=== PATIENT | male | born 1960 | race Caucasian/White ===

== ENCOUNTER 2018-06-17 18:47 | Emergency (ER) | payer OTHER | END 2018-06-17 20:55 | disposition home or self-care (01) | LOC: M ED 18:47 | DX: S82.032A Displaced transverse fracture of left patella, initial encounter for closed fracture (principal); W22.8XXA Striking against or struck by other objects, initial encounter; Y92.410 Unspecified street and highway as the place of occurrence of the external cause | CPT/HCPCS: 73564 ==

== ENCOUNTER → 2018-07-11 | Outpatient (CLI) | payer OTHER ==
[2018-07-11 14:06] LABS: FREE T3 2.6 PG/ML (2.2-4.0)
== END ==
LOC: M WUC 10:00
DX: Z13.29 Encounter for screening for other suspected endocrine disorder (principal)
CPT/HCPCS: 84443

== ENCOUNTER 2018-08-18 13:56 | Emergency (ER) | payer OTHER | END 2018-08-18 15:29 | disposition home or self-care (01) | LOC: M ED 13:56 | DX: M79.652 Pain in left thigh (principal); I10 Essential (primary) hypertension; N40.0 Benign prostatic hyperplasia without lower urinary tract symptoms; Z79.899 Other long term (current) drug therapy; Z79.82 Long term (current) use of aspirin; Z88.0 Allergy status to penicillin | CPT/HCPCS: 93971 ==

== ENCOUNTER 2018-09-06 08:18 | Day surgery (SDC) | payer OTHER ==
[2018-09-06] MEDS: NS 1,000 ML IV (09:37)
[2018-09-06] MEDS ORDERED: PROPOFOL 200 MG/20 ML VIAL As Ordered ×2 (10:42→10:43)
[2018-09-06] MEDS ORDERED: LIDOCAINE 2% INJ 100 MG/5 ML SDV (FOR ANES.) As Ordered (10:43)
== END 2018-09-06 11:48 | disposition home or self-care (01) ==
LOC: M OPP 11:48
DX: Z12.11 Encounter for screening for malignant neoplasm of colon (principal); K57.30 Diverticulosis of large intestine without perforation or abscess without bleeding; K64.8 Other hemorrhoids
CPT/HCPCS: 45378

== ENCOUNTER 2018-09-16 11:42 | Emergency (ER) | payer OTHER ==
[2018-09-16] MEDS: ACETAMINOPHEN 325 MG TAB PO (12:00)
[2018-09-16 12:42] LABS: INFLUENZA A AMPLIFICATION NEGATIVE (NEGATIVE); INFLUENZA B AMPLIFICATION NEGATIVE (NEGATIVE)
== END 2018-09-16 14:07 | disposition home or self-care (01) ==
LOC: M ED 11:42
DX: B34.9 Viral infection, unspecified (principal); M79.10 Myalgia, unspecified site; Z88.0 Allergy status to penicillin; Z79.899 Other long term (current) drug therapy; Z79.82 Long term (current) use of aspirin
CPT/HCPCS: 87502

== ENCOUNTER 2018-09-18 16:32 | Emergency (ER) | payer OTHER ==
[2018-09-18] MEDS: ACETAMINOPHEN 325 MG TAB PO (16:45)
[2018-09-18] MEDS ORDERED: ACETAMINOPHEN 325 MG TAB As Ordered (16:46)
[2018-09-18 19:58] LABS: KETONE, URINE AUTO RFX NEGATIVE (NEGATIVE); LEUKOCYTE ESTERASE UR AUTO RFX 3+ (NEGATIVE); MUCUS, URINE RFX SMALL (NEGATIVE); NITRITE, URINE AUTO RFX POSITIVE (NEGATIVE); RBC, URINE AUTO RFX 7 /HPF (0-3); SPECIFIC GRAVITY UR AUTO RFX 1.012 (1.002-1.035); SQUAM EPITHELIAL CELL UR AURFX 0 /HPF (0-6); WBC, URINE AUTO RFX TNTC /HPF (0-3)
[2018-09-18] MEDS: CIPROFLOXACIN 500 MG TAB PO (20:15)
== END 2018-09-18 20:27 | disposition home or self-care (01) ==
LOC: M ED 16:32
DX: N39.0 Urinary tract infection, site not specified (principal); R50.9 Fever, unspecified
CPT/HCPCS: 81001

== ENCOUNTER 2018-12-04 12:04 | Emergency (ER) | payer OTHER ==
[~2018-12-04] VITALS: Ht 188 cm; Wt 115.0 kg
[~2018-12-04 12:04] MED LIST: ACET-683 PO; AMLO5TAB6 PO; ASPI81TA85 PO; ATOR1TAB19 PO; CIPR-249 PO; DITR1TAB PO; FLOM0.4C39 PO; NAPR-885 PO; SENN1TAB2 PO
[2018-12-04] MEDS ORDERED: DOCU100C16 (12:13)
[2018-12-04 14:20] LABS: BLOOD UREA NITROGEN 12 MG/DL (7-18); CALCIUM LEVEL 8.5 MG/DL (8.8-10.2); CARBON DIOXIDE LEVEL 31 MEQ/L (21-32); CHLORIDE LEVEL 105 MEQ/L (98-107); CREATININE FOR GFR 0.86 MG/DL (0.70-1.30); GLOMERULAR FILTRATION RATE > 60.0 (>49); GLUCOSE, FASTING 84 MG/DL (70-100); POTASSIUM SERUM 4.2 MEQ/L (3.5-5.1); SODIUM LEVEL 139 MEQ/L (136-145)
[2018-12-04 15:02] VITALS: BP 121/78
== END 2018-12-04 15:03 | disposition home or self-care (01) ==
LOC: M ED 12:04
DX: R35.0 Frequency of micturition (principal); R60.0 Localized edema; I10 Essential (primary) hypertension; N40.0 Benign prostatic hyperplasia without lower urinary tract symptoms; Z98.890 Other specified postprocedural states; Z88.0 Allergy status to penicillin; Z79.899 Other long term (current) drug therapy

== ENCOUNTER 2019-11-15 11:03 | Day surgery (SDC) | payer OTHER ==
[~2019-11-15] VITALS: Ht 188 cm; Wt 114.7 kg
[~2019-11-15 11:03] MED LIST changes: +CLINDAMYCIN 600 MG in IV 1 EA IV ONE; +DOCU100C16; +IBUP-1022 PO; +LIDOCAINE 1% MDV 20ML VIAL SQ PRN; +LR 1,000 ML IV ONE; +MIDAZOLAM INJ 2 MG/2 ML VIAL (J2250) As Ordered ONE; +ONDANSETRON 4MG/2ML VIAL (J2405) As Ordered ONE; +SENN-53 PO; -SENN1TAB2 PO; +dexameTHASONE 4 MG/ML 1ML VIAL (J1100) As Ordered ONE; +fentaNYL 100 MCG/2 ML INJECTION (J3010) As Ordered ONE; +propofoL 500 MG/50 ML VIAL As Ordered ONE
[2019-11-15] MEDS ORDERED: CIDA500T2 PO (11:46)
[2019-11-15] MEDS ORDERED: VITA100T59 PO (11:46)
[2019-11-15] MEDS ORDERED: BUPIVACAINE HCL 0.5% 10 ML VIAL As Ordered ONE (12:10)
[2019-11-15] MEDS: dexameTHASONE 4 MG/ML 1ML VIAL (J1100) As Ordered ONE ×2 (12:10→12:56)
[2019-11-15] MEDS ORDERED: LIDOCAINE 1% MDV 20ML VIAL As Ordered ONE (12:10)
[2019-11-15 14:05] VITALS: BP 135/78
--- NOTE | 2019-11-15 19:42 | RO ---
DATE OF PROCEDURE: 11/15/2019 PREOPERATIVE DIAGNOSIS: Right second hammertoe. POSTOPERATIVE DIAGNOSIS: Right second hammertoe. PROCEDURE: Right second hammertoe correction. SURGEON: Dr. Woodrow Eller CONCILIATION COURT JUDGE: None. ANESTHESIA: Monitored anesthesia care and preoperative injection of 7 mL of 1 to 1 mixture of 1% Lidocaine plain and 1/2% Marcaine plain. ESTIMATED BLOOD LOSS: Minimal. MATERIALS: 4-0 Nylon and 3-0 Vicryl. COMPLICATIONS: None. CONDITION: Stable. Victorino Cohen is a 58-year-old man who presents to [facility] with painful right second hammertoe who presents today for surgical correction. Patient, site, and side were identified and marked in the preoperative holding area. Consent was reviewed and risks, complications and alternative to the procedure explained to the patient in detail and all questions were answered. PROCEDURE: The patient was brought to the operating room and placed on the operating room table in the supine position. Monitored anesthesia care was done by the anesthesia team. A preoperative injection of 7 mL of 1 to 1 mixture of 1% Lidocaine and 1/2% Marcaine plain were injected into the right foot. The right foot was prepped and draped in the usual sterile fashion. Tourniquet was applied to the right ankle and inflated at 250 mmHg. Dorsal incision drawn over the right second toe and carried through with a 15 blade. Extensor tendon was identified and resected at the proximal interphalangeal joint level. The collateral ligaments were released exposing the proximal phalanx and this was resected with a sagittal saw. Following this the extensor tendon was repaired with 3-0 Vicryl. There was still collection at the distal aspect of the toe and a percutaneous flexor tenotomy was performed at the distal interphalangeal joint level using #15 blade. The skin was repaired with 4-0 Nylon. The callus of the distal toes was removed using a #10 blade. The patient was brought to postanesthesia care unit with vital signs stable and neurovascular status intact. He we will weightbearing as tolerated in a postoperative shoe and followup in the office in 2 days.
== END 2019-11-15 14:16 | disposition home or self-care (01) ==
LOC: M SDC 11:03
PROVIDERS: ATTEND Podiatrist Foot & Ankle Surgery
DX: M20.41 Other hammer toe(s) (acquired), right foot (principal); I10 Essential (primary) hypertension; E78.5 Hyperlipidemia, unspecified; Z79.82 Long term (current) use of aspirin; Z79.899 Other long term (current) drug therapy; Z88.0 Allergy status to penicillin
CPT/HCPCS: 28285; 88300; J1100; J2250; J2405; J3010

== ENCOUNTER → 2020-03-06 | Outpatient (CLI) | payer OTHER ==
[~2020-03-06] MED LIST changes: +CIDA500T2 PO; -CLINDAMYCIN 600 MG in IV 1 EA IV ONE; -LIDOCAINE 1% MDV 20ML VIAL SQ PRN; -LR 1,000 ML IV ONE; -MIDAZOLAM INJ 2 MG/2 ML VIAL (J2250) As Ordered ONE; -ONDANSETRON 4MG/2ML VIAL (J2405) As Ordered ONE; +VITA100T59 PO; -dexameTHASONE 4 MG/ML 1ML VIAL (J1100) As Ordered ONE; -fentaNYL 100 MCG/2 ML INJECTION (J3010) As Ordered ONE; -propofoL 500 MG/50 ML VIAL As Ordered ONE
== END ==
LOC: M LAB 13:33
PROVIDERS: ATTEND Specialist
DX: N35.912 Unspecified bulbous urethral stricture, male (principal)

== ENCOUNTER → 2020-03-06 | Outpatient (CLI) | payer OTHER | LOC: M LABSMTC 12:55 | PROVIDERS: ATTEND Family Medicine | DX: Z20.828 Contact with and (suspected) exposure to other viral communicable diseases (principal) | CPT/HCPCS: C8903; U0003 ==

== ENCOUNTER 2020-07-28 17:59 | Emergency (ER) | payer OTHER ==
[~2020-07-28] VITALS: Ht 188 cm; Wt 120.5 kg
[~2020-07-28 17:59] MED LIST changes: +AMLO1TAB24 PO; -AMLO5TAB6 PO; -ASPI81TA85 PO; +ASPI81TA86 PO
[2020-07-28] MEDS ORDERED: GABAPENTIN 300 MG CAP PO ONE (20:45)
[2020-07-28 20:49] LABS: BASO % 0.5 % (0.0-1.0); EOS # 0.1 10^3/uL (0.0-0.5); EOS % 1.5 % (0.0-3.0); HEMATOCRIT 37.8 % (42.0-52.0); HEMOGLOBIN 12.1 g/dl (13.5-17.5); LYMPH # 2.1 10^3/uL (1.5-5.0); LYMPH % 25.3 % (24.0-44.0); MEAN CORPUSCULAR HEMOGLOBIN 28.2 pg (27.0-33.0); MEAN CORPUSCULAR VOLUME 88.1 fl (80.0-96.0); MONO # 0.7 10^3/uL (0.0-0.8); MONO % 7.9 % (0.0-5.0); NEUTROPHILS # 5.3 10^3/uL (1.5-8.5); NEUTROPHILS % 64.4 % (36.0-66.0); PLATELET COUNT, AUTOMATED 219 10^3/uL (150-450); RED BLOOD COUNT 4.29 10^6/uL (4.30-6.10); WHITE BLOOD COUNT 8.2 10^3/uL (4.0-10.0)
[2020-07-28 21:07] LABS: HEMOGLOBIN A1c 5.3 %
[2020-07-28 21:13] LABS: BLOOD UREA NITROGEN 14 MG/DL (7-18); CALCIUM LEVEL 8.4 MG/DL (8.8-10.2); CARBON DIOXIDE LEVEL 27 MEQ/L (21-32); CHLORIDE LEVEL 110 MEQ/L (98-107); CREATININE FOR GFR 0.88 MG/DL (0.70-1.30); GLOMERULAR FILTRATION RATE > 60.0 (>49); GLUCOSE, FASTING 84 MG/DL (70-100); IRON (FE) 51 UG/DL (65-175); PERCENT SATURATION 22.7 % (19.7-50.0); POTASSIUM SERUM 4.2 MEQ/L (3.5-5.1); SODIUM LEVEL 142 MEQ/L (136-145); TOTAL IRON BINDING CAPACITY 225 UG/DL (250-450)
[2020-07-28 22:31] VITALS: BP 152/87
[2020-07-28] MEDS ORDERED: NEUR300C PO (23:23)
== END 2020-07-29 00:09 | disposition home or self-care (01) ==
LOC: M ED 17:59
DX: E11.40 Type 2 diabetes mellitus with diabetic neuropathy, unspecified (principal); I10 Essential (primary) hypertension; E78.5 Hyperlipidemia, unspecified; N40.2 Nodular prostate without lower urinary tract symptoms; Z88.0 Allergy status to penicillin; Z79.899 Other long term (current) drug therapy

== ENCOUNTER → 2020-10-31 | Outpatient (CLI) | payer OTHER ==
[~2020-10-31] MED LIST changes: +NEUR300C PO
== END ==
LOC: M LAB 10:48
PROVIDERS: ATTEND Physician Assistant
DX: N40.1 Benign prostatic hyperplasia with lower urinary tract symptoms (principal)

== ENCOUNTER 2020-12-11 16:00 | Inpatient (IN) | payer OTHER ==
[~2020-12-11] VITALS: Ht 188 cm; Wt 116.1 kg
[~2020-12-11 16:00] MED LIST changes: -ASPI81TA26 PO; -CEPH500T PO; -IBUP80TA PO; -OXYB15TA14 PO
--- OUTSIDE RECORDS SUMMARY | 2020-12-11 16:07 | CCD | Continuity of Care Document ---
Author Author Victorino JOHNSON PA-C Organization Unknown Address [address] [place] [address] Phone [phone] Care Team Providers Care Waist Pleater Name Role Phone Valerie Pierson A[place]UST[place] AUTM [phone] Problems Description No Information Available Social History Type Date Description Comments Sex Unknown ETOH Use Occasionally consumes alcohol Tobacco Use Start: Unknown Denies Smoking Allergies, Adverse Reactions, Alerts Active Allergies Reaction Severity Comments Date Penicillin 06/21/2018 Medications Active Medications SIG Qnty Indications Ordering Provide r Date Ibuprofen 800mg Tablets Take 1 Tablet By Mouth Three Times A Day as Needed 90tabs R20.0 Bib Mcgarry MD 03/07/2019 Zanaflex 4mg Capsules 1 by mouth at bedtime 60caps M51.36 Matty Woods MD 08/03/2018 Oxybutynin Chloride ER 10mg Tablets ER 24HR 1 by mouth every day Unknown 00//0 000 Atorvastatin Calcium 10mg Tablets 1 by mouth every day Unknown Docqlace 100mg Capsules 3 caps by mouth every other day Unknown Amlodipine Besylate 5mg Tablets 1 by mouth every day Unknown Tamsulosin HCL 0.4mg Capsules 1 daily 1/2 hour after same meal Unknown Aspirin 81mg Tablets DR 1 by mouth every day Unknown Senna 8.6mg Tablets 1-2 by mouth every night at bedtime as needed Unknown Tylenol Extra Strength 500mg Table ts 1-2 pills 2-3x/d as needed Unknown 0 Immunizations Description No Information Available Vital Signs Date Vital Result Comment 03/07/2019 1:32pm BP Systolic 140 mmHg BP Diastolic 90 mmHg 06/21/2018 9:07am Body Temperature 98.4 F Height 71 inches 5'11" Weight 226.00 lb BMI (Body Mass Index) 31.5 kg/m2 Results Description No Information Available Procedures Date Code Description Status 11/25/2020 38411 X-Ray Shoulder Complete Complete d Medical Devices Description No Information Available Encounters Description No Information Available Assessments Date Code Description Provider 11/25/2020 M17.0 Bilateral primary osteoarthritis of knee Aston Johnson PA-C Plan of Treatment No Information Available Functional Status Description No Information Available Mental Status Description No Information Available Referrals Description No Information Available
--- OUTSIDE RECORDS SUMMARY | 2020-12-11 16:07 | CCD | Continuity of Care Document ---
Author Author Victorino LEGGETT DPM Organization Unknown Address [address] [place] [address], [address] [place] [address] Phone [phone] Care Team Providers Care Developing Machine Operator Name Role Phone Servage Valerie JACKMAN AUTM [phone] Canelo Duncan M.D AUTM [phone] Problems Active Problems Provider Date Hammer toe Woodrow Leggett DPM Onset: 08/29/2019 Corns and callosities Woodrow Leggett DPM Onset: 03/19/2020 Onychomycosis Woodrow Leggett DPM Onset: 03/19/2020 Social History Type Date Description Comments Sex Unknown ETOH Use Occasionally consumes beer Tobacco Use Start: Unknown Patient has never smoked Allergies, Adverse Reactions, Alerts Active Allergies Reaction Severity Comments Date Penicillin Hives 06/28/2018 Medications Active Medications SIG Qnty Indications Ordering Provide r Date Ammonium Lactate 12% Cream Apply To Feet Daily 140units Woodrow Leggett DPM 05/28/2020 Ondansetron HCL 4mg Tablets 1 tablet every 6 hours as needed for nausea 24tabs ALEXANDR Rivera 11/17/2019 Oxycodone-Acetaminophen 5-325mg Ta blets 1tablets every 6 hours as needed for pain 20tabs Woodrow Leggett DPM 11/17/2019 Hydrocodone-Acetaminophen 5-325mg Tablets 1-2 tablets by mouth every 6 hours as needed pain 20tabs Woodrow Leggett DPM 11/14/2019 Ciclopirox 8% Solution apply to affected nail(s) as directed 6.6units Woodrow Leggett DPM 11/07/2 018 Oxybutynin Chloride 5mg Tablets Unknown Polyethylene Glycol 3350 3350NF Packet Unknown Flucelvax Quadrivalent 2635-5719 0.5ml Jeannette Unknown Oxybutynin Chloride ER 5mg Tablets ER 24HR Unknown Hydrocortisone 2.5% Cream Unknown Hydrocortisone-Aloe 1% Cream Unknown Levofloxacin 500mg Tablets Unknown Ciprofloxacin HCL 500mg Tablets Unknown Mapap 500mg Tablets Unknown Tamsulosin HCL 0.4mg Capsules Unknown Docusate Sodium 100mg Capsules Unknown Aspir-Low 81mg Tablets DR Take One Tablet By Mouth Every Day Unknown Senna 8.6mg Tablets Servage ANPValerie L. Oxybutynin Chloride ER 10mg Tablets ER 24HR Servage ANP,Valerie L. Mapap 500mg Capsules Servage ANPDonaldValerie L. Atorvastatin Calcium 10mg Tablets Servage ANP,Valerie L. Amlodipine Besylate 5mg Tablets Servage ANP,Valerie L. Immunizations Description No Information Available Vital Signs Date Vital Result Comment 05/28/2020 10:45am BP Systolic 126 mmHg BP Diastolic 78 mmHg 10/09/2019 1:19pm Height 74 inches 6'2" Weight 256.00 lb BP Systolic 132 mmHg BP Diastolic 70 mmHg Heart Rate 75 /min BMI (Body Mass Index) 32.9 kg/m2 Results Description No Information Available Procedures Description No Information Available Medical Devices Description No Information Available Encounters Type Date Location Provider Dx Diagnosis Office Visit 09/30/2020 2:45p [place] [facility] Woodrow Leggett DPM M20.40 Other hammer toe(s) (acquired), unspecified foot L84 Corns and callosities Office Visit 07/29/2020 2:45p [place] [facility] Woodrow Leggett DPM M20.40 Other hammer toe(s) (acquired), unspecified foot L84 Corns and callosities B35.1 Tinea unguium Assessments Date Code Description Provider 09/30/2020 M20.40 Other hammer toe(s) (acquired), unspecified foot Woodrow Leggett DPM 09/30/2020 L84 Corns and callosities Woodrow Leggett DPM 07/29/2020 M20.40 Other hammer toe(s) (acquired), unspecified foot Woodrow Leggett DPM 07/29/2020 L84 Corns and callosities Woodrow Leggett DPM 07/29/2020 B35.1 Tinea unguium Woodrow Leggett DPM Plan of Treatment Future Appointment(s):* 02/17/2021 2:30 pm - Woodrow Leggett DPM at [facility] Functional Status Description No Information Available Mental Status Description No Information Available Referrals Refer to Reason for Referral Status Appt Date Woodrow Leggett DPM Created [address] [address] [phone]
--- OUTSIDE RECORDS SUMMARY | 2020-12-11 16:07 | CCD ---
Author Author [facility] ems Organization [facility] Address Unknown Phone Unavailable Care Team Providers Care Asset Protection Lead Name Role Phone Valerie Pierson Unavailable PROBLEMS Type Condition ICD9-CM Code EAW24-DI Code Onset Dates Condition S tatus SNOMED Code Notes Problem Arthritis M19.90 Active 5312348 Problem Essential hypertension I10 Active 89817120 He has a history of hypertension, but his blood pressure is quite well controlled on amlodipine 5 mg daily. Problem Benign prostatic hyperplasia , unspecified whether lower urinary tract symptoms present N40.0 Active 111465390 Problem Diverticulosis of large intestine without hemorrhage K57.30 Active 259240786 Problem BMI 30.0-30.9,adult Z68.30 Active 255772028 Problem Iron deficiency anemia, unspecified iron deficiency an emia type D50.9 Active 60146322 Problem Constipation, unspecified constipation type K59.00 Active 96504484 Problem Pure hypercholesterolemia E78.00 Active 846214 004 He is on atorvastatin therapy with optimal lipid control as of 09/26/2019. 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 He had a cystoscopy in April 2018 which showed a bulbous urethral stricture which was treated with laser urethrotomy and urethral dilation. Problem Injury of left knee, subsequent encounter S89.92XD Active 549119232 Problem Other intervertebral disc degeneration, lumbar region M51.36 Active 07265761 ALLERGIES Allergen (clinical drug ingredient) Drug/Non Drug Allergy do cumented on EMR Reaction Allergy Type Onset Date Status Penicillin (For Allergies Use Only) Hives Drug Allerg y Active ENCOUNTERS from 1960 to 2020-11-05 Encounter Location Date Provider Diagnosis [facility] [place] [address] Oct, Valerie Pierson Annual physical exam Z00.00 ; Essential hypertension I10 ; Pure hypercholesterolemia E78.00 ; Arthritis M19.90 ; Constipation, unspecified constipation type K59.00 ; Injury of left knee, subsequent encounter S89.92XD ; Urethral stricture due to infective diseases classified elsewhere N37 ; Benign prostatic hyperplasia, unspecified whether lower urinary tract symptoms present N40.0 ; Other intervertebral disc degeneration, lumbar region M51.36 ; Immunization refused Z28.21 and Iron deficiency anemia, unspecified iron deficiency anemia type D50.9 IMMUNIZATIONS Vaccine Route Administration Date Status Influenza (18 yrs & older) Flublok IM Intramuscular Aug 22, 2018 Administered SOCIAL HISTORY Tobacco Use: Social History Observation Description Date Details (start date - stop date) Never Smoker Sex Assigned At : Social History Observation Description Sex Assigned At Unknown Education: Question Answer Notes Level of Education: Not finished High School 10 grade Audit Question Answer Notes Total Score: 1 Interpretation: Alcohol Education Language: Question Answer Notes Languages spoken: Vietnamese Moravian: Question Answer Notes Moravian 21 Protestant Domestic Violence: Question Answer Notes Status: Sexual Hx: Question Answer Notes Had sex in the last 12 months (vaginal, oral, or anal)? Yes Have you ever had an STD? No with Women only Use protection? No Drug and Alcohol Question Answer Notes Total Score: 0 Interpretation: No problems reported Alcohol Screening: Question Answer Notes Did you have a drink containing alcohol in the past year? Ye s Points 1 Interpretation Negative How often did you have six or more drinks on one occas ion in the past year? Never (0 points) How many drinks did you have on a typica l day when you were drinking in the past year? 1 or 2 (0 points) How often did you have a drink containing alcohol in t he past year? Monthly or less (1 point) Tobacco Use: Question Answer Notes Are you a: never smoker never smoker REASON FOR REFERRAL No Information VITAL SIGNS Weight 262 lbs Oct, Height 74 in Oct, BMI 33.64 kg/m2 Oct, Heart Rate 79 /min Oct, Respiratory Rate 18 /min Oct, Temperature 98.8 degrees Fahrenheit Oct, Oximetry 95% Oct, Blood pressure systolic 100 mm Hg Oct, Blood pressure diastolic 70 mm Hg Oct, MEDICATIONS Medication SIG (Take, Route, Frequency, Duration) Notes Start Da te End Date Status Tamsulosin HCl 0.4 MG 1 capsule 30 minutes after t he same meal each day Orally Once a day for 30 Active Senna 8.6 MG TAKE 1 TO 2 TABLETS BY MOUTH BEFORE BEDTIME NEEDED fo r 30 Active Atorvastatin Calcium 10 MG 1 tablet Orally Once a day Active Aspirin Adult Low Dose 81 MG 1 tablet Orally Once a day for 30 Active Docusate Sodium 100 MG 2 tab Orally bid for 30 Active Tamsulosin HCl 0.4 MG 1 capsule 30 minutes after t he same meal each day Orally Once a day Active Lac-Hydrin 12 % 1 application to affected area Externally Twice a day Active Oxybutynin Chloride ER 10 MG 1 tablet Orally Once a day Active Docusate Sodium 100 MG 2 tab Orally bid for 30 day(s) Active Loratadine 10 MG 1 tablet Orally Once a day for 30 Active Aspirin Adult Low Dose 81 MG 1 tablet Orally Once a day Active PROCEDURES No Information RESULTS No Results REASON FOR VISIT Annual Exam 06 months follow up MEDICAL (GENERAL) HISTORY Type Description Date Medical History Essential hypertension Medical History Benign prostatic hyperplasia , unspecified whether lower urinary tract symptoms present Medical History Pure hypercholesterolemia Medical History Arthritis Medical History Constipation, unspecified constipation t ype Medical History BMI 30.0-30.9,adult Medical History 07/14/2018, 24-hour Holter m onitor, sinus rhythm, multiple PVCs, rare PACs Medical History 07/15/2018 PSA 2.81 Surgical History inguinal hernia left unknown Surgical History tonsils unknown Surgical History Cystoscopy: bulbous urethral stricture which was treated with laser urethrotomy and urethral dilation 05/09/2018 Surgical History colonoscopy -mild to moderate diverticul osis 10 year follow up 09/06/18 Surgical History Right 2nd hammertoe correction-Dr. Eller 11/15/2019 Goals Section No Information Health Concerns No Information MEDICAL EQUIPMENT No Information MENTAL STATUS No Information FUNCTIONAL STATUS No Information ASSESSMENTS Encounter Date Diagnosis Assessment Notes Treatment Notes Treatm ent Clinical Notes Oct, Annual physical exam (ICD-10 - Z00.00) age appropriate anticipatory guidance given, per USPSTF recommendations; immunizations up to date. discussed plans for implementing improvement in identified areas Oct, Essential hypertension (ICD-10 - I10) Per JNC 8 guidelines, goal BP < 140/90 <60,on norvasc.. Advised heart-healthy diet, sodium restriction continues to follow with Dr. Duncan Oct, Pure hypercholesterolemia (ICD-10 - E78.00) tolerating lipitor, had cardiology appt scheduled with Dr. Flowers states he had a holter monitor which was negative. found in the old notes. found lipid from june Lipids cholesterol 142, triglyceride 72, HDL 54, LDL 75, risk factor 2.6 Lastest lipids 09/26/19 chol 140, tri 73, hdl 68, ldl75, risk fator 2.1 10/[address] Duncan, signed release to obtain Oct, Arthritis (ICD-10 - M19.90) states he has arthritis in his back went to ortho Oct, Constipation, unspecified constipation type (ICD -10 - K59.00) takes stool softners with effect, states he wants to increase his softners discussed with pt oxybutynin is contributing to his issues Oct, Injury of left knee, subsequent encounter (ICD-1 0 - S89.92XD) pt states this is resolved. Oct, Urethral stricture due to in fective diseases classified elsewhere (ICD-10 - N37) Treated by urology in Dr. Catalino Maria, Oct, Benign prostatic hyperplasia , unspecified whether lower urinary tract symptoms present (ICD-10 - N40.0) Currently on tamazolin, and oxybutynin. Discussed with patient that oxybutynin will cause dry mucous membranes of the eyes, mouth, urinary and intestinal system PSA 03/31/18=2.54 thru urology2 no recent numbers Oct, Other intervertebral disc de generation, lumbar region (ICD-10 - M51.36) Oct, Immunization refused (ICD-10 - Z28.21) flu vaccine last fall at [facility] Oct, Iron deficiency anemia, unsp ecified iron deficiency anemia type (ICD-10 - D50.9) told by Dr. Duncan that he is iron deficient, taking a iron tab per day, states Dr. Duncan is sending him to GI Oct, Other signed release to get records from Dr. Philip, 6 month follow up PLAN OF TREATMENT Medication Medication Name Sig Start Date Stop Date Oxybutynin Chloride ER 10 MG 1 tablet Orally Once a day Docusate Sodium 100 MG 2 tab Orally bid for 30 day(s) Aspirin Adult Low Dose 81 MG 1 tablet Orally Once a day Tamsulosin HCl 0.4 MG 1 capsule 30 minutes after t he same meal each day Orally Once a day Atorvastatin Calcium 10 MG 1 tablet Orally Once a day Treatment Notes Assessment Notes Clinical Notes Annual physical exam age appropriate ant icipatory guidance given, per USPSTF recommendations; immunizations up to date. discussed plans for implementing improvement in identified areas Essential hypertension Per JNC 8 guideli justin, goal BP < 140/90 <60,on norvasc.. Advised heart-healthy diet, sodium restriction continues to follow with Dr. Duncan Pure hypercholesterolemia tolerating lip itor, had cardiology appt scheduled with Dr. Flowers states he had a holter monitor which was negative. found in the old notes. found lipid from june acceptableLipids cholesterol 142, triglyceride 72, HDL 54, LDL 75, risk factor 2.6Lastest lipids 09/26/19 chol 140, tri 73, hdl 68, ldl75, risk fator 2.08/[address] Duncan, signed release to obtain Arthritis states he has arthri tis in his back went to ortho Constipation, unspecified constipation type takes stool softners with effect, states he wants to increase his softners discussed with pt oxybutynin is contributing to his issues Injury of left knee, subsequent encounter pt states this is resolved. Urethral stricture due to infective diseases classified else where Treated by urology in Dr. Catalino Maria, Benign prostatic hyperplasia, unspecifie d whether lower urinary tract symptoms present Currently on tamazolin, and oxybutynin. Discussed with patient that oxybutynin will cause dry mucous membranes of the eyes, mouth, urinary and intestinal systemPSA 03/31/18=2.54 thru [id number] recent numbers Immunization refused flu vaccine last fa ll at [facility] Iron deficiency anemia, unspecified iron deficiency anemia t ype told by Dr. Duncan that he is iron deficient, taking a iron tab per day, states Dr. Duncan is sending him to GI Next Appt Details Valerie 6 months Reason: Provider Name:Valerie Pierson, 10:30:00 AM, [address] [place], [address], Insurance Providers Payer Name Payer Address Payer Phone Insured Name Patient Relati onship to Insured Coverage Start Date Coverage End Date [facility] [employer] CLAIM[employer] DEPT [address] [facility] [phone] EVGENY MENDEZ
--- OUTSIDE RECORDS SUMMARY | 2020-12-11 16:07 | CCD | Continuity of Care Document ---
Author Author Victorino LEGGETT DPM Organization Unknown Address [address] [place] [address], [facility] [address] [place] [address] Phone [phone] Care Team Providers Care Plumber Pipe Fitting Name Role Phone Servage Valerie JACKMAN AUTM [phone] Canelo Duncan M.D AUTM [phone] Problems Active Problems Provider Date Hammer toe [...] Glycol 3350 3350NF Packet Unknown Flucelvax Quadrivalent 5446-1534 0.5ml Jeannette Unknown Oxybutynin Chloride ER 5mg Tablets ER 24HR Unknown Hydrocortisone 2.5% Cream Unknown Hydrocortisone-Aloe 1% Cream Unknown Levofloxacin 500mg Tablets Unknown Ciprofloxacin HCL 500mg Tablets Unknown Mapap 500mg Tablets Unknown Tamsulosin HCL 0.4mg Capsules Unknown Docusate Sodium 100mg Capsules Unknown Aspir-Low 81mg Tablets DR Take One Tablet By Mouth Every Day Unknown Senna 8.6mg Tablets Servage ANPMonicae L. Oxybutynin Chloride ER 10mg Tablets ER 24HR Servage ANPMonicae L. Mapap 500mg Capsules Servage ANPValerie L. Atorvastatin Calcium 10mg Tablets Servage ANP,Valerie [...] Date Location Provider Dx Diagnosis Office Visit 12/09/2020 2:30p [place] [facility] Woodrow Leggett DPM M20.40 Other hammer toe(s) (acquired), unspecified foot L60.0 Ingrowing nail L84 Corns and callosities Office Visit 09/30/2020 2:45p [place] [facility] Woodrow Leggett DPM M20.40 Other hammer toe(s) (acquired), unspecified foot L84 Corns and callosities Office Visit 07/29/2020 2:45p [facility] Woodrow Leggett, SHANNON M20.40 Other hammer toe(s) (acquired), unspecified foot L84 Corns and callosities B35.1 Tinea unguium Assessments Date Code Description Provider 12/09/2020 M20.40 Other hammer toe(s) (acquired), unspecified foot Woodrow Leggett, DPM 12/09/2020 L60.0 Ingrowing nail Woodrow Leggett, DPM 12/09/2020 L84 Corns and callosities Woodrow Leggett, DPM 09/30/2020 M20.40 Other hammer toe(s) (acquired), unspecified foot Woodrow Leggett, ALEXANDRM 09/30/2020 L84 Corns and callosities Woodrow Leggett, DPM 07/29/2020 M20.40 Other hammer toe(s) (acquired), unspecified foot Woodrow Leggett, DPM 07/29/2020 L84 Corns and callosities Woodrow Leggett, DPM 07/29/2020 B35.1 Tinea unguium Woodrow Leggett DPM Plan of Treatment Future Appointment(s):* 02/17/2021 2:30 pm - Woodrow Leggett DPM at [facility] Functional Status Description No Information Available Mental Status Description No Information Available Referrals Refer to Dr Reason for Referral Status Appt Date Woodrow Leggett DPM Created [address] [address] [phone]
--- OUTSIDE RECORDS SUMMARY | 2020-12-11 16:07 | CCD | Continuity of Care Document ---
Author Author Victorino MASON M.D. Organization Unknown Address [address] [place] [id number] Phone [phone] Care Team Providers Care Farm Machinery Engine Mechanic Name Role Phone Diana MASON AUTM [phone] Social History Type Date Description Comments Sex Unknown Allergies, Adverse Reactions, Alerts Description No Known Drug Allergies Medications Active Medications SIG Qnty Indications Ordering Provide r Date Dok 100mg Capsules Take Two Capsules By Mouth Twice A Day Unknown Senna 8.6mg Tablets Take 1 To 2 Tablets By Mouth Before Bedtime as Needed Unknown Oxybutynin Chloride ER 15mg Tablets ER 24HR Take One Tablet By Mouth Every Day Unknow n Tamsulosin HCL 0.4mg Capsules Take 1 Capsule By Mouth Once A Day 30 Minutes After The Same Meal Unknown SM Aspirin Adult Low Strength 81mg Tablets DR Take 1 Tablet By Mouth Once A Day Unknown Amlodipine Besylate 5mg Tablets Take One Tablet By Mouth Every Day Unknown Ibuprofen 800mg Tablets Take 1 Tablet By Mouth Three Times A Day as Needed Unknown Atorvastatin Calcium 10mg Tablets Take One Tablet By Mouth Every Day Unknown Ammonium Lactate 12% Cream Apply To Feet Daily Unknown Gabapentin 300mg Capsules Unknown Acetaminophen Extra Strength 500mg Tablets Take One Tablet By Mouth Every 6 Hours as Needed Unknown Loratadine 10mg Tablets Take One Tablet By Mouth Every Day Unknown Famotidine 20mg Tablets Take 1 Tablet By Mouth Once A Day AT Bedtime as Needed Unknown Oxycodone-Acetaminophen 5-325mg Ta blets Take One Tablet By Mouth Every 6 Hours as Needed For Pain Maximum Daily Dose 4 Tablets Unknown Ondansetron HCL 4mg Tablets Take One Tablet By Mouth Every 6 Hours as Needed For Nausea Unknown Hydrocodone-Acetaminophen 5-325mg Tablets Unknown Vital Signs Date Vital Result Comment 10/21/2020 9:42am Height 73 inches 6'1" Weight 269.00 lb BMI (Body Mass Index) 35.5 kg/m2 Body Temperature 99.0 F BP Systolic 120 mmHg BP Diastolic 75 mmHg Heart Rate 70 /min O2 % BldC Oximetry 97 % Procedures Date Code Description Status 07/22/2020 28551 Echocardiogram, Complete Complet ed Encounters Type Date Location Provider Dx Diagnosis Office Visit 07/22/2020 10:00a [facility] I11.9 Hypertensive heart disease without heart failure E78.5 Hyperlipidemia, unspecified I34.0 Nonrheumatic mitral (valve) insufficiency Assessments Date Code Description Provider 07/22/2020 I11.9 Hypertensive heart disease witho ut heart failure [facility] 07/22/2020 E78.5 Hyperlipidemia, unspecified [facility] 07/22/2020 I34.0 Nonrheumatic mitral (valve) insu fficiency [facility] Referrals Refer to Dr Reason for Referral Status Appt Date Canelo Duncan M.D. Closed [address] [place], [place] [id number] [phone]
--- OUTSIDE RECORDS SUMMARY | 2020-12-11 16:07 | CCD | Continuity of Care Document ---
Author Author Victorino NIELSEN M.D. Organization Unknown Address [facility] [address] [place] [address] Phone [phone] Problems Active Problems Provider Date Pure hypercholesterolemia Jose Nielsen M.D. Onset: 018 Essential hypertension Jose Nielsen M.D. Onset: 07/13/2018 Male urethral stricture Jose Nielsen M.D. Onset: 1 Unspecified bulbous urethral stricture, male Jose Nieslen M.D. Onset: 01/24/2019 Social History Type Date Description Comments Sex Unknown Tobacco Use Start: Unknown Never Smoked Cigarettes Tobacco Use Start: Unknown Never Smoked Cigars Tobacco Use Start: Unknown Never Smoked A Pipe Tobacco Use Start: Unknown Never Used Smokeless Tobacco ETOH Use Occasionally consumes alcohol Tobacco Use Start: Unknown Patient has never smoked Recreational Drug Use Denies Drug Use Allergies, Adverse Reactions, Alerts Active Allergies Reaction Severity Comments Date Penicillin hives 07/13/2018 NKFA 04/25/2019 NKEA 04/25/2019 Medications Active Medications SIG Qnty Indications Ordering Provide r Date Oxybutynin Chloride ER 15mg Tablets ER 24HR Take One Tablet By Mouth Every Day 30tabs Jose Nielsen M.D. 07/26/2019 Atorvastatin Calcium 10mg Tablets 1 by mouth every day Unknown Tamsulosin HCL 0.4mg Capsules 1 by mouth every day Unknown Aspir-[address] 1 by mouth every day Unknown Senna S 8.6-50mg Tablets 2 tabs by mouth every day Unknown Docusate Calcium 240mg Capsules Unknown Tylenol Extra Strength 500mg Table ts 1 tab by mouth three times a day as needed Unknown Aspir-Low 81mg Tablets DR 1 by mouth every day Unknown Immunizations Description No Information Available Vital Signs Date Vital Result Comment 11/05/2020 8:58am BP Systolic 135 mmHg BP Diastolic 86 mmHg Heart Rate 73 /min Respiratory Rate 18 /min O2 % BldC Oximetry 93 % 04/30/2020 12:55pm BP Systolic 123 mmHg BP Diastolic 76 mmHg Heart Rate 67 /min Respiratory Rate 20 /min O2 % BldC Oximetry 93 % Weight 265.00 lb Weight 120.204 kg Results Description No Information Available Procedures Description No Information Available Medical Devices Description No Information Available Encounters Type Date Location Provider Dx Diagnosis Office Visit 11/05/2020 9:30a [facility] Jose Nielsen M.D. N35.912 Unspecified bulbous urethral stricture, male R35.0 Frequency of micturition N40.1 Benign prostatic hyperplasia with lower urinary tract symp R39.14 Feeling of incomplete bladde r emptying R97.20 Elevated prostate specific a ntigen [PSA] Assessments Date Code Description Provider 11/05/2020 N35.912 Unspecified bulbous urethral str icture, male Jose Nielsen M.D. 11/05/2020 R35.0 Frequency of micturition Jose Nielsen M.D. 11/05/2020 N40.1 Benign prostatic hyperplasia wit h lower urinary tract symptoms Jose Nielsen M.D. 11/05/2020 R39.14 Feeling of incomplete bladder em ptying Jose Nielsen M.D. 11/05/2020 R97.20 Elevated prostate specific antig en [PSA] Jose Nielsen M.D. Plan of Treatment Future Appointment(s):* 05/06/2021 9:45 am - Urology Resource Schedule at [facility] 11/05/2020 - Jose Nielsen M.D.* N35.912 Unspecified bulbous urethral stricture, male * R35.0 Frequency of micturition * N40.1 Benign prostatic hyperplasia with lower urinary tract symptoms * R39.14 Feeling of incomplete bladder emptying * R97.20 Elevated prostate specific antigen [PSA] Functional Status Description No Information Available Mental Status Description No Information Available Referrals Description No Information Available
--- OUTSIDE RECORDS SUMMARY | 2020-12-11 16:07 | CCD | Continuity of Care Document ---
Author Author Victorino JOHNSON PA-C Organization Unknown Address [address] [place] [address] Phone [phone] Care Team Providers Care Fulfillment Specialist Name Role Phone Valerie Pierson [place] AUTM [phone] Problems Description No Information Available Social History [...] Available Procedures Date Code Description Status 11/25/2020 10680 X-Ray Shoulder Complete Complete d 11/25/2020 00651 Inject/Drain Joint/Bursa Major C ompleted Medical Devices Description No Information Available Encounters Type Date Location Provider Dx Diagnosis Office Visit 11/25/2020 10:30a [facility] Aston Johnson PA-C M1 7.0 Bilateral primary osteoarthritis of knee M75.41 Impingement syndrome of righ t shoulder Assessments Date Code Description Provider 11/25/2020 M17.0 Bilateral primary osteoarthritis of knee Aston Johnson PA-C 11/25/2020 M75.41 [facility] Plan of Treatment Future Appointment(s):* 12/13/2020 10:15 am - Aston Johnson PA-C at [facility] 11/25/2020 - Aston Johnson PA-C* M17.0 Bilateral primary osteoarthritis of knee * M75.41 Impingement syndrome of right shoulder Functional Status Description No Information Available Mental Status Description No Information Available Referrals Description No Information Available
--- OUTSIDE RECORDS SUMMARY | 2020-12-11 16:07 | CCD | Continuity of Care Document ---
Author Author Victorino LEGGETT DPM Organization Unknown Address [address] [place] [address], [address] [place] [address] Phone [phone] Care Team Providers Care Steam Plant Operator Name Role Phone Servage Valerie JACKMAN AUTM [phone] Canelo Duncan M.D AUTM [phone] Problems Active Problems Provider Date Hammer toe [...] Glycol 3350 3350NF Packet Unknown Flucelvax Quadrivalent [id number] 0.5ml Jeannette Unknown Oxybutynin Chloride ER 5mg Tablets ER 24HR Unknown Hydrocortisone 2.5% Cream Unknown Hydrocortisone-Aloe 1% Cream Unknown Levofloxacin 500mg Tablets Unknown Ciprofloxacin HCL 500mg Tablets Unknown Mapap 500mg Tablets Unknown Tamsulosin HCL 0.4mg Capsules Unknown Docusate Sodium 100mg Capsules Unknown Aspir-Low 81mg Tablets DR Take One Tablet By Mouth Every Day Unknown Senna 8.6mg Tablets Servage ANPMoincae L. Oxybutynin Chloride ER 10mg Tablets ER 24HR Servage ANPMonicae L. Mapap 500mg Capsules Servage ANPDonaldValerie L. [...] Provider Dx Diagnosis Office Visit 09/30/2020 2:45p [facility] Woodrow Leggett DPM M20.40 Other hammer toe(s) (acquired), unspecified foot L84 Corns and callosities Office Visit 07/29/2020 2:45p [facility] Woodrow Leggett DPM M20.40 Other hammer toe(s) (acquired), unspecified foot L84 Corns and callosities B35.1 Tinea unguium Office Visit 05/28/2020 10:45a [facility] Woodrow Leggett DPM M20.40 Other hammer toe(s) (acquired), unspecified foot L84 Corns and callosities Assessments Date Code Description Provider 09/30/2020 M20.40 Other hammer toe(s) (acquired), unspecified foot Woodrow Leggett, SHANNON 09/30/2020 L84 Corns and callosities Woodrow Leggett, SHANNON 07/29/2020 M20.40 Other hammer toe(s) (acquired), unspecified foot Woodrow Leggett, SHANNON 07/29/2020 L84 Corns and callosities Woodrow Leggett, SHANNON 07/29/2020 B35.1 Tinea unguium Woodrow Leggett, SHANNON 05/28/2020 M20.40 Other hammer toe(s) (acquired), unspecified foot Woodrow Leggett, SHANNON 05/28/2020 L84 Corns and callosities Woodrow Leggett DPM Plan of Treatment Future Appointment(s):* 12/09/2020 2:45 pm - Woodrow Leggett DPM at [facility] Functional Status Description No Information Available Mental Status Description No Information Available Referrals Refer to Dr Reason for Referral Status Appt Date Woodrow Leggett DPM Created [address] [address] [phone]
--- OUTSIDE RECORDS SUMMARY | 2020-12-11 16:08 | CCD ---
Author Author [facility] Address Unknown Phone Unavailable Care Team Providers Care Combustion Engineer Name Role Phone KRISTAENOW, Anupama TREVINO PA Unavailable Unavailable SYMENOW, Anupama CHRISTOPHER PA Unavailable Unavailable SYMENOW, Anupama CHRISTOPHER PA Unavailable Unavailable SYMENOW, Anupama CHRISTOPHER PA Unavailable Unavailable SYMENOW, Anupama CHRISTOPHER PA Unavailable Unavailable SYMENOW, Anupama CHRISTOPHER PA Unavailable Unavailable SYMENOW, Anupama CHRISTOPHER PA Unavailable Unavailable SYMENOW, Anupama CHRISTOPHER PA Unavailable Unavailable SYMENOW, G CHRISTOPHER PA Unavailable Unavailable SYMENOW, G CHRISTOPHER PA Unavailable Unavailable SYMENOW, G CHRISTOPHER PA Unavailable Unavailable SYMENOW, G CHRISTOPHER PA Unavailable Unavailable SYMENOW, G CHRISTOPHER PA Unavailable Unavailable SYMENOW, G CHRISTOPHER PA Unavailable Unavailable SYMENOW, G CHRISTOPHER PA Unavailable Unavailable SYMENOW, G CHRISTOPHER PA Unavailable Unavailable SYMENOW, G CHRISTOPHER PA Unavailable Unavailable Servage, L Valerie LAP REGULATOR Unavailable Unavailable Servage, L Valerie LAP REGULATOR Unavailable Unavailable Servage, L Valerie LAP REGULATOR Unavailable Unavailable Servage, L Valerie LAP REGULATOR Unavailable Unavailable Servage, L Valerie LAP REGULATOR Unavailable Unavailable Servage, L Valerie LAP REGULATOR Unavailable Unavailable Servage, L Valerie LAP REGULATOR Unavailable Unavailable Servage, L Valerie LAP REGULATOR Unavailable Unavailable Servage, L Valerie LAP REGULATOR Unavailable Unavailable Servage, L Valerie LAP REGULATOR Unavailable Unavailable Servage, L Valerie LAP REGULATOR Unavailable Unavailable Servage, L Valerie LAP REGULATOR Unavailable Unavailable Servage, L Valerie LAP REGULATOR Unavailable Unavailable Servage, L Valerie LAP REGULATOR Unavailable Unavailable Servage, L Valerie LAP REGULATOR Unavailable Unavailable Servage, L Valerie LAP REGULATOR Unavailable Unavailable Servage, L Valerie LAP REGULATOR Unavailable Unavailable Servage, L Valerie LAP REGULATOR Unavailable Unavailable Servage, L Valerie LAP REGULATOR Unavailable Unavailable Servage, L Valerie LAP REGULATOR Unavailable Unavailable Servage, L Valerie LAP REGULATOR Unavailable Unavailable Servage, L Valerie LAP REGULATOR Unavailable Unavailable Servage, L Valerie LAP REGULATOR Unavailable Unavailable Servage, L Valerie LAP REGULATOR Unavailable Unavailable Servage, L Valerie LAP REGULATOR Unavailable Unavailable Servage, L Valerie LAP REGULATOR Unavailable Unavailable Servage, L Valerie LAP REGULATOR Unavailable Unavailable Servage, L Valerie LAP REGULATOR Unavailable Unavailable Servage, L Valerie LAP REGULATOR Unavailable Unavailable Servage, L Valerie LAP REGULATOR Unavailable Unavailable Servage, L Valerie LAP REGULATOR Unavailable Unavailable Servage, L Valerie LAP REGULATOR Unavailable Unavailable Servage, L Valerie LAP REGULATOR Unavailable Unavailable Servage, L Valerie LAP REGULATOR Unavailable Unavailable Servage, L Valerie LAP REGULATOR Unavailable Unavailable Servage, L Valerie LAP REGULATOR Unavailable Unavailable Servage, L Valerie LAP REGULATOR Unavailable Unavailable Servage, L Valerie LAP REGULATOR Unavailable Unavailable Servage, L Valerie LAP REGULATOR Unavailable Unavailable Servage, L Valerie LAP REGULATOR Unavailable Unavailable Servage, L Valerie LAP REGULATOR Unavailable Unavailable Servage, L Valerie LAP REGULATOR Unavailable Unavailable Servage, L Valerie LAP REGULATOR Unavailable Unavailable Servage, L Valerie LAP REGULATOR Unavailable Unavailable Servage, L Valerie LAP REGULATOR Unavailable Unavailable Servage, L Valerie LAP REGULATOR Unavailable Unavailable Servage, L Valerie LAP REGULATOR Unavailable Unavailable Servage, L Valerie LAP REGULATOR Unavailable Unavailable Servage, L Valerie LAP REGULATOR Unavailable Unavailable Servage, L Valerie LAP REGULATOR Unavailable Unavailable Servage, L Valerie LAP REGULATOR Unavailable Unavailable Servage, L Valerie LAP REGULATOR Unavailable Unavailable Servage, L Valerie LAP REGULATOR Unavailable Unavailable Servage, L Valerie LAP REGULATOR Unavailable Unavailable Servage, L Valerie LAP REGULATOR Unavailable Unavailable Servage, L Valerie LAP REGULATOR Unavailable Unavailable CROOKS SR, UMU WILD MD Unavailable Unavailable CROOKS SR, UMU WILD MD Unavailable Unavailable CROOKS SR, UMU WILD MD Unavailable Unavailable CROOKS SR, UMU WILD MD Unavailable Unavailable CROOKS SR, UMU WILD MD Unavailable Unavailable CROOKS SR, UMU WILD MD Unavailable Unavailable CROOKS SR, UMU WILD MD Unavailable Unavailable CROOKS SR, UMU WILD MD Unavailable Unavailable CROOKS SR, UMU WILD MD Unavailable Unavailable CROOKS SR, UMU WILD MD Unavailable Unavailable CROOKS SR, UMU WILD MD Unavailable Unavailable CROOKS SR, UMU WILD MD Unavailable Unavailable CROOKS SR, UMU WILD MD Unavailable Unavailable CROOKS SR, UMU WILD MD Unavailable Unavailable CROOKS SR, UMU WILD MD Unavailable Unavailable CROOKS SR, UMU WILD MD Unavailable Unavailable CROOKS SR, UMU WILD MD Unavailable Unavailable CROOKS SR, UMU WILD MD Unavailable Unavailable CROOKS SR, UMU WILD MD Unavailable Unavailable CROOKS SR, UMU WILD MD Unavailable Unavailable COROKS SR, UMU WILD MD Unavailable Unavailable CROOKS SR, UMU WILD MD Unavailable Unavailable CROOKS SR, UMU WILD MD Unavailable Unavailable CROOKS SR, UMU WILD MD Unavailable Unavailable CROOKS SR, UMU WILD MD Unavailable Unavailable CROOKS SR, UMU WILD MD Unavailable Unavailable CROOKS SR, UMU WILD MD Unavailable Unavailable CROOKS SR, UMU WILD MD Unavailable Unavailable CROOKS SR, UMU WILD MD Unavailable Unavailable CROOKS SR, UMU WILD MD Unavailable Unavailable CROOKS SR, UMU WILD MD Unavailable Unavailable CROOKS SR, UMU WILD MD Unavailable Unavailable CROOKS SR, UMU WILD MD Unavailable Unavailable CROOKS SR, UMU WILD MD Unavailable Unavailable CROOKS SR, UMU WILD MD Unavailable Unavailable CROOKS SR, UMU WILD MD Unavailable Unavailable CROOKS SR, UMU WILD MD Unavailable Unavailable CROOKS SR, UMU WILD MD Unavailable Unavailable CROOKS SR, UMU WILD MD Unavailable Unavailable CROOKS SR, UMU WILD MD Unavailable Unavailable CROOKS SR, UMU WILD MD Unavailable Unavailable CROOKS SR, UMU WILD MD Unavailable Unavailable CROOKS SR, UMU WILD MD Unavailable Unavailable CROOKS SR, UMU WILD MD Unavailable Unavailable CROOKS SR, UMU WILD MD Unavailable Unavailable CROOKS SR, UMU WILD MD Unavailable Unavailable CROOKS SR, UMU WILD MD Unavailable Unavailable CROOKS SR, UMU WILD MD Unavailable Unavailable CROOKS SR, UMU WILD MD Unavailable Unavailable CROOKS SR, UMU WILD MD Unavailable Unavailable CROOKS SR, UMU WILD MD Unavailable Unavailable CROOKS SR, UMU WILD MD Unavailable Unavailable CROOKS SR, UMU WILD MD Unavailable Unavailable CROOKS SR, UMU WILD MD Unavailable Unavailable MAJAK, R GAYLA DPM Unavailable Unavailable MAJAK, R GAYLA DPM Unavailable Unavailable MAJAK, R GAYLA DPM Unavailable Unavailable MAJAK, R GAYLA DPM Unavailable Unavailable MAJAK, R GAYLA DPM Unavailable Unavailable MAJAK, R GAYLA DPM Unavailable Unavailable MAJAK, R GAYLA DPM Unavailable Unavailable MAJAK, R GAYLA DPM Unavailable Unavailable MAJAK, R GAYLA DPM Unavailable Unavailable MAJAK, R GAYLA DPM Unavailable Unavailable MAJAK, R GAYLA DPM Unavailable Unavailable MAJAK, R GAYLA DPM Unavailable Unavailable MAJAK, R GAYLA DPM Unavailable Unavailable MAJAK, R GAYLA DPM Unavailable Unavailable MAJAK, R GAYLA DPM Unavailable Unavailable MAJAK, R GAYLA DPM Unavailable Unavailable MAJAK, R GAYLA DPM Unavailable Unavailable MAJAK, R GAYLA DPM Unavailable Unavailable MAJAK, R GAYLA DPM Unavailable Unavailable MAJAK, R GAYLA DPM Unavailable Unavailable MAJAK, R GAYLA DPM Unavailable Unavailable MAJAK, R GAYLA DPM Unavailable Unavailable MAJAK, R GAYLA DPM Unavailable Unavailable MAJAK, R GAYLA DPM Unavailable Unavailable MAJAK, R GAYLA DPM Unavailable Unavailable MAJAK, R GAYLA DPM Unavailable Unavailable MAJAK, R GAYLA DPM Unavailable Unavailable MAJAK, R GAYLA DPM Unavailable Unavailable MAJAK, R GAYLA DPM Unavailable Unavailable MAJAK, R GAYLA DPM Unavailable Unavailable ARNULFO, MAQBOOL JOSUE MD Unavailable Unavailable ARNULFO, MAQBOOL JOSUE MD Unavailable Unavailable ARNULFO, MAQBOOL JOSUE MD Unavailable Unavailable ARNULFO, MAQBOOL JOSUE MD Unavailable Unavailable ARNULFO, MAQBOOL JOSUE MD Unavailable Unavailable ARNULFO, MAQBOOL JOSUE MD Unavailable Unavailable ARNULFO, MAQBOOL JOSUE MD Unavailable Unavailable ARNULFO, MAQBOOL JOSUE MD Unavailable Unavailable ARNULFO, MAQBOOL JOSUE MD Unavailable Unavailable ARNULFO, MAQBOOL JOSUE MD Unavailable Unavailable ARNULFO, MAQBOOL JOSUE MD Unavailable Unavailable ARNULFO, MAQBOOL JOSUE MD Unavailable Unavailable ARNULFO, MAQBOOL JOSUE MD Unavailable Unavailable ARNULFO, MAQBOOL JOSUE MD Unavailable Unavailable ARNULFO, MAQBOOL JOSUE MD Unavailable Unavailable ARNULFO, MAQBOOL JOSUE MD Unavailable Unavailable ARNULFO, MAQBOOL JOSUE MD Unavailable Unavailable ARNULFO, MAQBOOL JOSUE MD Unavailable Unavailable ARNULFO, MAQBOOL JOSUE MD Unavailable Unavailable ARNULFO, MAQBOOL JOSUE MD Unavailable Unavailable ARNULFO, MAQBOOL JOSUE MD Unavailable Unavailable ARNULFO, MAQBOOL JOSUE MD Unavailable Unavailable ARNULFO, MAQBOOL JOSUE MD Unavailable Unavailable ARNULFO, MAQBOOL JOSUE MD Unavailable Unavailable ARNULFO, MAQBOOL JOSUE MD Unavailable Unavailable ARNULFO, MAQBOOL JOSUE MD Unavailable Unavailable ARNULFO, MAQBOOL JOSUE MD Unavailable Unavailable ARNULFO, MAQBOOL JOSUE MD Unavailable Unavailable ARNULFO, MAQBOOL JOSUE MD Unavailable Unavailable ARNULFO, MAQBOOL JOSUE MD Unavailable Unavailable ARNULFO, MAQBOOL JOSUE MD Unavailable Unavailable ARNULFO, MAQBOOL JOSUE MD Unavailable Unavailable ARNULFO, MAQBOOL JOSUE MD Unavailable Unavailable ARNULFO, MAQBOOL JOSUE MD Unavailable Unavailable ARNULFO, MAQBOOL JOUSE MD Unavailable Unavailable ARNULFO, MAQBOOL JOSUE MD Unavailable Unavailable ARNULFO, MAQBOOL JOSUE MD Unavailable Unavailable ARNULFO, MAQBOOL JOSUE MD Unavailable Unavailable ARNULFO, MAQBOOL JOSUE MD Unavailable Unavailable ARNULFO, MAQBOOL JOSUE MD Unavailable Unavailable ARNULFO, MAQBOOL JOSUE MD Unavailable Unavailable ARNULFO, MAQBOOL JOSUE MD Unavailable Unavailable ARNULFO, MAQBOOL JOSUE MD Unavailable Unavailable ARNULFO, MAQBOOL JOSUE MD Unavailable Unavailable ARNULFO, MAQBOOL JOSUE MD Unavailable Unavailable ARNULFO, MAQBOOL JOSUE MD Unavailable Unavailable ARNULFO, MAQBOOL JOSUE MD Unavailable Unavailable ARNULFO, MAQBOOL JOSUE MD Unavailable Unavailable ARNULFO, MAQBOOL JOSUE MD Unavailable Unavailable ARNULFO, MAQBOOL JOSUE MD Unavailable Unavailable ARNULFO, MAQBOOL JOSUE MD Unavailable Unavailable ARNULFO, MAQBOOL JOSUE MD Unavailable Unavailable ARNULFO, MAQBOOL JOSUE MD Unavailable Unavailable ARNULFO, MAQBOOL JOSUE MD Unavailable Unavailable ARNULFO, MAQBOOL JOSUE MD Unavailable Unavailable ARNULFO, MAQBOOL JOSUE MD Unavailable Unavailable ARNULFO, MAQBOOL JOSUE MD Unavailable Unavailable ARNULFO, MAQBOOL JOSUE MD Unavailable Unavailable ARNULFO, MAQBOOL JOSUE MD Unavailable Unavailable ARNULFO, MAQBOOL JOSUE MD Unavailable Unavailable ARNULFO, MAQBOOL JOSUE MD Unavailable Unavailable ARNULFO, MAQBOOL JOSUE MD Unavailable Unavailable ARNULFO, MAQBOOL JOSUE MD Unavailable Unavailable ARNULFO, MAQBOOL JOSUE MD Unavailable Unavailable ARNULFO, MAQBOOL JOSUE MD Unavailable Unavailable ARNULFO, MAQBOOL JOSUE MD Unavailable Unavailable ARNULFO, MAQBOOL JOSUE MD Unavailable Unavailable ARNULFO, MAQBOOL JOSUE MD Unavailable Unavailable ARNULFO, MAQBOOL JOSUE MD Unavailable Unavailable ARNULFO, MAQBOOL JOSUE MD Unavailable Unavailable ARNULFO, MAQBOOL JOSUE MD Unavailable Unavailable ARNULFO, MAQBOOL JOSUE MD Unavailable Unavailable ARNULFO, MAQBOOL JOSUE MD Unavailable Unavailable ARNULFO, MAQBOOL JOSUE MD Unavailable Unavailable OBEN, T MARLON MD Unavailable Unavailable OBEN, T MARLON MD Unavailable Unavailable OBEN, T MARLON MD Unavailable Unavailable OBEN, T MARLON MD Unavailable Unavailable OBEN, T MARLON MD Unavailable Unavailable OBEN, T MARLON MD Unavailable Unavailable OBEN, T MARLON MD Unavailable Unavailable OBEN, T MARLON MD Unavailable Unavailable OBEN, T MARLON MD Unavailable Unavailable OBEN, T MARLON MD Unavailable Unavailable OBEN, T MARLON MD Unavailable Unavailable OBEN, T MARLON MD Unavailable Unavailable OBEN, T MARLON MD Unavailable Unavailable OBEN, T MARLON MD Unavailable Unavailable OBEN, T MARLON MD Unavailable Unavailable OBEN, T MARLON MD Unavailable Unavailable OBEN, T MARLON MD Unavailable Unavailable OBEN, T MARLON MD Unavailable Unavailable OBEN, T MARLON MD Unavailable Unavailable OBEN, T MARLON MD Unavailable Unavailable OBEN, T MARLON MD Unavailable Unavailable OBEN, T MARLON MD Unavailable Unavailable OBEN, T MARLON MD Unavailable Unavailable OBEN, T MARLON MD Unavailable Unavailable OBEN, T MAROLN MD Unavailable Unavailable OBEN, T MARLON MD Unavailable Unavailable OBEN, T MARLON MD Unavailable Unavailable OBEN, T MARLON MD Unavailable Unavailable OBEN, T MARLON MD Unavailable Unavailable OBEN, T MARLON MD Unavailable Unavailable OBEN, T MARLON MD Unavailable Unavailable OBEN, T MARLON MD Unavailable Unavailable OBEN, T MARLON MD Unavailable Unavailable OBZuly DELGADILLO MD Unavailable Unavailable OBZuly DELGADILLO MD Unavailable Unavailable OBZuly DELGADILLO MD Unavailable Unavailable OBZuly DELGADILLO MD Unavailable Unavailable OBZuly DELGADILLO MD Unavailable Unavailable OBZuly DELGADILLO MD Unavailable Unavailable OBZuly DELGADILLO MD Unavailable Unavailable OBZuly DELGADILLO MD Unavailable Unavailable OBZuly DELGADILLOIX Unavailable Unavailable OBZuly DELGADILLO MD Unavailable Unavailable OBZuly DELGADILLO MD Unavailable Unavailable OBZuly DELGADILLO MD Unavailable Unavailable OBZuly DELGADILLOIX Unavailable Unavailable OBZuly DELGADILLOIX Unavailable Unavailable OBZuly DELGADILLOIX Unavailable Unavailable OBZuly DELGADILLOIX Unavailable Unavailable OBZuly DELGADILLO MD Unavailable Unavailable OBZuly DELGADILLO MD Unavailable Unavailable OBZuly DELGADILLO MD Unavailable Unavailable OBLEONA, Zuly MASON MD Unavailable Unavailable Johnson, M Barratt PA Unavailable Unavailable Johnson, M Barratt PA Unavailable Unavailable Johnson, M Barratt PA Unavailable Unavailable Johnson, M Barratt PA Unavailable Unavailable Johnson, M Barratt PA Unavailable Unavailable Johnson, M Barratt PA Unavailable Unavailable Johnson, M Barratt PA Unavailable Unavailable Johnson, M Barratt PA Unavailable Unavailable Johnson, M Barratt PA Unavailable Unavailable Johnson, M Barratt PA Unavailable Unavailable Johnson, M Barratt PA Unavailable Unavailable Johnson, M Barratt PA Unavailable Unavailable Johnson, M Barratt PA Unavailable Unavailable Johnson, M Barratt PA Unavailable Unavailable Johnson, M Barratt PA Unavailable Unavailable Johnson, M Barratt PA Unavailable Unavailable Johnson, M Barratt PA Unavailable Unavailable Johnson, M Barratt PA Unavailable Unavailable Johnson, M Barratt PA Unavailable Unavailable Johnson, M Barratt PA Unavailable Unavailable Johnson, M Barratt PA Unavailable Unavailable Johnson, M Barratt PA Unavailable Unavailable Johnson, M Barratt PA Unavailable Unavailable Johnson, M Barratt PA Unavailable Unavailable Johnson, M Barratt PA Unavailable Unavailable Johnson, M Barratt PA Unavailable Unavailable Johnson, M Barratt PA Unavailable Unavailable OBZuly DELGADILLO MD Unavailable Unavailable OBZuly DELGADILLO MD Unavailable Unavailable OBZuly DELGADILLO MD Unavailable Unavailable OBZuly DELGADILLO MD Unavailable Unavailable OBZuly DELGADILLO MD Unavailable Unavailable OBZuly DELGADILLO MD Unavailable Unavailable OBZuly DELGADILLO MD Unavailable Unavailable OBEN, T MARLON MD Unavailable Unavailable OBEN, T MARLON MD Unavailable Unavailable OBEN, T MARLON MD Unavailable Unavailable OBEN, T MARLON MD Unavailable Unavailable OBEN, T MARLON MD Unavailable Unavailable OBEN, T MARLON MD Unavailable Unavailable OBEN, T MARLON MD Unavailable Unavailable OBEN, T MARLON MD Unavailable Unavailable OBEN, T MARLON MD Unavailable Unavailable OBEN, T MARLON MD Unavailable Unavailable OBEN, T MARLON MD Unavailable Unavailable OBEN, T MARLON MD Unavailable Unavailable OBEN, T MARLON MD Unavailable Unavailable OBEN, T MARLON MD Unavailable Unavailable OBEN, T MARLON MD Unavailable Unavailable OBEN, T MARLON MD Unavailable Unavailable OBEN, T MARLON MD Unavailable Unavailable OBEN, T MARLON MD Unavailable Unavailable OBEN, T MARLON MD Unavailable Unavailable OBEN, T MARLON MD Unavailable Unavailable OBEN, T MARLON MD Unavailable Unavailable OBEN, T MARLON MD Unavailable Unavailable OBEN, T MARLON MD Unavailable Unavailable OBEN, T MARLON MD Unavailable Unavailable OBEN, T MARLON MD Unavailable Unavailable OBEN, T MARLON MD Unavailable Unavailable OBEN, T MARLON MD Unavailable Unavailable OBEN, T MARLON MD Unavailable Unavailable OBEN, T MARLON MD Unavailable Unavailable OBEN, T MARLON MD Unavailable Unavailable OBEN, T MARLON MD Unavailable Unavailable OBEN, T MARLON MD Unavailable Unavailable OBEN, T MARLON MD Unavailable Unavailable OBEN, T MARLON MD Unavailable Unavailable OBEN, T MARLON MD Unavailable Unavailable OBEN, T MARLON MD Unavailable Unavailable OBEN, T MARLON MD Unavailable Unavailable OBEN, T MARLON MD Unavailable Unavailable OBEN, T MARLON MD Unavailable Unavailable OBEN, T MARLON MD Unavailable Unavailable OBEN, T MARLON MD Unavailable Unavailable OBEN, T MARLON MD Unavailable Unavailable OBEN, T MARLON MD Unavailable Unavailable OBEN, T MARLON MD Unavailable Unavailable OBEN, T MARLON MD Unavailable Unavailable OBEN, T MARLON MD Unavailable Unavailable HERMINIA DUNCAN MD Unavailable Unavailable HERMINIA DUNCAN MD Unavailable Unavailable HERMINIA DUNCAN MD Unavailable Unavailable HERMINIA DUNCAN MD Unavailable Unavailable HERMINIA DUNCAN MD Unavailable Unavailable HERMINIA DUNCAN MD Unavailable Unavailable HERMINIA DUNCAN MD Unavailable Unavailable ARNULFO, MAQBOOL JOSUE MD Unavailable Unavailable ARNULFO, MAQBOOL JOSUE MD Unavailable Unavailable ARNULFO, MAQBOOL JOSUE MD Unavailable Unavailable ARNULFO, MAQBOOL JOSUE MD Unavailable Unavailable ARNULFO, MAQBOOL JOSUE MD Unavailable Unavailable ARNULFO, MAQBOOL JOSUE MD Unavailable Unavailable ARNULFO, MAQBOOL JOSUE MD Unavailable Unavailable ARNULFO, MAQBOOL JOSUE MD Unavailable Unavailable ARNULFO, MAQBOOL JOSUE MD Unavailable Unavailable ARNULFO, MAQBOOL JOSUE MD Unavailable Unavailable ARNULFO, MAQBOOL JOSUE MD Unavailable Unavailable ARNULFO, MAQBOOL JOSUE MD Unavailable Unavailable ARNULFO, MAQBOOL JOSUE MD Unavailable Unavailable ARNULFO, MAQBOOL JOSUE MD Unavailable Unavailable ARNULFO, MAQBOOL JOSUE MD Unavailable Unavailable ARNULFO, MAQBOOL JOSUE MD Unavailable Unavailable ARNULFO, MAQBOOL JOSUE MD Unavailable Unavailable ARNULFO, MAQBOOL JOSUE MD Unavailable Unavailable ARNULFO, MAQBOOL JOSUE MD Unavailable Unavailable ARNULFO, MAQBOOL JOSUE MD Unavailable Unavailable ARNULFO, MAQBOOL JOSUE MD Unavailable Unavailable ARNULFO, MAQBOOL JOSUE MD Unavailable Unavailable ARNULFO, MAQBOOL JOSUE MD Unavailable Unavailable ARNULFO, MAQBOOL JOSUE MD Unavailable Unavailable ARNULFO, MAQBOOL JOSUE MD Unavailable Unavailable ARNULFO, MAQBOOL JOSUE MD Unavailable Unavailable ARNULFO, MAQBOOL JOSUE MD Unavailable Unavailable ARNULFO, MAQBOOL JOSUE MD Unavailable Unavailable ARNULFO, MAQBOOL JOSUE MD Unavailable Unavailable ARNULFO, MAQBOOL JOSUE MD Unavailable Unavailable ARNULFO, MAQBOOL JOSUE MD Unavailable Unavailable ARNULFO, MAQBOOL JOSUE MD Unavailable Unavailable ARNULFO, MAQBOOL JOSUE MD Unavailable Unavailable ARNULFO, MAQBOOL JOSUE MD Unavailable Unavailable ARNULFO, MAQBOOL JOSUE MD Unavailable Unavailable ARNULFO, MAQBOOL JOSUE MD Unavailable Unavailable ARNULFO, MAQBOOL JOSUE MD Unavailable Unavailable ARNULFO, MAQBOOL JOSUE MD Unavailable Unavailable ARNULFO, MAQBOOL JOSUE MD Unavailable Unavailable ARNULFO, MAQBOOL JOSUE MD Unavailable Unavailable ARNULFO, MAQBOOL JOSUE MD Unavailable Unavailable ARNULFO, MAQBOOL JOSUE MD Unavailable Unavailable ARNULFO, MAQBOOL JOSUE MD Unavailable Unavailable ARNULFO, MAQBOOL JOSUE MD Unavailable Unavailable ARNULFO, MAQBOOL JOSUE MD Unavailable Unavailable ARNULFO, MAQBOOL JOSUE MD Unavailable Unavailable ARNULFO, MAQBOOL JOSUE MD Unavailable Unavailable ARNULFO, MAQBOOL JOSUE MD Unavailable Unavailable ARNULFO, MAQBOOL JOSUE MD Unavailable Unavailable ARNULFO, MAQBOOL JOSUE MD Unavailable Unavailable ARNULFO, MAQBOOL JOSUE MD Unavailable Unavailable ARNULFO, MAQBOOL JOSUE MD Unavailable Unavailable ARNULFO, MAQBOOL JOSUE MD Unavailable Unavailable ARNULFO, MAQBOOL JOSUE MD Unavailable Unavailable ARNULFO, MAQBOOL JOSUE MD Unavailable Unavailable ARNULFO, MAQBOOL JOSUE MD Unavailable Unavailable ARNULFO, MAQBOOL JOSUE MD Unavailable Unavailable ARNULFO, MAQBOOL JOSUE MD Unavailable Unavailable ARNULFO, MAQBOOL JOSUE MD Unavailable Unavailable ARNULFO, MAQBOOL JOSUE MD Unavailable Unavailable ARNULFO, MAQBOOL JOSUE MD Unavailable Unavailable ARNULFO, MAQBOOL JOSUE MD Unavailable Unavailable ARNULFO, MAQBOOL JOSUE MD Unavailable Unavailable ARNULFO, MAQBOOL JOSUE MD Unavailable Unavailable ARNULFO, MAQBOOL JOSUE MD Unavailable Unavailable ARNULFO, MAQBOOL JOSUE MD Unavailable Unavailable ARNULFO, MAQBOOL JOSUE MD Unavailable Unavailable Servage, L Valerie LAP REGULATOR Unavailable Unavailable Servage, L Valerie LAP REGULATOR Unavailable Unavailable Servage, L Valerie LAP REGULATOR Unavailable Unavailable Servage, L Valerie LAP REGULATOR Unavailable Unavailable Servage, L Valerie LAP REGULATOR Unavailable Unavailable Servage, L Valerie LAP REGULATOR Unavailable Unavailable Servage, L Valerie LAP REGULATOR Unavailable Unavailable Servage, L Valerie LAP REGULATOR Unavailable Unavailable Servage, L Valerie LAP REGULATOR Unavailable Unavailable Servage, L Valerie LAP REGULATOR Unavailable Unavailable Servage, L Valerie LAP REGULATOR Unavailable Unavailable Servage, L Valerie LAP REGULATOR Unavailable Unavailable Servage, L Valerie LAP REGULATOR Unavailable Unavailable Servage, L Valerie LAP REGULATOR Unavailable Unavailable Servage, L Valerie LAP REGULATOR Unavailable Unavailable Servage, L Valerie LAP REGULATOR Unavailable Unavailable Servage, L Valerie LAP REGULATOR Unavailable Unavailable Servage, L Valerie LAP REGULATOR Unavailable Unavailable Servage, L Valerie LAP REGULATOR Unavailable Unavailable Servage, L Valerie LAP REGULATOR Unavailable Unavailable Servage, L Valerie LAP REGULATOR Unavailable Unavailable Servage, L Valerie LAP REGULATOR Unavailable Unavailable Servage, L Valerie LAP REGULATOR Unavailable Unavailable Servage, L Valerie LAP REGULATOR Unavailable Unavailable Servage, L Valerie LAP REGULATOR Unavailable Unavailable Servage, L Valerie LAP REGULATOR Unavailable Unavailable Servage, L Valerie LAP REGULATOR Unavailable Unavailable Servage, L Valerie LAP REGULATOR Unavailable Unavailable Servage, L Valerie LAP REGULATOR Unavailable Unavailable Servage, L Valerie LAP REGULATOR Unavailable Unavailable Servage, L Valerie LAP REGULATOR Unavailable Unavailable Servage, L Valerie LAP REGULATOR Unavailable Unavailable Servage, L Valerie LAP REGULATOR Unavailable Unavailable Servage, L Valerie LAP REGULATOR Unavailable Unavailable Servage, L Valerie LAP REGULATOR Unavailable Unavailable Servage, L Valerie LAP REGULATOR Unavailable Unavailable Servage, L Valerie LAP REGULATOR Unavailable Unavailable Servage, L Valerie LAP REGULATOR Unavailable Unavailable Servage, L Valerie LAP REGULATOR Unavailable Unavailable Servage, L Valerie LAP REGULATOR Unavailable Unavailable Servage, L Valerie LAP REGULATOR Unavailable Unavailable Servage, L Valerie LAP REGULATOR Unavailable Unavailable Servage, L Valerie LAP REGULATOR Unavailable Unavailable Servage, L Valerie LAP REGULATOR Unavailable Unavailable Servage, L Valerie LAP REGULATOR Unavailable Unavailable Servage, L Valerie LAP REGULATOR Unavailable Unavailable Servage, L Valerie LAP REGULATOR Unavailable Unavailable Servage, L Valerie LAP REGULATOR Unavailable Unavailable Servage, L Valerie LAP REGULATOR Unavailable Unavailable Servage, L Valerie LAP REGULATOR Unavailable Unavailable Servage, L Valerie LAP REGULATOR Unavailable Unavailable Servage, L Valerie LAP REGULATOR Unavailable Unavailable Servage, L Valerie LAP REGULATOR Unavailable Unavailable Servage, L Valerie LAP REGULATOR Unavailable Unavailable Servage, L Valerie LAP REGULATOR Unavailable Unavailable Servage, L Valerie LAP REGULATOR Unavailable Unavailable Re-disclosure Warning The records that you are about to access may contain information from federally-assisted alcohol or drug abuse programs. If such information is present, then the following federally mandated warning applies: This information has been disclosed to you from records protected by federal confidentiality rules (42 CFR part 2). The federal rules prohibit you from making any further disclosure of this information unless further disclosure is expressly permitted by the written consent of the person to whom it pertains or as otherwise permitted by 42 CFR part 2. A general authorization for the release of medical or other information is NOT sufficient for this purpose. The Federal rules restrict any use of the information to criminally investigate or prosecute any alcohol or drug abuse patient.The records that you are about to access may contain highly sensitive health information, the redisclosure of which is protected by Article 27-F of the [facility] Public Health law. If you continue you may have access to information: Regarding HIV / AIDS; Provided by facilities licensed or operated by the [facility] Office of Mental Health; or Provided by the [facility] Office for People With Developmental Disabilities. If such information is present, then the following [facility] mandated warning applies: This information has been disclosed to you from confidential records which are protected by state law. State law prohibits you from making any further disclosure of this information without the specific written consent of the person to whom it pertains, or as otherwise permitted by law. Any unauthorized further disclosure in violation of state law may result in a fine or [place] [facility] sentence or both. A general authorization for the release of medical or other information is NOT sufficient authorization for further disc losure. Allergies and Adverse Reactions Type Description Substance Reaction Status Data Source(s ) CLASS PCN (penicillin) PCN (penicillin) HIVES [facility] Drug allergy Penicillin (For Allergies Use Only) Drug allergy Hives Active eCW1 ([facility]) Family History Family Member Name Family Member Gender Family Member Status Date o f Status Description Data Source(s) Unknown Unknown Problem MEDENT ([facility]) Mother and father-Type unknown Unknown Male Problem MEDENT ([facility]) () Unknown Male Problem MED[facility] ([facility]) Unknown Male Problem [facility] ([facility] Encounters Encounter Providers Location Date Indications Data Source(s ) Office Visit Attender: GAYLA LEGGETT [facility] Office 11/25 01:30:00 PM EST MED[facility] ([facility] Office Visit Attender: Aston SAHU Physical Therapy 09:30:00 AM EST MEDENT ([facility] ) Outpatient Attender: MARLON NIELSEN MDConsultant: Valerie perez LAP REGULATOR 11/05/2020 08:51:00 AM EST - 11/05/2020 08:51:00 AM EST Outpatient Attender: MARLON NIELSEN MD Family Practice 11/05/2020 08:30:0 0 AM EST MEDENT ( Clinics) Outpatient [address] [facility] [place] [address] 10/31/2020 12:00:00 AM EST eCW1 (Critical access hospital) Office Visit Attender: GAYLA LEGGETT [facility] Office 04/2020 01:45:00 PM EST MED[facility] ([facility] Office Visit Attender: GAYLA LEGGETT [facility] Office 02/2020 02:45:00 PM EDT [facility] ([facility] [address] [facility] [place] [address] 07/26/2020 12:00:00 AM EDT eCW1 (Critical access hospital) Outpatient Attender: Valerie Pierson NPConsultant: Valerie srinivasan LAP REGULATOR 07/22/2020 11:14:00 AM EDT - 07/22/2020 12:14:00 PM EDT Outpatient Attender: JOSUE DUNCAN MDConsultant: Valerie velarde LAP REGULATOR 07/22/2020 11:13:00 AM EDT - 07/22/2020 12:13:00 PM EDT Outpatient Attender: JOSUE DUNCAN MD Medical [facility] 07/22 10:00:00 AM EDT MEDENT (Josue Duncan MD) [facility] [address] [facility] [place] [address] 06/20/2020 12:00:00 AM EDT eCW1 (Critical access hospital) Outpatient Attender: GAYLA LEGGETT [facility] Office 0801/2020 10:45:00 AM EDT MED[facility] ([facility] [address] [facility] [place] [address] 05/07/2020 12:00:00 AM EDT eCW1 ([facility]) Outpatient Attender: MARLON NIELSEN MD Family Practice 04/30/2020 01:30:0 0 PM EDT MEDENT ( Clinics) Outpatient Attender: MARLON NIELSEN MDConsultant: Valerie perez LAP REGULATOR 04/30/2020 12:42:00 PM EDT - 04/30/2020 12:42:00 PM EDT Outpatient Attender: GAYLA LEGGETT [facility] Office 02/23 10:45:00 AM EDT MED[facility] ([facility] [address], [facility] [address] 03/04/2020 12:00:00 AM EDT eCW1 ([facility]) [address] [place] [address] 02/25/2020 12:00:00 AM EDT eCW1 ([facility]) [address] [place] [address] 02/25/2020 12:00:00 AM EDT eCW1 ([facility]) [address] [place] [address] 02/23/2020 12:00:00 AM EDT eCW1 ([facility]) [address] [place] [address] 02/21/2020 12:00:00 AM EDT eCW1 ([facility]) [address] [place] [address] 02/18/2020 12:00:00 AM EDT eCW1 ([facility]) [address] [place] [address] 02/16/2020 12:00:00 AM EDT [facility] [address] [address] 02/15/2020 12:00:00 AM EDT [facility]CW1 [facility]) Outpatient Attender: Aston SAHU Physical Therapy 03:45:00 PM EDT MEDENT ([facility]) Outpatient Attender: JUNITO CROOKS SR 02/05/2020 10:54:00 AM EDT [facility] Outpatient Attender: MARLON NIELSEN MDConsultant: Valerie perez NP 01/30/2020 11:26:00 AM EDT - 01/30/2020 11:26:00 AM EDT [address] [address] 01/26/2020 12:00:00 AM EDT [facility]CW1 [facility]) Outpatient Attender: GAYLA LEGGETT [facility] Office 02/2020 09:45:00 AM EST MEDENT ([facility] [address] [address] 12/18/2019 12:00:00 AM EST [facility]CW1 ([facility]) [address] [address] 12/11/2019 12:00:00 AM EST eCW1 ([facility]) [address] [place] [address] 11/22/2019 12:00:00 AM EST [facility]CW1 ([facility]) [address] [place] [address] 11/08/2019 12:00:00 AM EST eCW1 ([facility]) Outpatient Attender: Aston SAHU Physical Therapy 01:45:00 PM EST MEDENT ([facility]) [facility] [address] [facility] [place] [address] 10/26/2019 12:00:00 AM EST eCW1 (Critical access hospital) Emergency Attender: URIEL GAMING PAReferrer : Valerie Pierson NP EMERGENCY ROOM-ER 11/17/2018 06:32:00 PM EST - 11/17/2018 08:24:00 PM [facility] Medications Medication Brand Name Start Date Product Form Dose Route Admi nistrative Instructions Pharmacy Instructions Status Indications Reaction Description Data Source(s) 800 mg 11/26/2020 12:00:00 AM EST tablet 90 TAKE 1 TABLET BY MOUTH THREE TIMES A DAY NEEDED TAKE 1 TABLET BY MOUTH THREE TIMES A DAY NEEDED [facility] atorvastatin 10 MG Oral Tablet ATORVASTATIN CALCIUM 10/21/2020 1 2:00:00 AM EST tablet 30 TAKE 1 TABLET BY MOUTH ONCE A DAY TAKE 1 TABLET BY MOUTH ONCE A DAY SOLD: 11/19/2020 [facility] atorvastatin 10 MG Oral Tablet ATORVASTATIN CALCIUM 10/21/2020 1 2:00:00 AM EST tablet 30 TAKE 1 TABLET BY MOUTH ONCE A DAY TAKE 1 TABLET BY MOUTH ONCE A DAY SOLD: 10/22/2020 [facility] 800 mg 09/28/2020 12:00:00 AM EST tablet 90 TAKE 1 TABLET BY MOUTH THREE TIMES A DAY NEEDED TAKE 1 TABLET BY MOUTH THREE TIMES A DAY NEEDED ALMA[facility] 800 mg 09/28/2020 12:00:00 AM EST tablet 90 TAKE 1 TABLET BY MOUTH THREE TIMES A DAY NEEDED TAKE 1 TABLET BY MOUTH THREE TIMES A DAY NEEDED ALMAZ [facility] 12 % 09/17/2020 12:00:00 AM EST cream 140 APPLY TO FEET DAILY APPLY TO FEET DAILY SOLD: 11/19/2020 [facility] 12 % 09/17/2020 12:00:00 AM EST cream 140 APPLY TO FEET DAILY APPLY TO FEET DAILY SOLD: 09/17/2020 [facility] 12 % 09/17/2020 12:00:00 AM EST cream 140 APPLY TO FEET DAILY APPLY TO FEET DAILY SOLD: 10/22/2020 [facility] 8.6 mg 09/16/2020 12:00:00 AM EST tablet 60 TAKE 1 TO 2 TABLETS BY MOUTH BEFORE BEDTIME NEEDED TAKE 1 TO 2 TABLETS BY MOUTH BEFORE BEDTIME NEEDED SOLD: 11/12/2020 [facility] 8.6 mg 09/16/2020 12:00:00 AM EST tablet 60 TAKE 1 TO 2 TABLETS BY MOUTH BEFORE BEDTIME NEEDED TAKE 1 TO 2 TABLETS BY MOUTH BEFORE BEDTIME NEEDED SOLD: 10/15/2020 [facility] 100 mg 09/16/2020 12:00:00 AM EST capsule 120 TAKE TWO CAPSULES BY MOUTH TWICE A DAY TAKE TWO CAPSULES BY MOUTH TWICE A DAY SOLD: 09/17/2020 [facility] 100 mg 09/16/2020 12:00:00 AM EST capsule 120 TAKE TWO CAPSULES BY MOUTH TWICE A DAY TAKE TWO CAPSULES BY MOUTH TWICE A DAY SOLD: 10/15/2020 [facility] 8.6 mg 09/16/2020 12:00:00 AM EST tablet 60 TAKE 1 TO 2 TABLETS BY MOUTH BEFORE BEDTIME NEEDED TAKE 1 TO 2 TABLETS BY MOUTH BEFORE BEDTIME NEEDED SOLD: 09/17/2020 [facility] 100 mg 09/16/2020 12:00:00 AM EST capsule 120 TAKE TWO CAPSULES BY MOUTH TWICE A DAY TAKE TWO CAPSULES BY MOUTH TWICE A DAY SOLD: 11/12/2020 [facility] 81 mg 09/06/2020 12:00:00 AM EST tablet,delayed release (DR/EC) 30 TAKE 1 TABLET BY MOUTH ONCE A DAY TAKE 1 TABLET BY MOUTH ONCE A DAY SOLD: 09/08/2020 [facility] 81 mg 09/06/2020 12:00:00 AM EST tablet,delayed release (DR/EC) 30 TAKE 1 TABLET BY MOUTH ONCE A DAY TAKE 1 TABLET BY MOUTH ONCE A DAY SOLD: 12/01/2020 [facility] 81 mg 09/06/2020 12:00:00 AM EST tablet,delayed release (DR/EC) 30 TAKE 1 TABLET BY MOUTH ONCE A DAY TAKE 1 TABLET BY MOUTH ONCE A DAY SOLD: 11/03/2020 [facility] 81 mg 09/06/2020 12:00:00 AM EST tablet,delayed release (DR/EC) 30 TAKE 1 TABLET BY MOUTH ONCE A DAY TAKE 1 TABLET BY MOUTH ONCE A DAY SOLD: 10/06/2020 [facility] 5 mg 08/31/2020 12:00:00 AM EST tablet 30 TAKE ONE TABLET BY MOUTH EVERY DAY TAKE ONE TABLET BY MOUTH EVERY DAY SOLD: 10/01/2020 [facility] 5 mg 08/31/2020 12:00:00 AM EST tablet 30 TAKE ONE TABLET BY MOUTH EVERY DAY TAKE ONE TABLET BY MOUTH EVERY DAY SOLD: 11/26/2020 [facility] 5 mg 08/31/2020 12:00:00 AM EST tablet 30 TAKE ONE TABLET BY MOUTH EVERY DAY TAKE ONE TABLET BY MOUTH EVERY DAY SOLD: 08/31/2020 [facility] 5 mg 08/31/2020 12:00:00 AM EST tablet 30 TAKE ONE TABLET BY MOUTH EVERY DAY TAKE ONE TABLET BY MOUTH EVERY DAY SOLD: 10/29/2020 [facility] 0.4 mg 08/12/2020 12:00:00 AM EDT capsule 30 TAKE 1 CAPSULE BY MOUTH ONCE A DAY 30 MINUTES AFTER THE SAME MEAL TAKE 1 CAPSULE BY MOUTH ONCE A DAY 30 SD NUTES AFTER THE SAME MEAL SOLD: 09/12/2020 [facility] 0.4 mg 08/12/2020 12:00:00 AM EDT capsule 30 TAKE 1 CAPSULE BY MOUTH ONCE A DAY 30 MINUTES AFTER THE SAME MEAL TAKE 1 CAPSULE BY MOUTH ONCE A DAY 30 SD NUTES AFTER THE SAME MEAL SOLD: 10/10/2020 [facility] 0.4 mg 08/12/2020 12:00:00 AM EDT capsule 30 TAKE 1 CAPSULE BY MOUTH ONCE A DAY 30 MINUTES AFTER THE SAME MEAL TAKE 1 CAPSULE BY MOUTH ONCE A DAY 30 SD NUTES AFTER THE SAME MEAL SOLD: 08/13/2020 [facility] 0.4 mg 08/12/2020 12:00:00 AM EDT capsule 30 TAKE 1 CAPSULE BY MOUTH ONCE A DAY 30 MINUTES AFTER THE SAME MEAL TAKE 1 CAPSULE BY MOUTH ONCE A DAY 30 SD NUTES AFTER THE SAME MEAL SOLD: 11/07/2020 [facility] 0.4 mg 08/12/2020 12:00:00 AM EDT capsule 30 TAKE 1 CAPSULE BY MOUTH ONCE A DAY 30 MINUTES AFTER THE SAME MEAL TAKE 1 CAPSULE BY MOUTH ONCE A DAY 30 SD NUTES AFTER THE SAME MEAL SOLD: 12/05/2020 [facility] 800 mg 08/01/2020 12:00:00 AM EDT tablet 90 TAKE 1 TABLET BY MOUTH THREE TIMES A DAY NEEDED TAKE 1 TABLET BY MOUTH THREE TIMES A DAY NEEDED [facility]MA[facility] 800 mg 08/01/2020 12:00:00 AM EDT tablet 90 TAKE 1 TABLET BY MOUTH THREE TIMES A DAY NEEDED TAKE 1 TABLET BY MOUTH THREE TIMES A DAY NEEDED ALMAZ [facility] 300 mg 07/29/2020 12:00:00 AM EDT capsule 90 TAKE 1 CAPSULE BY MOUTH THREE TIMES A DAY TAKE 1 CAPSULE BY MOUTH THREE TIMES A DAY SOLD: 07/29/2020 [facility] 15 mg 07/15/2020 12:00:00 AM EDT tablet extended release 24hr 30 TAKE ONE TABLET BY MOUTH EVERY DAY TAKE ONE TABLET BY MOUTH EVERY DAY SOLD: 07/16/2020 [facility] 15 mg 07/15/2020 12:00:00 AM EDT tablet extended release 24hr 30 TAKE ONE TABLET BY MOUTH EVERY DAY TAKE ONE TABLET BY MOUTH EVERY DAY SOLD: 09/12/2020 [facility] 15 mg 07/15/2020 12:00:00 AM EDT tablet extended release 24hr 30 TAKE ONE TABLET BY MOUTH EVERY DAY TAKE ONE TABLET BY MOUTH EVERY DAY SOLD: 08/13/2020 [facility] 15 mg 07/15/2020 12:00:00 AM EDT tablet extended release 24hr 30 TAKE ONE TABLET BY MOUTH EVERY DAY TAKE ONE TABLET BY MOUTH EVERY DAY SOLD: 10/10/2020 [facility] 15 mg 07/15/2020 12:00:00 AM EDT tablet extended release 24hr 30 TAKE ONE TABLET BY MOUTH EVERY DAY TAKE ONE TABLET BY MOUTH EVERY DAY SOLD: 12/05/2020 [facility] 15 mg 07/15/2020 12:00:00 AM EDT tablet extended release 24hr 30 TAKE ONE TABLET BY MOUTH EVERY DAY TAKE ONE TABLET BY MOUTH EVERY DAY SOLD: 11/07/2020 [facility] 8.6-50 mg 06/20/2020 12:00:00 AM EDT tablet 90 TAKE 1 TABLET BY MOUTH EVERY A.M. & 2 TABLETS IN THE P.M. NEEDED CONSTIPATION TAKE 1 TABLET BY MOUTH EVERY A.M. & 2 TABLETS IN THE P.M. NEEDED CONSTIPATION SOLD: 09/22/2020 [facility] 8.6-50 mg 06/20/2020 12:00:00 AM EDT tablet 90 TAKE 1 TABLET BY MOUTH EVERY A.M. & 2 TABLETS IN THE P.M. NEEDED CONSTIPATION TAKE 1 TABLET BY MOUTH EVERY A.M. & 2 TABLETS IN THE P.M. NEEDED CONSTIPATION SOLD: 07/20/2020 [facility] 8.6-50 mg 06/20/2020 12:00:00 AM EDT tablet 90 TAKE 1 TABLET BY MOUTH EVERY A.M. & 2 TABLETS IN THE P.M. NEEDED CONSTIPATION TAKE 1 TABLET BY MOUTH EVERY A.M. & 2 TABLETS IN THE P.M. NEEDED CONSTIPATION SOLD: 06/20/2020 [facility] 8.6-50 mg 06/20/2020 12:00:00 AM EDT tablet 90 TAKE 1 TABLET BY MOUTH EVERY A.M. & 2 TABLETS IN THE P.M. NEEDED CONSTIPATION TAKE 1 TABLET BY MOUTH EVERY A.M. & 2 TABLETS IN THE P.M. NEEDED CONSTIPATION SOLD: 11/26/2020 [facility] 8.6-50 mg 06/20/2020 12:00:00 AM EDT tablet 90 TAKE 1 TABLET BY MOUTH EVERY A.M. & 2 TABLETS IN THE P.M. NEEDED CONSTIPATION TAKE 1 TABLET BY MOUTH EVERY A.M. & 2 TABLETS IN THE P.M. NEEDED CONSTIPATION SOLD: 08/25/2020 [facility] 8.6-50 mg 06/20/2020 12:00:00 AM EDT tablet 90 TAKE 1 TABLET BY MOUTH EVERY A.M. & 2 TABLETS IN THE P.M. NEEDED CONSTIPATION TAKE 1 TABLET BY MOUTH EVERY A.M. & 2 TABLETS IN THE P.M. NEEDED CONSTIPATION SOLD: 10/22/2020 [facility] 800 mg 06/05/2020 12:00:00 AM EDT tablet 90 TAKE 1 TABLET BY MOUTH THREE TIMES A DAY NEEDED TAKE 1 TABLET BY MOUTH THREE TIMES A DAY NEEDED [facility]MA[facility] 800 mg 06/05/2020 12:00:00 AM EDT tablet 90 TAKE 1 TABLET BY MOUTH THREE TIMES A DAY NEEDED TAKE 1 TABLET BY MOUTH THREE TIMES A DAY NEEDED ALMA[facility] 12 % 05/28/2020 12:00:00 AM EDT cream 140 APPLY TO FEET DAILY APPLY TO FEET DAILY SOLD: 06/25/2020 [facility] ammonium lactate 120 MG/ML Topical Cream Ammonium Lactate 05/28/2020 12:00:00 AM EDT active [facility] ([facility] 12 % 05/28/2020 12:00:00 AM EDT cream 140 APPLY TO FEET DAILY APPLY TO FEET DAILY SOLD: 07/23/2020 [facility] 12 % 05/28/2020 12:00:00 AM EDT cream 140 APPLY TO FEET DAILY APPLY TO FEET DAILY SOLD: 08/20/2020 [facility] 12 % 05/28/2020 12:00:00 AM EDT cream 140 APPLY TO FEET DAILY APPLY TO FEET DAILY SOLD: 05/28/2020 [facility] atorvastatin 10 MG Oral Tablet ATORVASTATIN CALCIUM 05/02/2020 1 2:00:00 AM EDT tablet 30 TAKE ONE TABLET BY MOUTH EVERY D AY TAKE ONE TABLET BY MOUTH EVERY DAY SOLD: 06/27/2020 [facility] atorvastatin 10 MG Oral Tablet ATORVASTATIN CALCIUM 05/02/2020 1 2:00:00 AM EDT tablet 30 TAKE ONE TABLET BY MOUTH EVERY D AY TAKE ONE TABLET BY MOUTH EVERY DAY SOLD: 09/22/2020 [facility] 10 mg 05/02/2020 12:00:00 AM EDT tablet 30 TAKE ONE TABLET BY MOUTH EVERY DAY TAKE ONE TABLET BY MOUTH EVERY DAY SOLD: 05/02/2020 [facility] 10 mg 05/02/2020 12:00:00 AM EDT tablet 30 TAKE ONE TABLET BY MOUTH EVERY DAY TAKE ONE TABLET BY MOUTH EVERY DAY SOLD: 05/30/2020 [facility] atorvastatin 10 MG Oral Tablet ATORVASTATIN CALCIUM 05/02/2020 1 2:00:00 AM EDT tablet 30 TAKE ONE TABLET BY MOUTH EVERY D AY TAKE ONE TABLET BY MOUTH EVERY DAY SOLD: 07/25/2020 [facility] atorvastatin 10 MG Oral Tablet ATORVASTATIN CALCIUM 05/02/2020 1 2:00:00 AM EDT tablet 30 TAKE ONE TABLET BY MOUTH EVERY D AY TAKE ONE TABLET BY MOUTH EVERY DAY SOLD: 08/25/2020 [facility] 500 mg 05/01/2020 12:00:00 AM EDT tablet 120 TAKE ONE TABLET BY MOUTH EVERY 6 HOURS NEEDED TAKE ONE TABLET BY MOUTH EVERY 6 HOURS NEEDED SOLD: 06/27/2020 [facility] 500 mg 05/01/2020 12:00:00 AM EDT tablet 120 TAKE ONE TABLET BY MOUTH EVERY 6 HOURS NEEDED TAKE ONE TABLET BY MOUTH EVERY 6 HOURS NEEDED SOLD: 05/02/2020 [facility] 500 mg 05/01/2020 12:00:00 AM EDT tablet 120 TAKE ONE TABLET BY MOUTH EVERY 6 HOURS NEEDED TAKE ONE TABLET BY MOUTH EVERY 6 HOURS NEEDED SOLD: 05/30/2020 [facility] 500 mg 05/01/2020 12:00:00 AM EDT tablet 120 TAKE ONE TABLET BY MOUTH EVERY 6 HOURS NEEDED TAKE ONE TABLET BY MOUTH EVERY 6 HOURS NEEDED SOLD: 07/25/2020 [facility] 100 mg 04/30/2020 12:00:00 AM EDT capsule 120 TAKE TWO CAPSULES BY MOUTH TWICE A DAY TAKE TWO CAPSULES BY MOUTH TWICE A DAY SOLD: 06/25/2020 [facility] 100 mg 04/30/2020 12:00:00 AM EDT capsule 120 TAKE TWO CAPSULES BY MOUTH TWICE A DAY TAKE TWO CAPSULES BY MOUTH TWICE A DAY SOLD: 07/23/2020 [facility] 100 mg 04/30/2020 12:00:00 AM EDT capsule 120 TAKE TWO CAPSULES BY MOUTH TWICE A DAY TAKE TWO CAPSULES BY MOUTH TWICE A DAY SOLD: 05/28/2020 [facility] 100 mg 04/30/2020 12:00:00 AM EDT capsule 120 TAKE TWO CAPSULES BY MOUTH TWICE A DAY TAKE TWO CAPSULES BY MOUTH TWICE A DAY SOLD: 08/20/2020 [facility] 100 mg 04/30/2020 12:00:00 AM EDT capsule 120 TAKE TWO CAPSULES BY MOUTH TWICE A DAY TAKE TWO CAPSULES BY MOUTH TWICE A DAY SOLD: 04/30/2020 [facility] 8.6 mg 04/24/2020 12:00:00 AM EDT tablet 60 TAKE 1-2 TABLETS BY MOUTH BEFORE BEDTIME NEEDED TAKE 1-2 TABLETS BY MOUTH BEFORE BEDTIME NEEDED [facility] 8.6 mg 04/24/2020 12:00:00 AM EDT tablet 60 TAKE 1-2 TABLETS BY MOUTH BEFORE BEDTIME NEEDED TAKE 1-2 TABLETS BY MOUTH BEFORE BEDTIME NEEDED ALMAZ [facility] 8.6 mg 04/24/2020 12:00:00 AM EDT tablet 60 TAKE 1-2 TABLETS BY MOUTH BEFORE BEDTIME NEEDED TAKE 1-2 TABLETS BY MOUTH BEFORE BEDTIME NEEDED ALMAZ [facility] 8.6 mg 04/24/2020 12:00:00 AM EDT tablet 60 TAKE 1-2 TABLETS BY MOUTH BEFORE BEDTIME NEEDED TAKE 1-2 TABLETS BY MOUTH BEFORE BEDTIME NEEDED ALMAZ [facility] 8.6 mg 04/24/2020 12:00:00 AM EDT tablet 60 TAKE 1-2 TABLETS BY MOUTH BEFORE BEDTIME NEEDED TAKE 1-2 TABLETS BY MOUTH BEFORE BEDTIME NEEDED ALMAZ [facility] 81 mg 04/15/2020 12:00:00 AM EDT tablet,delayed release (DR/EC) 30 TAKE ONE TABLET BY MOUTH EVERY DAY TAKE ONE TABLET BY MOUTH EVERY DAY SOLD: 04/16/2020 [facility] 81 mg 04/15/2020 12:00:00 AM EDT tablet,delayed release (DR/EC) 30 TAKE ONE TABLET BY MOUTH EVERY DAY TAKE ONE TABLET BY MOUTH EVERY DAY SOLD: 06/16/2020 [facility] 81 mg 04/15/2020 12:00:00 AM EDT tablet,delayed release (DR/EC) 30 TAKE ONE TABLET BY MOUTH EVERY DAY TAKE ONE TABLET BY MOUTH EVERY DAY SOLD: 08/10/2020 [facility] 81 mg 04/15/2020 12:00:00 AM EDT tablet,delayed release (DR/EC) 30 TAKE ONE TABLET BY MOUTH EVERY DAY TAKE ONE TABLET BY MOUTH EVERY DAY SOLD: 05/19/2020 [facility] 81 mg 04/15/2020 12:00:00 AM EDT tablet,delayed release (DR/EC) 30 TAKE ONE TABLET BY MOUTH EVERY DAY TAKE ONE TABLET BY MOUTH EVERY DAY SOLD: 07/14/2020 [facility] 10 mg 04/11/2020 12:00:00 AM EDT tablet 30 TAKE ONE TABLET BY MOUTH EVERY DAY TAKE ONE TABLET BY MOUTH EVERY DAY SOLD: 05/12/2020 [facility] 10 mg 04/11/2020 12:00:00 AM EDT tablet 30 TAKE ONE TABLET BY MOUTH EVERY DAY TAKE ONE TABLET BY MOUTH EVERY DAY SOLD: 04/12/2020 [facility] 800 mg 04/10/2020 12:00:00 AM EDT tablet 90 TAKE 1 TABLET BY MOUTH THREE TIMES A DAY NEEDED TAKE 1 TABLET BY MOUTH THREE TIMES A DAY NEEDED ALMAZ [facility] 800 mg 04/10/2020 12:00:00 AM EDT tablet 90 TAKE 1 TABLET BY MOUTH THREE TIMES A DAY NEEDED TAKE 1 TABLET BY MOUTH THREE TIMES A DAY NEEDED ALMAZ [facility] 5 mg 04/07/2020 12:00:00 AM EDT tablet 30 TAKE ONE TABLET BY MOUTH EVERY DAY TAKE ONE TABLET BY MOUTH EVERY DAY SOLD: 08/04/2020 [facility] 5 mg 04/07/2020 12:00:00 AM EDT tablet 30 TAKE ONE TABLET BY MOUTH EVERY DAY TAKE ONE TABLET BY MOUTH EVERY DAY SOLD: 06/06/2020 [facility] 5 mg 04/07/2020 12:00:00 AM EDT tablet 30 TAKE ONE TABLET BY MOUTH EVERY DAY TAKE ONE TABLET BY MOUTH EVERY DAY SOLD: 04/07/2020 [facility] 5 mg 04/07/2020 12:00:00 AM EDT tablet 30 TAKE ONE TABLET BY MOUTH EVERY DAY TAKE ONE TABLET BY MOUTH EVERY DAY SOLD: 07/04/2020 [facility] 5 mg 04/07/2020 12:00:00 AM EDT tablet 30 TAKE ONE TABLET BY MOUTH EVERY DAY TAKE ONE TABLET BY MOUTH EVERY DAY SOLD: 05/09/2020 [facility] 0.4 mg 03/20/2020 12:00:00 AM EDT capsule 30 TAKE 1 CAPSULE BY MOUTH DAILY, 30 MINUTES AFTER SAME MEAL EACH DAY TAKE 1 CAPSULE BY MOUTH DAILY, 30 MINUTE S AFTER SAME MEAL EACH DAY SOLD: 04/17/2020 [facility] 0.4 mg 03/20/2020 12:00:00 AM EDT capsule 30 TAKE 1 CAPSULE BY MOUTH DAILY, 30 MINUTES AFTER SAME MEAL EACH DAY TAKE 1 CAPSULE BY MOUTH DAILY, 30 MINUTE S AFTER SAME MEAL EACH DAY SOLD: 07/14/2020 [facility] 0.4 mg 03/20/2020 12:00:00 AM EDT capsule 30 TAKE 1 CAPSULE BY MOUTH DAILY, 30 MINUTES AFTER SAME MEAL EACH DAY TAKE 1 CAPSULE BY MOUTH DAILY, 30 MINUTE S AFTER SAME MEAL EACH DAY SOLD: 03/21/2020 [facility] 0.4 mg 03/20/2020 12:00:00 AM EDT capsule 30 TAKE 1 CAPSULE BY MOUTH DAILY, 30 MINUTES AFTER SAME MEAL EACH DAY TAKE 1 CAPSULE BY MOUTH DAILY, 30 MINUTE S AFTER SAME MEAL EACH DAY SOLD: 06/16/2020 [facility] 0.4 mg 03/20/2020 12:00:00 AM EDT capsule 30 TAKE 1 CAPSULE BY MOUTH DAILY, 30 MINUTES AFTER SAME MEAL EACH DAY TAKE 1 CAPSULE BY MOUTH DAILY, 30 MINUTE S AFTER SAME MEAL EACH DAY SOLD: 05/19/2020 [facility] 100 mg 02/25/2020 12:00:00 AM EDT tablet 10 TAKE ONE TABLET BY MOUTH EVERY 12 HOURS FOR 5 DAYS TAKE ONE TABLET BY MOUTH EVERY 12 HOURS FOR 5 DAYS [facility] doxycycline hyclate 100 MG Oral Tablet Doxycycline Hyc late 100 MG Doxycycline Hyclate 100 MG 02/21/2020 12:00:00 AM EDT 1.0 {tablet} active Doxycycline Hyclate 100 MG eCW1 ([facility]) doxycycline hyclate 100 MG Oral Tablet Doxycycline Hyc late 100 MG Doxycycline Hyclate 100 MG 02/21/2020 12:00:00 AM EDT 1.0 {tablet} active Doxycycline Hyclate 100 MG eCW1 ([facility]) doxycycline hyclate 100 MG Oral Tablet Doxycycline Hyc late 100 MG Doxycycline Hyclate 100 MG 02/21/2020 12:00:00 AM EDT active 1 tablet eCW1 ([facility]) doxycycline hyclate 100 MG Oral Tablet Doxycycline Hyc late 100 MG Doxycycline Hyclate 100 MG 02/21/2020 12:00:00 AM EDT active 1 tablet eCW1 ([facility]) doxycycline hyclate 100 MG Oral Tablet Doxycycline Hyc late 100 MG Doxycycline Hyclate 100 MG 02/21/2020 12:00:00 AM EDT 1.0 {tablet} active Doxycycline Hyclate 100 MG eCW1 ([facility]) 100 mg 02/21/2020 12:00:00 AM EDT tablet 10 TAKE ONE TABLET BY MOUTH EVERY 12 HOURS FOR 5 DAYS TAKE ONE TABLET BY MOUTH EVERY 12 HOURS FOR 5 DAYS [facility] doxycycline hyclate 100 MG Oral Tablet Doxycycline Hyc late 100 MG Doxycycline Hyclate 100 MG 02/21/2020 12:00:00 AM EDT 1.0 {tablet} active Doxycycline Hyclate 100 MG eCW1 ([facility]) 500 mg 02/19/2020 12:00:00 AM EDT capsule 120 TAKE ONE CAPSULE BY MOUTH EVERY 6 HOURS NEEDED TAKE ONE CAPSULE BY MOUTH EVERY 6 HOURS NEEDED SOLD : 02/20/2020 [facility] 500 mg 02/19/2020 12:00:00 AM EDT capsule 120 TAKE ONE CAPSULE BY MOUTH EVERY 6 HOURS NEEDED TAKE ONE CAPSULE BY MOUTH EVERY 6 HOURS NEEDED SOLD : 03/19/2020 [facility] 20 mg 02/16/2020 12:00:00 AM EDT tablet 30 TAKE 1 TABLET BY MOUTH ONCE A DAY AT BEDTIME NEEDED TAKE 1 TABLET BY MOUTH ONCE A DAY AT BEDTIME NEEDED SOLD: 02/16/2020 [facility] Famotidine 20 MG Oral Tablet Famotidine 20 MG 02/16/2020 12:00:00 A M EDT 1.0 {tablet_at_bedtime_as_needed} active Fa motidine 20 MG eCW1 ([facility]) 10 mg 02/16/2020 12:00:00 AM EDT tablet 30 TAKE ONE TABLET BY MOUTH EVERY DAY TAKE ONE TABLET BY MOUTH EVERY DAY SOLD: 03/14/2020 [facility] 20 mg 02/16/2020 12:00:00 AM EDT tablet 30 TAKE 1 TABLET BY MOUTH ONCE A DAY AT BEDTIME NEEDED TAKE 1 TABLET BY MOUTH ONCE A DAY AT BEDTIME NEEDED SOLD: 04/26/2020 [facility] 10 mg 02/16/2020 12:00:00 AM EDT tablet 30 TAKE ONE TABLET BY MOUTH EVERY DAY TAKE ONE TABLET BY MOUTH EVERY DAY SOLD: 02/16/2020 [facility] Famotidine 20 MG Oral Tablet Famotidine 20 MG 02/16/2020 12:00:00 A M EDT 1.0 {tablet_at_bedtime_as_needed} active Fa motidine 20 MG eCW1 ([facility]) 20 mg 02/16/2020 12:00:00 AM EDT tablet 30 TAKE 1 TABLET BY MOUTH ONCE A DAY AT BEDTIME NEEDED TAKE 1 TABLET BY MOUTH ONCE A DAY AT BEDTIME NEEDED SOLD: 03/14/2020 [facility] 800 mg 02/14/2020 12:00:00 AM EDT tablet 90 TAKE 1 TABLET BY MOUTH THREE TIMES A DAY NEEDED TAKE 1 TABLET BY MOUTH THREE TIMES A DAY NEEDED [facility] 800 mg 02/14/2020 12:00:00 AM EDT tablet 90 TAKE 1 TABLET BY MOUTH THREE TIMES A DAY NEEDED TAKE 1 TABLET BY MOUTH THREE TIMES A DAY NEEDED [facility] 15 mg 01/26/2020 12:00:00 AM EDT tablet extended release 24hr 30 TAKE ONE TABLET BY MOUTH EVERY DAY TAKE ONE TABLET BY MOUTH EVERY DAY SOLD: 05/19/2020 [facility] 15 mg 01/26/2020 12:00:00 AM EDT tablet extended release 24hr 30 TAKE ONE TABLET BY MOUTH EVERY DAY TAKE ONE TABLET BY MOUTH EVERY DAY SOLD: 04/20/2020 [facility] 15 mg 01/26/2020 12:00:00 AM EDT tablet extended release 24hr 30 TAKE ONE TABLET BY MOUTH EVERY DAY TAKE ONE TABLET BY MOUTH EVERY DAY SOLD: 03/23/2020 [facility] 15 mg 01/26/2020 12:00:00 AM EDT tablet extended release 24hr 30 TAKE ONE TABLET BY MOUTH EVERY DAY TAKE ONE TABLET BY MOUTH EVERY DAY SOLD: 01/28/2020 [facility] 15 mg 01/26/2020 12:00:00 AM EDT tablet extended release 24hr 30 TAKE ONE TABLET BY MOUTH EVERY DAY TAKE ONE TABLET BY MOUTH EVERY DAY SOLD: 06/16/2020 [facility] 15 mg 01/26/2020 12:00:00 AM EDT tablet extended release 24hr 30 TAKE ONE TABLET BY MOUTH EVERY DAY TAKE ONE TABLET BY MOUTH EVERY DAY SOLD: 02/25/2020 [facility] 800 mg 12/20/2019 12:00:00 AM EST tablet 90 TAKE 1 TABLET BY MOUTH THREE TIMES A DAY NEEDED TAKE 1 TABLET BY MOUTH THREE TIMES A DAY NEEDED [facility] 800 mg 12/20/2019 12:00:00 AM EST tablet 90 TAKE 1 TABLET BY MOUTH THREE TIMES A DAY NEEDED TAKE 1 TABLET BY MOUTH THREE TIMES A DAY NEEDED [facility] Docusate Sodium 100 MG Oral Capsule DOCUSATE SODIUM 12/11/2019 1 2:00:00 AM EST capsule 120 TAKE 2 CAPSULES BY MOUTH TWO FRANSISCO ES A DAY TAKE 2 CAPSULES BY MOUTH TWO TIMES A DAY SOLD: 04/02/2020 [facility] Docusate Sodium 100 MG Oral Capsule DOCUSATE SODIUM 12/11/2019 1 2:00:00 AM EST capsule 120 TAKE 2 CAPSULES BY MOUTH TWO FRANSISCO ES A DAY TAKE 2 CAPSULES BY MOUTH TWO TIMES A DAY SOLD: 02/06/2020 [facility] Docusate Sodium 100 MG Oral Capsule DOCUSATE SODIUM 12/11/2019 1 2:00:00 AM EST capsule 120 TAKE 2 CAPSULES BY MOUTH TWO FRANSISCO ES A DAY TAKE 2 CAPSULES BY MOUTH TWO TIMES A DAY SOLD: 12/12/2019 [facility] Docusate Sodium 100 MG Oral Capsule DOCUSATE SODIUM 12/11/2019 1 2:00:00 AM EST capsule 120 TAKE 2 CAPSULES BY MOUTH TWO FRANSISCO ES A DAY TAKE 2 CAPSULES BY MOUTH TWO TIMES A DAY SOLD: 01/09/2020 [facility] Docusate Sodium 100 MG Oral Capsule DOCUSATE SODIUM 12/11/2019 1 2:00:00 AM EST capsule 120 TAKE 2 CAPSULES BY MOUTH TWO FRANSISCO ES A DAY TAKE 2 CAPSULES BY MOUTH TWO TIMES A DAY SOLD: 03/05/2020 [facility] 8.6 mg 12/05/2019 12:00:00 AM EST tablet 60 TAKE 1-2 TABLETS BY MOUTH AT BEDTIME NEEDED TAKE 1-2 TABLETS BY MOUTH AT BEDTIME NEEDED SOLD: 01/02/2020 [facility] 8.6 mg 12/05/2019 12:00:00 AM EST tablet 60 TAKE 1-2 TABLETS BY MOUTH AT BEDTIME NEEDED TAKE 1-2 TABLETS BY MOUTH AT BEDTIME NEEDED SOLD: 02/01/2020 [facility] 8.6 mg 12/05/2019 12:00:00 AM EST tablet 60 TAKE 1-2 TABLETS BY MOUTH AT BEDTIME NEEDED TAKE 1-2 TABLETS BY MOUTH AT BEDTIME NEEDED SOLD: 02/29/2020 [facility] 8.6 mg 12/05/2019 12:00:00 AM EST tablet 60 TAKE 1-2 TABLETS BY MOUTH AT BEDTIME NEEDED TAKE 1-2 TABLETS BY MOUTH AT BEDTIME NEEDED SOLD: 12/05/2019 [facility] 8.6 mg 12/05/2019 12:00:00 AM EST tablet 60 TAKE 1-2 TABLETS BY MOUTH AT BEDTIME NEEDED TAKE 1-2 TABLETS BY MOUTH AT BEDTIME NEEDED SOLD: 03/28/2020 [facility] 81 mg 11/29/2019 12:00:00 AM EST tablet,delayed release (DR/EC) 30 TAKE ONE TABLET BY MOUTH EVERY DAY TAKE ONE TABLET BY MOUTH EVERY DAY SOLD: 03/19/2020 [facility] 81 mg 11/29/2019 12:00:00 AM EST tablet,delayed release (DR/EC) 30 TAKE ONE TABLET BY MOUTH EVERY DAY TAKE ONE TABLET BY MOUTH EVERY DAY SOLD: 02/22/2020 [facility] 81 mg 11/29/2019 12:00:00 AM EST tablet,delayed release (DR/EC) 30 TAKE ONE TABLET BY MOUTH EVERY DAY TAKE ONE TABLET BY MOUTH EVERY DAY SOLD: 11/30/2019 [facility] 81 mg 11/29/2019 12:00:00 AM EST tablet,delayed release (DR/EC) 30 TAKE ONE TABLET BY MOUTH EVERY DAY TAKE ONE TABLET BY MOUTH EVERY DAY SOLD: 01/25/2020 [facility] 81 mg 11/29/2019 12:00:00 AM EST tablet,delayed release (DR/EC) 30 TAKE ONE TABLET BY MOUTH EVERY DAY TAKE ONE TABLET BY MOUTH EVERY DAY SOLD: 12/28/2019 [facility] 4 mg 11/17/2019 12:00:00 AM EST tablet 24 TAKE ONE TABLET BY MOUTH EVERY 6 HOURS NEEDED FOR NAUSEA TAKE ONE TABLET BY MOUTH EVERY 6 HOURS A S NEEDED FOR NAUSEA SOLD: 11/17/2019 [facility] 10 mg 11/17/2019 12:00:00 AM EST tablet 30 TAKE ONE TABLET BY MOUTH EVERY DAY TAKE ONE TABLET BY MOUTH EVERY DAY SOLD: 11/19/2019 [facility] 5 mg 11/17/2019 12:00:00 AM EST tablet 30 TAKE ONE TABLET BY MOUTH EVERY DAY TAKE ONE TABLET BY MOUTH EVERY DAY SOLD: 03/09/2020 [facility] 10 mg 11/17/2019 12:00:00 AM EST tablet 30 TAKE ONE TABLET BY MOUTH EVERY DAY TAKE ONE TABLET BY MOUTH EVERY DAY SOLD: 02/10/2020 [facility] 10 mg 11/17/2019 12:00:00 AM EST tablet 30 TAKE ONE TABLET BY MOUTH EVERY DAY TAKE ONE TABLET BY MOUTH EVERY DAY SOLD: 01/14/2020 [facility] 5 mg 11/17/2019 12:00:00 AM EST tablet 30 TAKE ONE TABLET BY MOUTH EVERY DAY TAKE ONE TABLET BY MOUTH EVERY DAY SOLD: 02/10/2020 [facility] 10 mg 11/17/2019 12:00:00 AM EST tablet 30 TAKE ONE TABLET BY MOUTH EVERY DAY TAKE ONE TABLET BY MOUTH EVERY DAY SOLD: 12/17/2019 [facility] 5 mg 11/17/2019 12:00:00 AM EST tablet 30 TAKE ONE TABLET BY MOUTH EVERY DAY TAKE ONE TABLET BY MOUTH EVERY DAY SOLD: 11/19/2019 [facility] 5 mg 11/17/2019 12:00:00 AM EST tablet 30 TAKE ONE TABLET BY MOUTH EVERY DAY TAKE ONE TABLET BY MOUTH EVERY DAY SOLD: 12/17/2019 [facility] 5 mg 11/17/2019 12:00:00 AM EST tablet 30 TAKE ONE TABLET BY MOUTH EVERY DAY TAKE ONE TABLET BY MOUTH EVERY DAY SOLD: 01/14/2020 [facility] 5-325 mg 11/17/2019 12:00:00 AM EST tablet 20 TAKE ONE TABLET BY MOUTH EVERY 6 HOURS NEEDED FOR PAIN MAXIMUM DAILY DOSE = 4 TABLETS TAKE ONE TABLET BY MOUTH EVERY 6 HOURS NEEDED FOR PAIN MAXIMUM DAILY DOSE = 4 TABLETS SOLD: 11/17/2019 [facility] Acetaminophen 325 MG / Oxycodone Hydrochloride 5 MG Or al Tablet Oxycodone-Acetaminophen 11/17/2019 12:00:00 AM EST active [facility] ([facility] 10 mg 11/17/2019 12:00:00 AM EST tablet 30 TAKE ONE TABLET BY MOUTH EVERY DAY TAKE ONE TABLET BY MOUTH EVERY DAY SOLD: 03/09/2020 [facility] 10 mg 11/17/2019 12:00:00 AM EST tablet 30 TAKE ONE TABLET BY MOUTH EVERY DAY TAKE ONE TABLET BY MOUTH EVERY DAY SOLD: 04/05/2020 [facility] Ondansetron 4 MG Oral Tablet Ondansetron HCL 11/17/2019 12:00:00 AM EST active [facility] ([facility] Acetaminophen 325 MG / Hydrocodone Bitartrate 5 MG Ora l Tablet Hydrocodone-Acetaminophen 11/14/2019 12:00:00 AM EST ORAL active [facility] ([facility] 5-325 mg 11/14/2019 12:00:00 AM EST tablet 20 TAKE 1-2 TABLETS BY MOUTH EVERY 6 HOURS NEEDED FOR PAIN MAXIMUM DAILY DOSE = 6 TABLETS TAKE 1-2 TABLETS BY MOUTH EVERY 6 HOURS NEEDED FOR PAIN MAXIMUM DAILY DOSE = 6 TABLETS SOLD: 11/14/2019 [facility] 0.4 mg 11/01/2019 12:00:00 AM EST capsule 30 TAKE ONE CAPSULE BY MOUTH EVERY DAY 30MIN. AFTER SAME MEAL TAKE ONE CAPSULE BY MOUTH EVERY DAY 30MI N. AFTER SAME MEAL SOLD: 12/28/2019 [facility] 0.4 mg 11/01/2019 12:00:00 AM EST capsule 30 TAKE ONE CAPSULE BY MOUTH EVERY DAY 30MIN. AFTER SAME MEAL TAKE ONE CAPSULE BY MOUTH EVERY DAY 30MI N. AFTER SAME MEAL SOLD: 11/30/2019 [facility] 0.4 mg 11/01/2019 12:00:00 AM EST capsule 30 TAKE ONE CAPSULE BY MOUTH EVERY DAY 30MIN. AFTER SAME MEAL TAKE ONE CAPSULE BY MOUTH EVERY DAY 30MI N. AFTER SAME MEAL SOLD: 11/02/2019 [facility] 0.4 mg 11/01/2019 12:00:00 AM EST capsule 30 TAKE ONE CAPSULE BY MOUTH EVERY DAY 30MIN. AFTER SAME MEAL TAKE ONE CAPSULE BY MOUTH EVERY DAY 30MI N. AFTER SAME MEAL SOLD: 01/25/2020 [facility] 0.4 mg 11/01/2019 12:00:00 AM EST capsule 30 TAKE ONE CAPSULE BY MOUTH EVERY DAY 30MIN. AFTER SAME MEAL TAKE ONE CAPSULE BY MOUTH EVERY DAY 30MI N. AFTER SAME MEAL SOLD: 02/22/2020 [facility] 800 mg 10/25/2019 12:00:00 AM EST tablet 90 TAKE ONE TABLET BY MOUTH THREE TIMES A DAY NEEDED TAKE ONE TABLET BY MOUTH THREE TIMES A DAY NEEDED S OLD: 11/23/2019 [facility] 800 mg 10/25/2019 12:00:00 AM EST tablet 90 TAKE ONE TABLET BY MOUTH THREE TIMES A DAY NEEDED TAKE ONE TABLET BY MOUTH THREE TIMES A DAY NEEDED S OLD: 10/26/2019 [facility] 500 mg 10/04/2019 12:00:00 AM EST capsule 120 TAKE ONE CAPSULE BY MOUTH EVERY 6 HOURS NEEDED TAKE ONE CAPSULE BY MOUTH EVERY 6 HOURS NEEDED SOLD : 12/28/2019 [facility] 500 mg 10/04/2019 12:00:00 AM EST capsule 120 TAKE ONE CAPSULE BY MOUTH EVERY 6 HOURS NEEDED TAKE ONE CAPSULE BY MOUTH EVERY 6 HOURS NEEDED SOLD : 11/02/2019 [facility] 500 mg 10/04/2019 12:00:00 AM EST capsule 120 TAKE ONE CAPSULE BY MOUTH EVERY 6 HOURS NEEDED TAKE ONE CAPSULE BY MOUTH EVERY 6 HOURS NEEDED SOLD : 01/23/2020 [facility] 500 mg 10/04/2019 12:00:00 AM EST capsule 120 TAKE ONE CAPSULE BY MOUTH EVERY 6 HOURS NEEDED TAKE ONE CAPSULE BY MOUTH EVERY 6 HOURS NEEDED SOLD : 11/30/2019 [facility] 8.6 mg 09/11/2019 12:00:00 AM EST tablet 60 TAKE ONE TO TWO TABLETS BY MOUTH EVERY DAY NEEDED BEFORE BEDTIME TAKE ONE TO TWO TABLETS BY MOUTH EVERY D AY NEEDED BEFORE BEDTIME SOLD: 11/07/2019 [facility] 15 mg 07/27/2019 12:00:00 AM EDT tablet extended release 24hr 30 TAKE ONE TABLET BY MOUTH EVERY DAY TAKE ONE TABLET BY MOUTH EVERY DAY SOLD: 12/17/2019 [facility] 15 mg 07/27/2019 12:00:00 AM EDT tablet extended release 24hr 30 TAKE ONE TABLET BY MOUTH EVERY DAY TAKE ONE TABLET BY MOUTH EVERY DAY SOLD: 11/19/2019 [facility] 15 mg 07/27/2019 12:00:00 AM EDT tablet extended release 24hr 30 TAKE ONE TABLET BY MOUTH EVERY DAY TAKE ONE TABLET BY MOUTH EVERY DAY SOLD: 10/22/2019 [facility] 81 mg 07/10/2019 12:00:00 AM EDT tablet,delayed release (DR/EC) 30 TAKE ONE TABLET BY MOUTH EVERY DAY TAKE ONE TABLET BY MOUTH EVERY DAY SOLD: 11/02/2019 [facility] Docusate Sodium 100 MG Oral Capsule DOCUSATE SODIUM 06/23/2019 1 2:00:00 AM EDT capsule 120 TAKE TWO CAPSULES BY MOUTH TWICE A DAY TAKE TWO CAPSULES BY MOUTH TWICE A DAY SOLD: 11/14/2019 [facility] 100 mg 06/23/2019 12:00:00 AM EDT capsule 120 TAKE TWO CAPSULES BY MOUTH TWICE A DAY TAKE TWO CAPSULES BY MOUTH TWICE A DAY SOLD: 10/19/2019 [facility] 5 mg 06/03/2019 12:00:00 AM EDT tablet 30 TAKE ONE TABLET BY MOUTH ONCE A DAY TAKE ONE TABLET BY MOUTH ONCE A DAY SOLD: 10/22/2019 [facility] 10 mg 05/30/2019 12:00:00 AM EDT tablet 30 TAKE ONE TABLET BY MOUTH ONCE A DAY TAKE ONE TABLET BY MOUTH ONCE A DAY SOLD: 10/19/2019 [facility] Insurance Providers Payer name Policy type / Coverage type Policy ID Covered libertarian ID Covered libertarian's relationship to lagunas Policy [place] Plan Information [facility] [id number] SP [id number] [place] [id number] 18 [id number] [facility] [place] [id number] 18 [id number] [place] MEDICAID [id number] S [id number] [place] [id number] Self [id number] [facility] Care Commercial [id number] Self [id number] [place] Medicaid/P/P Commercial [id number] Self [id number] [place] Medicaid/CHP/FHP Commercial [id number] Self [id number] [place] Commercial [id number] Self [id number] [place] Medicaid/CHP/FHP Commercial [id number] Self [id number] [facility] Commercial [id number] Self [id number] [employer] MKD [id number] S [id number] [place] [facility] Medicaid [id number] S [id number] (DO NOT USE) [facility] Auth PCP Not MVNHC/YHC/GHC [id number] S [id number] Medicaid [id number] Wrap Claims [id number] S [id number] Dental Dentaquest MKD [id number] S [id number] Medicaid [id number] Regular Clinic Visit [id number] S [id number] [place] Medicaid [id number] S [id number] ANSI-Commercial [id number] ANSI-Commercial [id number] ANSI-Commercial [id number] [facility] MEDICAID [id number] S [id number] [place] [id number] S [id number] [place] [facility] Commercial [id number] Self [id number] [place] [id number] Self [id number] [place] [id number] Self [id number] [place] [facility] [place] [id number] 1 [id number] [place] [id number] 18 [id number] [place] [facility] [facility] [id number] 18 [id number] North Medicaid/CHP/FHP Commercial [id number] Self [id number] [place] Medicaid/CHP/FHP Commercial [id number] Self [id number] [facility] [place] [id number] 18 [id number] [place] [id number] Self [id number] ANSI-Commercial [id number] [place] Medicaid/CHP/FHP Commercial [id number] Self [id number] ANSI-Commercial [id number] ANSI-Commercial [id number] North Medicaid/CHP/FHP Commercial [id number] Self [id number] ANSI-Commercial [id number] [place] [facility] Commercial [id number] Self [id number] ANSI-Commercial [id number] [place] Commercial [id number] Self [id number] [place] Medicaid [id number] Self [id number] [place] Commercial [id number] Self [id number] North Medicaid/CHP/FHP Commercial [id number] Self [id number] North Medicaid/CHP/FHP Commercial [id number] Self [id number] ANSI-Commercial [id number] ANSI-Commercial [id number] ANSI-Commercial [id number] Problems, Conditions, and Diagnoses Code Display Name Description Problem Type Effective Dates Data Source(s) [id number] Male urethral stricture Male urethral stricture P roblem 11/05/2020 12:00:00 AM EST [facility] ( Clinics) D50.9 [id number] Iron deficiency anemia, unspecif ied iron deficiency anemia type Problem 10/31/2020 12:00:00 AM EST eCW1 ([facility]) [id number] Onychomycosis Onychomycosis Problem 03/19/2020 12:00:00 AM EDT [facility] ([facility] Corns and callosities Corns and callosities Problem 03/19/2020 12:00:00 AM EDT [facility] ([facility] [id number] Ingrowing nail Ingrowing nail Problem 01/02/2020 12:00:00 AM EDT - 03/19/2020 12:00:00 AM EDT [facility] ([facility] E7800 Pure hypercholesterolemia, unspecified P ure hypercholesterolemia, unspecified Diagnosis 07/22/2020 11:14:00 AM EDT I10 Essential (primary) hypertension Essential (primary) h ypertension Diagnosis 07/22/2020 11:14:00 AM EDT N419 Inflammatory disease of prostate, unspec ified Inflammatory disease of prostate, unspecified Diagnosis 07/22/2020 11:13:00 AM EDT [facility] E8342 Hypomagnesemia Hypomagnesemia Diagnosis 07/22/2020 11:13: 00 AM EDT N390 Urinary tract infection, site not specif ied Urinary tract infection, site not specified Diagnosis 07/22/2020 11:13:00 AM EDT E039 Hypothyroidism, unspecified Hypothyroidism, unspecifie d Diagnosis 07/22/2020 11:13:00 AM EDT E119 Type 2 diabetes mellitus without complic ations Type 2 diabetes mellitus without complications Diagnosis 07/22/2020 11:13:00 AM EDT [facility] D649 Anemia, unspecified Anemia, unspecified Diagnosis 0 07/22/2020 11:13:00 AM EDT E785 Hyperlipidemia, unspecified Hyperlipidemia, unspecifie d Diagnosis 07/22/2020 11:13:00 AM EDT J02.9 Acute pharyngitis, unspecified ACUTE PHARYNGITIS, UNSP ECIFIED Diagnosis 02/05/2020 10:54:00 AM EDT [facility] Surgeries/Procedures Procedure Description Date Indications Data Source(s) ARTHROCENTESIS ASPIR&/INJECTION MAJOR JT/BURSA 021 12:00:00 AM EST [facility] ([facility] ) RADEX SHOULDER COMPLETE MINIMUM 2 VIEWS 11/25/2020 12: 00:00 AM EST [facility] ([facility]) ECHO TTHRC R-T 2D W/WOM-MODE COMPL SPEC&COLR DOP 07/22 12:00:00 AM EDT MED[facility] (Josue Duncan MD) ARTHROCENTESIS ASPIR&/INJECTION MAJOR JT/BURSA 020 12:00:00 AM EDT [facility] ([facility] ) Influenza immunization administered or previously received 12/11/2019 12:00:00 AM EST eCW1 ([facility]) Hammertoe Proc One Toe 11/15/2019 12:00:00 AM EST [facility] ([facility] ARTHROCENTESIS ASPIR&/INJECTION MAJOR JT/BURSA 020 12:00:00 AM EST [facility] ([facility] ) APPL MODALITY 1/> AREAS ELEC STIMJ EA 15 MIN 9 12:00:00 AM EST [facility] ([facility] ) THERAPEUTIC PX 1/> AREAS EACH 15 MIN EXERCISES 019 12:00:00 AM EST [facility] ([facility]) Results ID Date Data Source [id number] 07/22/2020 12:41:00 PM EDT Name Value Range Interpretation Code Description Data Urszula rce(s) Supporting Document(s) Iron [Mass/volume] in Serum or Plasma 41 UG/DL 42 - 135 L ID Date Data Source [id number] 07/22/2020 12:41:00 PM EDT Name Value Range Interpretation Code Description Data Urszula rce(s) Supporting Document(s) Magnesium [Mass/volume] in Serum or Plasma 1.9 MG/DL 1.7 - 2.2 ID Date Data Source [id number] 07/22/2020 12:41:00 PM EDT Name Value Range Interpretation Code Description Data Urszula rce(s) Supporting Document(s) [facility] Cholesterol [Mass/volume] in Serum or Plasma 145 MG/DL 131 - 200 Deprecated Triglyceride [Mass/volume] in Serum or Plasma 60 MG/DL 3 5 - 160 HDL 60 MG/DL 29 - 86 [facility] Cholesterol in LDL [Mass/volume] in Serum or Plasma by Direc t assay 77 mg/dL 65 - 175 Cholesterol.total/Cholesterol in HDL [Mass Ratio] in Serum o r Plasma 2.4 3.4 - 4.9 L LDL/HDL 1.28 1.00 - 3.55 [facility] CVE RISK CHOL/HDL LDL/HDLMEN: 1/2 AVERAGE 3.43 1.00 AVERAGE 4.97 3.55 2X AVERAGE 9.55 6.25 3X AVERAGE 23.99 7.99WOMEN: 1/2 AVERAGE 3.27 1.47 AVERAGE 4.44 3.22 2X AVERAGE 7.05 5.03 3X AVERAGE 11.04 6.14 ID Date Data Source [id number] 07/22/2020 12:41:00 PM EDT Name Value Range Interpretation Code Description Data Urszula rce(s) Supporting Document(s) COMPREHENSIVE METABOLIC PANEL COMPREHENSIVE METABOLIC PANEL Sodium [Moles/volume] in Serum or Plasma 141 mEq/L 134 - 153 Potassium [Moles/volume] in Serum or Plasma 4.3 mEq/L 3.6 - 5.0 Chloride [Moles/volume] in Serum or Plasma 104 mEq/L 98 - 107 Carbon dioxide, total [Moles/volume] in Serum or Plasma 26 MEQ/L 22 - 30 Glucose [Mass/volume] in Serum or Plasma 94 MG/DL 65 - 110 BUN 16 MG/DL 7 - 21 [facility] Creatinine [Mass/volume] in Serum or Plasma 0.9 MG/DL 0.7 - 1.5 BUN/CREAT 18 8 - 27 [facility] Protein [Mass/volume] in Serum or Plasma 7.3 G/DL 6.3 - 8.2 Albumin [Mass/volume] in Serum or Plasma 4.4 G/DL 3.9 - 5.0 Globulin [Mass/volume] in Serum by calculation 2.9 GM/DL 2.4 - 3.2 A/G RATIO 1.5 0.8 - 2.0 [facility] Calcium [Mass/volume] in Serum or Plasma 9.3 MG/DL 8.4 - 10.2 Bilirubin.total [Mass/volume] in Serum or Plasma 0.7 MG/DL 0.2 - 1.3 Alkaline phosphatase [Enzymatic activity/volume] in Serum or Plasma 73 U/L 38 - 126 Aspartate aminotransferase [Enzymatic activity/volume] in Serum or Plasma 19 U/L 5 - 40 Alanine aminotransferase [Enzymatic activity/volume] in Seru m or Plasma 17 U/L 7 - 56 Anion gap 3 in Serum or Plasma 11.0 mmol/L 8.0 - 16.0 AGE 59 yrs [facility] al NON-AA GFR >60 mL/min [facility] ital AFR AMER GFR >60 mL/min [facility] Ho spital Male GFR In terprentation 20-49 yrs >60 mL/min Normal 50-59 yrs >56 mL/min Normal 60-69 yrs >49 mL/min Normal 70-79yrs >42 mL/min Normal 80 and above >35 mL/min Normal Female GFR Interpretation 20-39 yrs >60 mL/min Normal 40-49 yrs >58 mL/min Normal 50-59 yrs >51 mL/min Normal 60-69 yrs >45 mL/min Normal 70-79 yrs >39 mL/min Normal 80 and above >32 mL/min Normal ID Date Data Source [id number] 07/22/2020 12:27:00 PM EDT Name Value Range Interpretation Code Description Data Urszula rce(s) Supporting Document(s) Cobalamin (Vitamin B12) [Mass/volume] in Serum or Plasma 545 PG/ML 232 - 1245 ID Date Data Source [id number] 07/22/2020 12:27:00 PM EDT Name Value Range Interpretation Code Description Data Urszula rce(s) Supporting Document(s) Thyrotropin [Units/volume] in Serum or Plasma by Detec tion limit <= 0.05 mIU/L 2.44 uIU/mL 0.47 - 5.01 ID Date Data Source [id number] 07/22/2020 12:27:00 PM EDT Name Value Range Interpretation Code Description Data Urszula rce(s) Supporting Document(s) Prostate specific Ag [Mass/volume] in Serum or Plasma 3.29 ng/mL 0.00 - 4.00 \\BLDo\\PSA INTERPRETA TION\\BLDx\\ The PSA assay should not be used alone for a screening test or diagnosis for presence or absence of malignant disease. Predictions of disease recurrence should not be based solely on values obtained from serial patient serum values. The PSA result was determined by "[employer]", on the [employer] 6000. Values obtained with different assay methods or kits cannot be used interchangeably. ID Date Data Source [id number] 07/22/2020 11:53:00 AM EDT Name Value Range Interpretation Code Description Data Urszula rce(s) Supporting Document(s) Hemoglobin A1c/Hemoglobin.total in Blood 5.1 % 4.4 - 6.1 {A1]{HB] ID Date Data Source [id number] 07/22/2020 11:36:00 AM EDT Name Value Range Interpretation Code Description Data Urszula rce(s) Supporting Document(s) CBC W/AUTOMATED DIFF COMPLETE BLOOD COUNT Leukocytes [#/volume] in Blood by Automated count 7.9 10^3/uL 4.2 - 1 1.0 Erythrocytes [#/volume] in Blood by Automated count 4.47 10^6/uL 4. 50 - 6.30 L Hemoglobin [Mass/volume] in Blood 12.4 g/dL 14.0 - 16.0 L Hematocrit [Volume Fraction] of Blood by Automated count 38.9 % 4 1.0 - 51.0 L Erythrocyte mean corpuscular volume [Entitic volume] by Auto mated count 87.0 fL 80.0 - 94.0 Erythrocyte mean corpuscular hemoglobin [Entitic mass] by Automated count 27.7 pg 27.0 - 34.0 Erythrocyte mean corpuscular hemoglobin concentration [Mass/volume] by Automated count 31.9 g/dL 31.0 - 36.0 Erythrocyte distribution width [Ratio] by Automated count 13.3 % 11.5 - 14.8 Platelets [#/volume] in Blood by Automated count 225 10^3/uL 150 - 45 0 Platelet mean volume [Entitic volume] in Blood by Automated count 9.4 fL 7.4 - 10.4 Neutrophils/100 leukocytes in Blood by Automated count 69.4 % 37. 0 - 80.0 Lymphocytes/100 leukocytes in Blood by Manual count 20.6 % 25.0 - 40.0 L Monocytes/100 leukocytes in Blood by Automated count 8.2 % 3.0 - 8.0 H Eosinophils/100 leukocytes in Blood by Automated count 0.9 % 0.0 - 7.0 Basophils/100 leukocytes in Blood by Automated count 0.6 % 0.0 - 2.0 %IG 0.3 % 0.0 - [facility] % 0.0 - 0.0 [facility] al Neutrophils [#/volume] in Blood by Automated count 5.48 10^3/uL 2.00 - 6.90 Lymphocytes [#/volume] in Blood by Automated count 1.63 10^3/uL 0.60 - 3.40 Monocytes [#/volume] in Blood by Automated count 0.65 10^3/uL 0.00 - 0.90 Eosinophils [#/volume] in Blood by Automated count 0.07 10^3/uL 0.00 - 0.70 Basophils [#/volume] in Blood by Automated count 0.05 10^3/uL 0.00 - 0.20 #IG 0.02 10^3/uL 0.00 - 0.10 [facility] #NRBC 0.00 10^3/uL 0.00 - 0.00 [facility] MANUAL DIFF NOT INDICATED RBC MORPH NOT INDICATED [facility] spital ID Date Data Source [id number] 04/30/2020 01:01:00 PM EDT [facility] ([facility]) Name Value Range Interpretation Code Description Data Urszula rce(s) Supporting Document(s) Color of Urine Laboratory test result [facility] ([facility]) Leukocytes Laboratory test result [facility] ([facility]) [facility] [place] [facility] pH of Urine by Test strip 8 MEDE NT ([facility]) Appearance of Urine Laboratory test result [facility] ([facility]) Inhouse Glucose Laboratory test result [facility] ([facility]) Protein [Presence] in Urine by Test strip Laboratory test result [facility] ([facility]) Nitrate [Presence] in Urine Laboratory test result [facility] ([facility]) Bilirubin.total [Presence] in Urine by Test strip Laboratory test res ult [facility] ([facility]) Urobilinogen Laboratory test result [facility] ([facility]) Ketones [Presence] in Urine by Test strip Laboratory test result [facility] ([facility]) Blood type and Indirect antibody screen panel - Blood Laboratory test result [facility] ([facility]) ID Date Data Source [id number] 03/06/2020 01:00:00 PM EDT [facility] Name Value Range Interpretation Code Description Data Urszula rce(s) Supporting Document(s) SARS CORONAVIRUS 2 RNA [facility] This lab was ordered by [facility] and reported by [facility]. ID Date Data Source [id number] 11/15/2019 12:49:00 PM EST [facility] ([facility] Name Value Range Interpretation Code Description Data Urszula rce(s) Supporting Document(s) Surgical pathology study Laboratory test result [facility] FINAL DIAGNOSIS Bone, right 2nd toe, hammertoe correction: A portion of bone with cartilage, gross only. 11/16/2019713 CLINICAL DIAGNOSIS Hammertoe second right 11/16/2019713 GROSS DIAGNOSIS Received in formalin labeled "bone right foot" is a fragment of bone with overlying cartilage measuring 1.3 x 0.8 x 0.6 cm. Gross only. -YZ 11/16/2019713 Signed Mehreen Cameron M.D. 11/16/2019 0930 Procedure Social History Code Duration Value Status Description Data Source(s ) Smoking 10/30/2020 12:00:00 AM EST Never Smoker completed Never S moker eCW1 ([facility]) Smoking 02/16/2020 12:00:00 AM EDT Never Smoker completed Never S moker eCW1 ([facility]) Smoking 02/16/2020 12:00:00 AM EDT Never Smoker completed Never S moker eCW1 ([facility]) Vital Signs ID Date Data Source UNK Name Value Range Interpretation Code Description Data Source(s) Oxygen saturation in Arterial blood by Pulse oximetry 93 % 93 % [facility] ([facility]) Respiratory rate 18 /min 18 /min [facility] ( [facility]) Heart rate 73 /min 73 /min [facility] ([facility]) Diastolic blood pressure 86 mm[Hg] 86 mm[Hg] MED[facility] ([facility]) Systolic blood pressure 135 mm[Hg] 135 mm[Hg] M EDENT ([facility]) Diastolic blood pressure 70 mm[Hg] 70 mm[Hg] eCW1 ([facility]) Systolic blood pressure 100 mm[Hg] 100 mm[Hg] e CW1 ([facility]) Body temperature 98.8 [degF] 98.8 [degF] eCW1 ( [facility]) Respiratory rate 18 /min 18 /min eCW1 ([facility]) Heart rate 79 /min 79 /min eCW1 ([facility]) Body mass index (BMI) [Ratio] 33.64 kg/m2 33.64 kg/m2 eCW1 ([facility]) Body height 74 [in_i] 74 [in_i] eCW1 ([facility]) Body weight 262 [lb_av] 262 [lb_av] eCW1 ([facility]) Oxygen saturation in Arterial blood by Pulse oximetry 97 % 97 % [facility] ([facility]) Heart rate 70 /min 70 /min [facility] ([facility]) Diastolic blood pressure 75 mm[Hg] 75 mm[Hg] YASMEEN ([facility]) Systolic blood pressure 120 mm[Hg] 120 mm[Hg] M MARCELO ([facility]) Body temperature 99.0 [degF] 99.0 [degF] MED[facility] ([facility]) Body mass index (BMI) [Ratio] 35.5 kg/m2 35.5 k g/m2 BRIANENT ([facility]) Body weight 269.00 [lb_av] 269.00 [lb_av] MEDEN T ([facility]) Body height 73 [in_i] 73 [in_i] YASMEEN (Josue Duncan MD) 6'1" Diastolic blood pressure 78 mm[Hg] 78 mm[Hg] MEDESDRAS ([facility] Systolic blood pressure 126 mm[Hg] 126 mm[Hg] M MARCELO ([facility] Body weight 120.204 kg 120.204 kg MED[facility] ([facility]) Body weight 265.00 [lb_av] 265.00 [lb_av] MEDEN T ([facility]) Oxygen saturation in Arterial blood by Pulse oximetry 93 % 93 % [facility] ([facility]) Respiratory rate 20 /min 20 /min [facility] ( [facility]) Heart rate 67 /min 67 /min [facility] ([facility]) Diastolic blood pressure 76 mm[Hg] 76 mm[Hg] MED[facility] ([facility]) Systolic blood pressure 123 mm[Hg] 123 mm[Hg] M EDENT ([facility]) Diastolic blood pressure 80 mm[Hg] 80 mm[Hg] eCW1 ([facility]) Systolic blood pressure 120 mm[Hg] 120 mm[Hg] e CW1 ([facility]) Body temperature 98.8 [degF] 98.8 [degF] W1 ( [facility]) Respiratory rate 18 /min 18 /min eCW1 ([facility]) Heart rate 76 /min 76 /min eCW1 ([facility]) Body mass index (BMI) [Ratio] 33.46 kg/m2 33.46 kg/m2 [facility] ([facility]) Body height 74 [in_us] 74 [in_us] W1 ([facility]) Body weight Measured 260.6 [lb_av] 260.6 [lb_av ] eCW1 ([facility]) Diastolic blood pressure 80 mm[Hg] 80 mm[Hg] eCW1 ([facility]) Systolic blood pressure 118 mm[Hg] 118 mm[Hg] e CW1 ([facility]) Body temperature 98.3 [degF] 98.3 [degF] eCW1 ( [facility]) Respiratory rate 20 /min 20 /min eCW1 ([facility]) Heart rate 74 /min 74 /min eCW1 ([facility]) Body mass index (BMI) [Ratio] 32.84 kg/m2 32.84 kg/m2 eCW1 ([facility]) Body height 74 [in_us] 74 [in_us] eCW1 ([facility]) Body weight Measured 255.8 [lb_av] 255.8 [lb_av ] eCW1 ([facility]) Patient Treatment Plan of Care Planned Activity Planned Date Details Description Data Source (s) doxycycline hyclate 100 MG Oral Tablet 02/21/2020 12:00:00 AM EDT eCW1 ([facility]) doxycycline hyclate 100 MG Oral Tablet 02/21/2020 12:00:00 AM EDT eCW1 ([facility]) doxycycline hyclate 100 MG Oral Tablet 02/21/2020 12:00:00 AM EDT eCW1 ([facility]) doxycycline hyclate 100 MG Oral Tablet 02/21/2020 12:00:00 AM EDT eCW1 ([facility]) doxycycline hyclate 100 MG Oral Tablet 02/21/2020 12:00:00 AM EDT eCW1 ([facility]) doxycycline hyclate 100 MG Oral Tablet 02/21/2020 12:00:00 AM EDT eCW1 ([facility]) Famotidine 20 MG Oral Tablet 02/16/2020 12:00:00 AM EDT eCW1 ([facility]) Famotidine 20 MG Oral Tablet 02/16/2020 12:00:00 AM EDT eCW1 ([facility])
--- OUTSIDE RECORDS SUMMARY | 2020-12-11 16:08 | CCD | Continuity of Care Document ---
Author Author Victorino LEGGETT DPM Organization Unknown Address [address] [place] [address], [address] [place] [address] Phone [phone] Care Team Providers Care Personnel Coordinator Name Role Phone Servage Valerie JACKMAN AUTM [phone] Canelo Duncan M.D AUTM [phone] Problems Active Problems Provider Date Hammer toe [...] Glycol 3350 3350NF Packet Unknown Flucelvax Quadrivalent 7612-3608 0.5ml Jeannette Unknown Oxybutynin Chloride ER 5mg Tablets ER 24HR Unknown Hydrocortisone 2.5% Cream Unknown Hydrocortisone-Aloe 1% Cream Unknown Levofloxacin 500mg Tablets Unknown Ciprofloxacin HCL 500mg Tablets Unknown Mapap 500mg Tablets Unknown Tamsulosin HCL 0.4mg Capsules Unknown Docusate Sodium 100mg Capsules Unknown Aspir-Low 81mg Tablets DR Take One Tablet By Mouth Every Day Unknown Senna 8.6mg Tablets Servage ANP,Valerie L. Oxybutynin Chloride ER 10mg Tablets ER 24HR Servage ANP,Valerie L. Mapap 500mg Capsules Servage ANP,Valerie L. Atorvastatin Calcium 10mg Tablets Servage ANP,Valerie [...] Date Location Provider Dx Diagnosis Office Visit 07/29/2020 2:45p [place] [facility] Woodrow Leggett DPM M20.40 Other hammer toe(s) (acquired), unspecified foot L84 Corns and callosities B35.1 Tinea unguium Office Visit 05/28/2020 10:45a [place] [facility] Woodrow Leggett DPM M20.40 Other hammer toe(s) (acquired), unspecified foot L84 Corns and callosities Assessments Date Code Description Provider 07/29/2020 M20.40 Other hammer toe(s) (acquired), unspecified foot Woodrow Leggett DPM 07/29/2020 L84 Corns and callosities Woodrow Leggett DPM 07/29/2020 B35.1 Tinea unguium Woodrow Leggett DPM 05/28/2020 M20.40 Other hammer toe(s) (acquired), unspecified foot [place] Leggett DPM 05/28/2020 L84 Corns and callosities Woodrow Leggett DPM Plan of Treatment Future Appointment(s):* 12/09/2020 2:45 pm - Woodrow Leggett DPM at [facility] Functional Status Description No Information Available Mental Status Description No Information Available Referrals Refer to Reason for Referral Status Appt Date Woodrow Leggett DPM Created [address] [id number] [phone]
[2020-12-11 17:32] LABS: BASO % 0.2 % (0.0-1.0); EOS % 0.1 % (0.0-3.0); HEMATOCRIT 40.8 % (42.0-52.0); HEMOGLOBIN 12.9 g/dl (13.5-17.5); LYMPH # 1.3 10^3/uL (1.5-5.0); LYMPH % 7.1 % (24.0-44.0); MEAN CORPUSCULAR HEMOGLOBIN 27.9 pg (27.0-33.0); MEAN CORPUSCULAR HGB CONC 31.6 g/dl (32.0-36.5); MEAN CORPUSCULAR VOLUME 88.3 fl (80.0-96.0); MONO # 1.1 10^3/uL (0.0-0.8); MONO % 6.3 % (2.0-8.0); NEUTROPHILS # 15.4 10^3/uL (1.5-8.5); NEUTROPHILS % 85.8 % (36.0-66.0); PLATELET COUNT, AUTOMATED 195 10^3/uL (150-450); RED BLOOD COUNT 4.62 10^6/uL (4.30-6.10)
[2020-12-11 18:03] LABS: ALBUMIN 3.5 GM/DL (3.2-5.2); BILIRUBIN,DIRECT 0.3 MG/DL (0.0-0.2); BILIRUBIN,TOTAL 1.4 MG/DL (0.2-1.0)
--- OUTSIDE RECORDS SUMMARY | 2020-12-11 18:12 | CCD ---
Author Author [facility] Organization [facility] Address Unknown Phone Unavailable Care Team Providers Care System Integration Engineer Name Role Phone KRISTAENOW, Anupama TREVINO [...] CHRISTOPHER PA Unavailable Unavailable Servage, L Valerie EDITORIAL CARTOONIST Unavailable Unavailable Servage, L Valerie EDITORIAL CARTOONIST Unavailable Unavailable Servage, L Valerie EDITORIAL CARTOONIST Unavailable Unavailable Servage, L Valerie EDITORIAL CARTOONIST Unavailable Unavailable Servage, L Valerie EDITORIAL CARTOONIST Unavailable Unavailable Servage, L Valerie EDITORIAL CARTOONIST Unavailable Unavailable Servage, L Valerie EDITORIAL CARTOONIST Unavailable Unavailable Servage, L Valerie EDITORIAL CARTOONIST Unavailable Unavailable Servage, L Valerie EDITORIAL CARTOONIST Unavailable Unavailable Servage, L Valerie EDITORIAL CARTOONIST Unavailable Unavailable Servage, L Valerie EDITORIAL CARTOONIST Unavailable Unavailable Servage, L Valerie EDITORIAL CARTOONIST Unavailable Unavailable Servage, L Valerie EDITORIAL CARTOONIST Unavailable Unavailable Servage, L Valerie EDITORIAL CARTOONIST Unavailable Unavailable Servage, L Valerie EDITORIAL CARTOONIST Unavailable Unavailable Servage, L Valerie EDITORIAL CARTOONIST Unavailable Unavailable Servage, L Valerie EDITORIAL CARTOONIST Unavailable Unavailable Servage, L Valerie EDITORIAL CARTOONIST Unavailable Unavailable Servage, L Valerie EDITORIAL CARTOONIST Unavailable Unavailable Servage, L Valerie EDITORIAL CARTOONIST Unavailable Unavailable Servage, L Valerie EDITORIAL CARTOONIST Unavailable Unavailable Servage, L Valerie EDITORIAL CARTOONIST Unavailable Unavailable Servage, L Valerie EDITORIAL CARTOONIST Unavailable Unavailable Servage, L Valerie EDITORIAL CARTOONIST Unavailable Unavailable Servage, L Valerie EDITORIAL CARTOONIST Unavailable Unavailable Servage, L Valerie EDITORIAL CARTOONIST Unavailable Unavailable Servage, L Valerie EDITORIAL CARTOONIST Unavailable Unavailable Servage, L Valerie EDITORIAL CARTOONIST Unavailable Unavailable Servage, L Valerie EDITORIAL CARTOONIST Unavailable Unavailable Servage, L Valerie EDITORIAL CARTOONIST Unavailable Unavailable Servage, L Valerie EDITORIAL CARTOONIST Unavailable Unavailable Servage, L Valerie EDITORIAL CARTOONIST Unavailable Unavailable Servage, L Valerie EDITORIAL CARTOONIST Unavailable Unavailable Servage, L Valerie EDITORIAL CARTOONIST Unavailable Unavailable Servage, L Valerie EDITORIAL CARTOONIST Unavailable Unavailable Servage, L Valerie EDITORIAL CARTOONIST Unavailable Unavailable Servage, L Valerie EDITORIAL CARTOONIST Unavailable Unavailable Servage, L Valerie EDITORIAL CARTOONIST Unavailable Unavailable Servage, L Valerie EDITORIAL CARTOONIST Unavailable Unavailable Servage, L Valerie EDITORIAL CARTOONIST Unavailable Unavailable Servage, L Valerie EDITORIAL CARTOONIST Unavailable Unavailable Servage, L Valerie EDITORIAL CARTOONIST Unavailable Unavailable Servage, L Valerie EDITORIAL CARTOONIST Unavailable Unavailable Servage, L Valerie EDITORIAL CARTOONIST Unavailable Unavailable Servage, L Valerie EDITORIAL CARTOONIST Unavailable Unavailable Servage, L Valerie EDITORIAL CARTOONIST Unavailable Unavailable Servage, L Valerie EDITORIAL CARTOONIST Unavailable Unavailable Servage, L Valerie EDITORIAL CARTOONIST Unavailable Unavailable Servage, L Valerie EDITORIAL CARTOONIST Unavailable Unavailable Servage, L Valerie EDITORIAL CARTOONIST Unavailable Unavailable Servage, L Valerie EDITORIAL CARTOONIST Unavailable Unavailable Servage, L Valerie EDITORIAL CARTOONIST Unavailable Unavailable Servage, L Valerie EDITORIAL CARTOONIST Unavailable Unavailable Servage, L Valerie EDITORIAL CARTOONIST Unavailable Unavailable Servage, L Valerie EDITORIAL CARTOONIST Unavailable Unavailable Servage, L Valerie EDITORIAL CARTOONIST Unavailable Unavailable CROOKS SR, UMU WILD MD [...] Unavailable Johnson, M Barratt PA Unavailable Unavailable OBZluy DELGADILLO MD Unavailable Unavailable OBZuly DELGADILLO MD [...] MAQBOOL JOSUE MD Unavailable Unavailable ARNULFO, MAQBOOL OJSUE MD Unavailable Unavailable ARNULFO, MAQBOOL JOSUE MD [...] JOSUE MD Unavailable Unavailable Servage, L Valerie EDITORIAL CARTOONIST Unavailable Unavailable Servage, L Valerie EDITORIAL CARTOONIST Unavailable Unavailable Servage, L Valerie EDITORIAL CARTOONIST Unavailable Unavailable Servage, L Valerie EDITORIAL CARTOONIST Unavailable Unavailable Servage, L Valerie EDITORIAL CARTOONIST Unavailable Unavailable Servage, L Valerie EDITORIAL CARTOONIST Unavailable Unavailable Servage, L Valerie EDITORIAL CARTOONIST Unavailable Unavailable Servage, L Valerie EDITORIAL CARTOONIST Unavailable Unavailable Servage, L Valerie EDITORIAL CARTOONIST Unavailable Unavailable Servage, L Valerie EDITORIAL CARTOONIST Unavailable Unavailable Servage, L Valerie EDITORIAL CARTOONIST Unavailable Unavailable Servage, L Valerie EDITORIAL CARTOONIST Unavailable Unavailable Servage, L Valerie EDITORIAL CARTOONIST Unavailable Unavailable Servage, L Valerie EDITORIAL CARTOONIST Unavailable Unavailable Servage, L Valerie EDITORIAL CARTOONIST Unavailable Unavailable Servage, L Valerie EDITORIAL CARTOONIST Unavailable Unavailable Servage, L Valerie EDITORIAL CARTOONIST Unavailable Unavailable Servage, L Valerie EDITORIAL CARTOONIST Unavailable Unavailable Servage, L Valerie EDITORIAL CARTOONIST Unavailable Unavailable Servage, L Valerie EDITORIAL CARTOONIST Unavailable Unavailable Servage, L Valerie EDITORIAL CARTOONIST Unavailable Unavailable Servage, L Valerie EDITORIAL CARTOONIST Unavailable Unavailable Servage, L Valerie EDITORIAL CARTOONIST Unavailable Unavailable Servage, L Valerie EDITORIAL CARTOONIST Unavailable Unavailable Servage, L Valerie EDITORIAL CARTOONIST Unavailable Unavailable Servage, L Valerie EDITORIAL CARTOONIST Unavailable Unavailable Servage, L Valerie EDITORIAL CARTOONIST Unavailable Unavailable Servage, L Valerie EDITORIAL CARTOONIST Unavailable Unavailable Servage, L Valerie EDITORIAL CARTOONIST Unavailable Unavailable Servage, L Valerie EDITORIAL CARTOONIST Unavailable Unavailable Servage, L Valerie EDITORIAL CARTOONIST Unavailable Unavailable Servage, L Valerie EDITORIAL CARTOONIST Unavailable Unavailable Servage, L Valerie EDITORIAL CARTOONIST Unavailable Unavailable Servage, L Valerie EDITORIAL CARTOONIST Unavailable Unavailable Servage, L Valerie EDITORIAL CARTOONIST Unavailable Unavailable Servage, L Valerie EDITORIAL CARTOONIST Unavailable Unavailable Servage, L Valerie EDITORIAL CARTOONIST Unavailable Unavailable Servage, L Valerie EDITORIAL CARTOONIST Unavailable Unavailable Servage, L Valerie EDITORIAL CARTOONIST Unavailable Unavailable Servage, L Valerie EDITORIAL CARTOONIST Unavailable Unavailable Servage, L Valerie EDITORIAL CARTOONIST Unavailable Unavailable Servage, L Valerie EDITORIAL CARTOONIST Unavailable Unavailable Servage, L Valerie EDITORIAL CARTOONIST Unavailable Unavailable Servage, L Valerie EDITORIAL CARTOONIST Unavailable Unavailable Servage, L Valerie EDITORIAL CARTOONIST Unavailable Unavailable Servage, L Valerie EDITORIAL CARTOONIST Unavailable Unavailable Servage, L Valerie EDITORIAL CARTOONIST Unavailable Unavailable Servage, L Valerie EDITORIAL CARTOONIST Unavailable Unavailable Servage, L Valerie EDITORIAL CARTOONIST Unavailable Unavailable Servage, L Valerie EDITORIAL CARTOONIST Unavailable Unavailable Servage, L Valerie EDITORIAL CARTOONIST Unavailable Unavailable Servage, L Valerie EDITORIAL CARTOONIST Unavailable Unavailable Servage, L Valerie EDITORIAL CARTOONIST Unavailable Unavailable Servage, L Valerie EDITORIAL CARTOONIST Unavailable Unavailable Servage, L Valerie EDITORIAL CARTOONIST Unavailable Unavailable Servage, L Valerie EDITORIAL CARTOONIST Unavailable Unavailable Re-disclosure Warning The records that [...] is protected by Article 27-F of the [facility] Public Health law. If you continue you may have access to information: Regarding HIV / AIDS; Provided by facilities licensed or operated by the [facility] Office of Mental Health; or Provided by the [facility] Office for People With Developmental Disabilities. If such information is present, then the following [facility] mandated warning applies: This information has [...] law may result in a fine or residential sentence or both. A general authorization for the release of medical or other information is NOT sufficient authorization for further disc losure. Allergies and Adverse Reactions Type Description Substance Reaction Status Data Source(s ) CLASS PCN (penicillin) PCN (penicillin) HIVES [facility] Drug allergy Penicillin (For Allergies Use Only) Drug allergy Hives Active eCW1 ([facility]) Family History Family Member Name Family Member Gender Family Member Status Date o f Status Description Data Source(s) Unknown Unknown Problem MEDENT ([facility]) Mother and father-Type unknown Unknown Male Problem MEDENT ([facility]) () Unknown Male Problem MEDENT ([facility]) Unknown Male Problem MED[facility] ([facility] Encounters Encounter Providers Location Date Indications Data Source(s ) Outpatient Attender: GAYLA LEGGETT [facility] 11/25 01:30:00 PM EST MEDENT ([facility] Outpatient Attender: Aston SAHU Physical Therapy 09:30:00 AM EST MEDENT ([facility] ) Outpatient Attender: MARLON NIELSEN MDConsultant: Valerie perez EDITORIAL CARTOONIST 11/05/2020 08:51:00 AM EST - 11/05/2020 08:51:00 AM EST [facility] Outpatient Attender: MARLON NIELSEN MD Family Practice 11/05/2020 08:30:0 0 AM EST MED[facility] ([facility]) [place] [address] [facility] [address] 10/31/2020 12:00:00 AM EST eCW1 ([facility]) Outpatient Attender: GAYLA LEGGETT [facility] 04/2020 01:45:00 PM EST MEDENT ([facility] Outpatient Attender: GAYLA LEGGETT [facility] 02/2020 02:45:00 PM EDT MED[facility] ([facility] [address] [facility] [address] 07/26/2020 12:00:00 AM EDT eCW1 ([facility]) Outpatient Attender: Valerie Pierson NPConsultant: Valerie srinivasan EDITORIAL CARTOONIST 07/22/2020 11:14:00 AM EDT - 07/22/2020 12:14:00 PM EDT [facility] Outpatient Attender: JOSUE DUNCAN MDConsultant: Valerie velarde EDITORIAL CARTOONIST 07/22/2020 11:13:00 AM EDT - 07/22/2020 12:13:00 PM EDT [facility] Outpatient Attender: JOSUE DUNCAN MD Medical [facility] 07/22 10:00:00 AM EDT MEDENT (Josue Duncan MD) [facility] [address] [facility] [address] 06/20/2020 12:00:00 AM EDT eCW1 ([facility]) Outpatient Attender: GAYLA LEGGETT [facility] 0801/2020 10:45:00 AM EDT [facility] ([facility] [place] [address] [facility] [address] 05/07/2020 12:00:00 AM EDT eCW1 ([facility]) Outpatient Attender: MARLON NIELSEN MD Family Practice 04/30/2020 01:30:0 0 PM EDT MEDENT ([facility]) Outpatient Attender: MARLON NIELSEN MDConsultant: Valerie perez EDITORIAL CARTOONIST 04/30/2020 12:42:00 PM EDT - 04/30/2020 12:42:00 PM EDT [facility] Outpatient Attender: GAYLA LEGGETT [facility] 02/23 10:45:00 AM EDT [facility] ([facility] [address] [address] 03/04/2020 12:00:00 AM EDT eCW1 ([facility]) [address] [address] 02/25/2020 12:00:00 AM EDT eCW1 ([facility]) [address] [place] [address] 02/25/2020 12:00:00 AM EDT eCW1 ([facility]) [address] [address] 02/23/2020 12:00:00 AM EDT eCW1 ([facility]) [address] [place] [address] 02/21/2020 12:00:00 AM EDT eCW1 ([facility]) [address] [place] [address] 02/18/2020 12:00:00 AM EDT eCW1 ([facility]) [address] [place] [address] 02/16/2020 12:00:00 AM EDT eCW1 ([facility]) [address] [address] 02/15/2020 12:00:00 AM EDT [facility]CW1 [facility] Outpatient Attender: Aston SAHU Physical Therapy 03:45:00 PM EDT MEDENT ([facility]) Outpatient Attender: JUNITO CROOKS SR 02/05/2020 10:54:00 AM EDT [facility] Outpatient Attender: MARLON NIELSEN MDConsultant: Valerie perez NP 01/30/2020 11:26:00 AM EDT - 01/30/2020 11:26:00 AM EDT [address] [address] 01/26/2020 12:00:00 AM EDT [facility]CW1 [facility] Outpatient Attender: GAYLA LEGGETT [facility] 02/2020 09:45:00 AM EST MEDENT ([facility] [address] [address] 12/18/2019 12:00:00 AM EST [facility]CW1 [facility]) [address] [address] 12/11/2019 12:00:00 AM EST [facility]CW1 ([facility]) [address] [place] [address] 11/22/2019 12:00:00 AM EST eCW1 ([facility]) [address] [place] [address] 11/08/2019 12:00:00 AM EST eCW1 [facility]) Outpatient Attender: Aston SAHU Physical Therapy 01:45:00 PM EST MEDENT ([facility] [address] [facility] [address] 10/26/2019 12:00:00 AM EST eCW1 ([facility]) Emergency Attender: URIEL Farah : Valerie Pierson NP EMERGENCY ROOM-ER 11/17/2018 06:32:00 PM EST - 11/17/2018 08:24:00 PM [employer] Medications Medication Brand Name Start Date Product [...] CAPSULE BY MOUTH ONCE A DAY 30 NM NUTES AFTER THE SAME MEAL SOLD: 09/12/2020 [facility] 0.4 mg 08/12/2020 12:00:00 AM EDT capsule 30 TAKE 1 CAPSULE BY MOUTH ONCE A DAY 30 MINUTES AFTER THE SAME MEAL TAKE 1 CAPSULE BY MOUTH ONCE A DAY 30 NM NUTES AFTER THE SAME MEAL SOLD: 10/10/2020 [facility] 0.4 mg 08/12/2020 12:00:00 AM EDT capsule 30 TAKE 1 CAPSULE BY MOUTH ONCE A DAY 30 MINUTES AFTER THE SAME MEAL TAKE 1 CAPSULE BY MOUTH ONCE A DAY 30 NM NUTES AFTER THE SAME MEAL SOLD: 08/13/2020 [facility] 0.4 mg 08/12/2020 12:00:00 AM EDT capsule 30 TAKE 1 CAPSULE BY MOUTH ONCE A DAY 30 MINUTES AFTER THE SAME MEAL TAKE 1 CAPSULE BY MOUTH ONCE A DAY 30 NM NUTES AFTER THE SAME MEAL SOLD: 11/07/2020 [facility] 0.4 mg 08/12/2020 12:00:00 AM EDT capsule 30 TAKE 1 CAPSULE BY MOUTH ONCE A DAY 30 MINUTES AFTER THE SAME MEAL TAKE 1 CAPSULE BY MOUTH ONCE A DAY 30 NM NUTES AFTER THE SAME MEAL SOLD: 12/05/2020 [...] BY MOUTH THREE TIMES A DAY NEEDED [facility] 300 mg 07/29/2020 12:00:00 AM [...] 05/28/2020 12:00:00 AM EDT active MEDENT ([facility] 12 % 05/28/2020 12:00:00 AM EDT [...] TABLET BY MOUTH EVERY DAY SOLD: 09/22/2020 [facility] 10 mg 05/02/2020 12:00:00 AM [...] {tablet} active Doxycycline Hyclate 100 MG eCW1 ([facility]) doxycycline hyclate 100 MG Oral Tablet Doxycycline Hyc late 100 MG Doxycycline Hyclate 100 MG 02/21/2020 12:00:00 AM EDT 1.0 {tablet} active Doxycycline Hyclate 100 MG eCW1 ([facility]) doxycycline hyclate 100 MG Oral Tablet Doxycycline Hyc late 100 MG Doxycycline Hyclate 100 MG 02/21/2020 12:00:00 AM EDT active 1 tablet eCW1 ([facility]) doxycycline hyclate 100 MG Oral Tablet Doxycycline Hyc late 100 MG Doxycycline Hyclate 100 MG 02/21/2020 12:00:00 AM EDT active 1 tablet eCW1 ([facility]) doxycycline hyclate 100 MG Oral Tablet Doxycycline Hyc late 100 MG Doxycycline Hyclate 100 MG 02/21/2020 12:00:00 AM EDT 1.0 {tablet} active Doxycycline Hyclate 100 MG eCW1 ([facility]) 100 mg 02/21/2020 12:00:00 AM EDT tablet 10 TAKE ONE TABLET BY MOUTH EVERY 12 HOURS FOR 5 DAYS TAKE ONE TABLET BY MOUTH EVERY 12 HOURS FOR 5 DAYS [facility] doxycycline hyclate 100 MG Oral Tablet Doxycycline Hyc late 100 MG Doxycycline Hyclate 100 MG 02/21/2020 12:00:00 AM EDT 1.0 {tablet} active Doxycycline Hyclate 100 MG eCW1 ([facility]) 500 mg 02/19/2020 12:00:00 AM EDT capsule [...] {tablet_at_bedtime_as_needed} active Fa motidine 20 MG eCW1 ([facility]) 10 mg 02/16/2020 12:00:00 AM EDT tablet [...] {tablet_at_bedtime_as_needed} active Fa motidine 20 MG eCW1 ([facility]) 20 mg 02/16/2020 12:00:00 AM EDT tablet [...] TWO TIMES A DAY SOLD: 12/12/2019 [facility] Docusate Sodium 100 MG Oral Capsule [...] Oxycodone-Acetaminophen 11/17/2019 12:00:00 AM EST active MEDENT ([facility] 10 mg 11/17/2019 12:00:00 AM EST [...] D AY NEEDED BEFORE BEDTIME SOLD: 11/07/2019 [facility] 15 mg 07/27/2019 12:00:00 AM EDT [...] type / Coverage type Policy ID Covered alliance party ID Covered alliance party's relationship to [place] Policy [place] Plan Information NORTH [id number] SP [id number] [place] [id number] 18 [id number] NOR[place] CARE [facility] [place] [id number] 18 [id number] NORTH CARE MEDICAID [id number] S [id number] [place] Commercial [id number] Self [id number] [facility] Care Commercial [id number] Self [id number] North Medicaid/P/P Commercial [id number] Self [id number] [place]/CHP/FHP Commercial [id number] Self [id number] [place] Commercial [id number] Self [id number] North Medicaid/CHP/FHP Commercial [id number] Self [id number] [facility] Commercial [id number] Self [id number] Emil Vision MKD [id number] S [id number] [place] [facility] Medicaid [id number] S [id number] (DO NOT USE) North Care Auth PCP Not MVNHC/YHC/GHC [id number] S [id number] Medicaid [id number] Wrap Claims [id number] S [id number] Dental Dentaquest MKD [id number] S [id number] Medicaid [id number] Regular Clinic Visit [id number] S [id number] [place] [id number] S [id number] ANSI-Commercial [id number] ANSI-Commercial [id number] ANSI-Commercial [id number] NORTH CARE MEDICAID [id number] S [id number] [place] [id number] S [id number] [facility] Health Care Commercial [id number] Self [id number] [place] [id number] Self [id number] [place] Commercial [id number] Self [id number] [place] [facility] CO [id number] 1 [id number] [place] [id number] 18 [id number] [place] X[place] -[place]YS[place] [id number] 18 [id number] [place] Medicaid/CHP/FHP Commercial [id number] Self [id number] [place]/CHP/FHP Commercial [id number] Self [id number] [facility] [place] [id number] 18 [id number] [place] Commercial [id number] Self [id number] ANSI-Commercial [id number] North Medicaid/CHP/FHP Commercial [id number] Self [id number] ANSI-Commercial [id number] ANSI-Commercial [id number] [place] Medicaid/CHP/FHP Commercial [id number] Self [id number] ANSI-Commercial [id number] [place] [facility] Commercial [id number] Self [id number] ANSI-Commercial [id number] [place] Commercial [id number] Self [id number] [place] [id number] Self [id number] [place] Commercial [id number] Self [id number] North Medicaid/CHP/FHP Commercial [id number] Self [id number] [place]/CHP/FHP Commercial [id number] Self [id number] ANSI-Commercial [id number] ANSI-Commercial [id number] ANSI-Commercial [id number] Problems, Conditions, and Diagnoses Code Display Name Description Problem Type Effective Dates Data Source(s) [id number] Male urethral stricture Male urethral stricture P roblem 11/05/2020 12:00:00 AM EST MEDENT ([facility]) D50.9 [id number] Iron deficiency anemia, unspecif ied iron deficiency anemia type Problem 10/31/2020 12:00:00 AM EST eCW1 ([facility]) [id number] Onychomycosis Onychomycosis Problem 03/19/2020 12:00:00 AM EDT MED[facility] ([facility] Corns and callosities Corns and callosities Problem 03/19/2020 12:00:00 AM EDT MED[facility] ([facility] [id number] Ingrowing nail Ingrowing nail Problem 01/02/2020 12:00:00 AM EDT - 03/19/2020 12:00:00 AM EDT [facility] ([facility] E7800 Pure hypercholesterolemia, unspecified P ure hypercholesterolemia, unspecified Diagnosis 07/22/2020 11:14:00 AM EDT [facility] I10 Essential (primary) hypertension Essential (primary) h ypertension Diagnosis 07/22/2020 11:14:00 AM EDT [facility] N419 Inflammatory disease of prostate, unspec ified Inflammatory disease of prostate, unspecified Diagnosis 07/22/2020 11:13:00 AM EDT [facility] E8342 Hypomagnesemia Hypomagnesemia Diagnosis 07/22/2020 11:13: 00 AM EDT [facility] N390 Urinary tract infection, site not specif ied Urinary tract infection, site not specified Diagnosis 07/22/2020 11:13:00 AM EDT [facility] E039 Hypothyroidism, unspecified Hypothyroidism, unspecifie d Diagnosis 07/22/2020 11:13:00 AM EDT [facility] E119 Type 2 diabetes mellitus without complic ations Type 2 diabetes mellitus without complications Diagnosis 07/22/2020 11:13:00 AM EDT [facility] D649 Anemia, unspecified Anemia, unspecified Diagnosis 0 07/22/2020 11:13:00 AM EDT [facility] E785 Hyperlipidemia, unspecified Hyperlipidemia, unspecifie d Diagnosis 07/22/2020 11:13:00 AM EDT [facility] J02.9 Acute pharyngitis, unspecified ACUTE PHARYNGITIS, UNSP ECIFIED Diagnosis 02/05/2020 10:54:00 AM EDT [facility] Surgeries/Procedures Procedure Description Date Indications Data Source(s) ARTHROCENTESIS ASPIR&/INJECTION MAJOR JT/BURSA 021 12:00:00 AM EST MEDENT ([facility]) RADEX SHOULDER COMPLETE MINIMUM 2 VIEWS 11/25/2020 12: 00:00 AM EST MEDENT ([facility]) ECHO TTHRC R-T 2D W/WOM-MODE COMPL SPEC&COLR DOP 07/22 12:00:00 AM EDT MEDENT (Josue Duncan MD) ARTHROCENTESIS ASPIR&/INJECTION MAJOR JT/BURSA 020 12:00:00 AM EDT MEDENT ([facility] ) Influenza immunization administered or previously received 12/11/2019 12:00:00 AM EST eCW1 ([facility]) Hammertoe Proc One Toe 11/15/2019 12:00:00 AM EST [facility] ([facility] ARTHROCENTESIS ASPIR&/INJECTION MAJOR JT/BURSA 020 12:00:00 AM EST MEDENT ([facility] ) APPL MODALITY 1/> AREAS ELEC STIMJ EA 15 MIN 9 12:00:00 AM EST MEDENT ([facility] ) THERAPEUTIC PX 1/> AREAS EACH 15 MIN EXERCISES 019 12:00:00 AM EST MEDENT ([facility]) Results ID Date Data Source [id number] 07/22/2020 12:41:00 PM EDT [facility] Name Value Range Interpretation Code Description Data Urszula rce(s) Supporting Document(s) Iron [Mass/volume] in Serum or Plasma 41 UG/DL 42 - 135 L [facility] ID Date Data Source [id number] 07/22/2020 12:41:00 PM EDT [facility] Name Value Range Interpretation Code Description Data Urszula rce(s) Supporting Document(s) Magnesium [Mass/volume] in Serum or Plasma 1.9 MG/DL 1.7 - 2.2 [facility] ID Date Data Source [id number] 07/22/2020 12:41:00 PM EDT [facility] Name Value Range Interpretation Code Description Data Urszula rce(s) Supporting Document(s) [facility] L[facility] Cholesterol [Mass/volume] in Serum or Plasma 145 MG/DL 131 - 200 [facility] Deprecated Triglyceride [Mass/volume] in Serum or Plasma 60 MG/DL 3 5 - 160 [facility] HDL 60 MG/DL 29 - 86 [facility] Cholesterol in LDL [Mass/volume] in Serum or Plasma by Direc t assay 77 mg/dL 65 - 175 [facility] Cholesterol.total/Cholesterol in HDL [Mass Ratio] in Serum o r Plasma 2.4 3.4 - 4.9 L [facility] LDL/HDL 1.28 1.00 - 3.55 [facility] CVE RISK CHOL/HDL LDL/HDLMEN: 1/2 AVERAGE 3.43 1.00 AVERAGE 4.97 3.55 2X AVERAGE 9.55 6.25 3X AVERAGE 23.99 7.99WOMEN: 1/2 AVERAGE 3.27 1.47 AVERAGE 4.44 3.22 2X AVERAGE 7.05 5.03 3X AVERAGE 11.04 6.14 ID Date Data Source [id number] 07/22/2020 12:41:00 PM EDT [facility] Name Value Range Interpretation Code Description Data Urszula rce(s) Supporting Document(s) COMPREHENSIVE METABOLIC PANEL [facility] COMPREHENSIVE METABOLIC PANEL Sodium [Moles/volume] in Serum or Plasma 141 mEq/L 134 - 153 [facility] Potassium [Moles/volume] in Serum or Plasma 4.3 mEq/L 3.6 - 5.0 [facility] Chloride [Moles/volume] in Serum or Plasma 104 mEq/L 98 - 107 [facility] Carbon dioxide, total [Moles/volume] in Serum or Plasma 26 MEQ/L 22 - 30 [facility] Glucose [Mass/volume] in Serum or Plasma 94 MG/DL 65 - 110 [facility] BUN 16 MG/DL 7 - 21 [facility] Creatinine [Mass/volume] in Serum or Plasma 0.9 MG/DL 0.7 - 1.5 [facility] BUN/CREAT 18 8 - 27 [facility] Protein [Mass/volume] in Serum or Plasma 7.3 G/DL 6.3 - 8.2 [facility] Albumin [Mass/volume] in Serum or Plasma 4.4 G/DL 3.9 - 5.0 [facility] Globulin [Mass/volume] in Serum by calculation 2.9 GM/DL 2.4 - 3.2 [facility] A/G RATIO 1.5 0.8 - 2.0 [facility] Calcium [Mass/volume] in Serum or Plasma 9.3 MG/DL 8.4 - 10.2 [facility] Bilirubin.total [Mass/volume] in Serum or Plasma 0.7 MG/DL 0.2 - 1.3 [facility] Alkaline phosphatase [Enzymatic activity/volume] in Serum or Plasma 73 U/L 38 - 126 [facility] Aspartate aminotransferase [Enzymatic activity/volume] in Serum or Plasma 19 U/L 5 - 40 [facility] Alanine aminotransferase [Enzymatic activity/volume] in Seru m or Plasma 17 U/L 7 - 56 [facility] Anion gap 3 in Serum or Plasma 11.0 mmol/L 8.0 - 16.0 [facility] AGE 59 yrs [facility] al NON-AA GFR >60 mL/min [facility] AFR AMER GFR >60 mL/min [facility] Male GFR In terprentation [...] >32 mL/min Normal ID Date Data Source [id number] 07/22/2020 12:27:00 PM EDT [facility] Name Value Range Interpretation Code Description Data Urszula rce(s) Supporting Document(s) Cobalamin (Vitamin B12) [Mass/volume] in Serum or Plasma 545 PG/ML 232 - 1245 [facility] ID Date Data Source [id number] 07/22/2020 12:27:00 PM EDT [facility] Name Value Range Interpretation Code Description Data Urszula rce(s) Supporting Document(s) Thyrotropin [Units/volume] in Serum or Plasma by Detec tion limit <= 0.05 mIU/L 2.44 uIU/mL 0.47 - 5.01 [facility] ID Date Data Source [id number] 07/22/2020 12:27:00 PM EDT [facility] Name Value Range Interpretation Code Description Data Urszula rce(s) Supporting Document(s) Prostate specific Ag [Mass/volume] in Serum or Plasma 3.29 ng/mL 0.00 - 4.00 [facility] \\BLDo\\PSA INTERPRETA TION\\BLDx\\ The PSA assay should [...] be used interchangeably. ID Date Data Source [id number] 07/22/2020 11:53:00 AM EDT [facility] Name Value Range Interpretation Code Description Data Urszula rce(s) Supporting Document(s) Hemoglobin A1c/Hemoglobin.total in Blood 5.1 % 4.4 - 6.1 [facility] {A1]{HB] ID Date Data Source [id number] 07/22/2020 11:36:00 AM EDT [facility] Name Value Range Interpretation Code Description Data Urszula rce(s) Supporting Document(s) CBC W/AUTOMATED DIFF [facility] COMPLETE BLOOD COUNT Leukocytes [#/volume] in Blood by Automated count 7.9 10^3/uL 4.2 - 1 1.0 [facility] Erythrocytes [#/volume] in Blood by Automated count 4.47 10^6/uL 4. 50 - 6.30 L [facility] Hemoglobin [Mass/volume] in Blood 12.4 g/dL 14.0 - 16.0 L [facility] Hematocrit [Volume Fraction] of Blood by Automated count 38.9 % 4 1.0 - 51.0 L [facility] Erythrocyte mean corpuscular volume [Entitic volume] by Auto mated count 87.0 fL 80.0 - 94.0 [facility] Erythrocyte mean corpuscular hemoglobin [Entitic mass] by Automated count 27.7 pg 27.0 - 34.0 [facility] Erythrocyte mean corpuscular hemoglobin concentration [Mass/volume] by Automated count 31.9 g/dL 31.0 - 36.0 [facility] Erythrocyte distribution width [Ratio] by Automated count 13.3 % 11.5 - 14.8 [facility] Platelets [#/volume] in Blood by Automated count 225 10^3/uL 150 - 45 0 [facility] Platelet mean volume [Entitic volume] in Blood by Automated count 9.4 fL 7.4 - 10.4 [facility] Neutrophils/100 leukocytes in Blood by Automated count 69.4 % 37. 0 - 80.0 [facility] Lymphocytes/100 leukocytes in Blood by Manual count 20.6 % 25.0 - 40.0 L [facility] Monocytes/100 leukocytes in Blood by Automated count 8.2 % 3.0 - 8.0 H [facility] Eosinophils/100 leukocytes in Blood by Automated count 0.9 % 0.0 - 7.0 [facility] Basophils/100 leukocytes in Blood by Automated count 0.6 % 0.0 - 2.0 [facility] %IG 0.3 % 0.0 - 0.0 [facility] %NRBC 0.0 % 0.0 - 0.0 [facility] al Neutrophils [#/volume] in Blood by Automated count 5.48 10^3/uL 2.00 - 6.90 [facility] Lymphocytes [#/volume] in Blood by Automated count 1.63 10^3/uL 0.60 - 3.40 [facility] Monocytes [#/volume] in Blood by Automated count 0.65 10^3/uL 0.00 - 0.90 [facility] Eosinophils [#/volume] in Blood by Automated count 0.07 10^3/uL 0.00 - 0.70 [facility] Basophils [#/volume] in Blood by Automated count 0.05 10^3/uL 0.00 - 0.20 [facility] #IG 0.02 10^3/uL 0.00 - 0.10 [facility] #NRBC 0.00 10^3/uL 0.00 - 0.00 [facility] MANUAL DIFF NOT INDICATED [facility] RBC MORPH NOT INDICATED [facility] spital ID Date Data Source [id number] 04/30/2020 01:01:00 PM EDT [facility] ([facility]) Name Value Range Interpretation Code Description Data Urszula rce(s) Supporting Document(s) Color of Urine Laboratory test result [facility] ([facility]) Leukocytes Laboratory test result [facility] ([facility]) Spec [place] 1.005 [facility] ([facility]) pH of Urine by Test strip 8 MED[facility] NT ([facility]) Appearance of Urine Laboratory test result [facility] ([facility]) Inhouse Glucose Laboratory test result [facility] ([facility]) Protein [Presence] in Urine by Test strip Laboratory test result [facility] ([facility]) Nitrate [Presence] in Urine Laboratory test result [facility] ([facility]) Bilirubin.total [Presence] in Urine by Test strip Laboratory test res ult [facility] ([facility]) Urobilinogen Laboratory test result [facility] ([facility]) Ketones [Presence] in Urine by Test strip Laboratory test result [facility] ([facility]) Blood type and Indirect antibody screen panel - Blood Laboratory test result [facility] ([facility]) ID Date Data Source [id number] 03/06/2020 01:00:00 PM EDT [facility] Name Value Range Interpretation Code Description Data Urszula rce(s) Supporting Document(s) SARS CORONAVIRUS 2 RNA [facility] This lab was ordered by [facility] and reported by [facility]. ID Date Data Source [id number] 11/15/2019 12:49:00 PM EST [facility] ([facility] Name Value Range Interpretation Code Description Data Urszula rce(s) Supporting Document(s) Surgical pathology study Laboratory test result [facility] FINAL DIAGNOSIS Bone, right 2nd toe, [...] Never Smoker completed Never S moker [facility]CW1 ([facility]) Smoking 02/16/2020 12:00:00 AM EDT Never Smoker completed Never S moker eCW1 ([facility]) Smoking 02/16/2020 12:00:00 AM EDT Never Smoker completed Never S moker eCW1 ([facility]) Vital Signs ID Date Data Source [id number] Name Value Range Interpretation Code Description Data Source(s) Oxygen saturation in Arterial blood by Pulse oximetry 93 % 93 % [facility] ([facility]) Respiratory rate 18 /min 18 /min [facility] ( [facility]) Heart rate 73 /min 73 /min [facility] ([facility]) Diastolic blood pressure 86 mm[Hg] 86 mm[Hg] [facility] ([facility]) Systolic blood pressure 135 mm[Hg] 135 mm[Hg] M EDENT ([facility]) Diastolic blood pressure 70 mm[Hg] 70 mm[Hg] eCW1 ([facility]) Systolic blood pressure 100 mm[Hg] 100 mm[Hg] e CW1 ([facility]) Body temperature 98.8 [degF] 98.8 [degF] eCW1 ( [facility]) Respiratory rate 18 /min 18 /min eCW1 ([facility]) Heart rate 79 /min 79 /min eCW1 ([facility]) Body mass index (BMI) [Ratio] 33.64 kg/m2 33.64 kg/m2 eCW1 ([facility]) Body height 74 [in_i] 74 [in_i] eCW1 ([facility]) Body weight 262 [lb_av] 262 [lb_av] eCW1 ([facility]) Oxygen saturation in Arterial blood by Pulse oximetry 97 % 97 % [facility] ([facility]) Heart rate 70 /min 70 /min MEDESDRAS ([facility]) Diastolic blood pressure 75 mm[Hg] 75 mm[Hg] YASMEEN ([facility]) Systolic blood pressure 120 mm[Hg] 120 mm[Hg] M MARCELO ([facility]) Body temperature 99.0 [degF] 99.0 [degF] YASMEEN ([facility]) Body mass index (BMI) [Ratio] 35.5 kg/m2 35.5 k g/m2 BRIANENT ([facility]ue Duncan [facility]) Body weight 269.00 [lb_av] 269.00 [lb_av] MEDEN T ([facility]) Body height 73 [in_i] 73 [in_i] YASMEEN ([facility]ue [facility]) 6'1" Diastolic blood pressure 78 mm[Hg] 78 mm[Hg] [facility]AS ([facility] Systolic blood pressure 126 mm[Hg] 126 mm[Hg] M MARCELO ([facility] Body weight 120.204 kg 120.204 kg [facility] ([facility]) Body weight 265.00 [lb_av] 265.00 [lb_av] MEDEN T ([facility]) Oxygen saturation in Arterial blood by Pulse oximetry 93 % 93 % [facility] ([facility]) Respiratory rate 20 /min 20 /min [facility] ( [facility]) Heart rate 67 /min 67 /min [facility] ([facility]) Diastolic blood pressure 76 mm[Hg] 76 mm[Hg] [facility] ([facility]) Systolic blood pressure 123 mm[Hg] 123 mm[Hg] M EDENT ([facility]) Diastolic blood pressure 80 mm[Hg] 80 mm[Hg] eCW1 ([facility]) Systolic blood pressure 120 mm[Hg] 120 mm[Hg] e CW1 ([facility]) Body temperature 98.8 [degF] 98.8 [degF] W1 ( [facility]) Respiratory rate 18 /min 18 /min eCW1 ([facility]) Heart rate 76 /min 76 /min eCW1 ([facility]) Body mass index (BMI) [Ratio] 33.46 kg/m2 33.46 kg/m2 [facility] ([facility]) Body height 74 [in_us] 74 [in_us] W1 ([facility]) Body weight Measured 260.6 [lb_av] 260.6 [lb_av ] W1 ([facility]) Diastolic blood pressure 80 mm[Hg] 80 mm[Hg] eCW1 ([facility]) Systolic blood pressure 118 mm[Hg] 118 mm[Hg] e CW1 ([facility]) Body temperature 98.3 [degF] 98.3 [degF] eCW1 ( [facility]) Respiratory rate 20 /min 20 /min eCW1 ([facility]) Heart rate 74 /min 74 /min eCW1 ([facility]) Body mass index (BMI) [Ratio] 32.84 kg/m2 32.84 kg/m2 eCW1 ([facility]) Body height 74 [in_us] 74 [in_us] eCW1 ([facility]) Body weight Measured 255.8 [lb_av] 255.8 [lb_av ] eCW1 ([facility]) Patient Treatment Plan of Care Planned Activity Planned Date Details Description Data Source (s) doxycycline hyclate 100 MG Oral Tablet 02/21/2020 12:00:00 AM EDT eCW1 ([facility]) doxycycline hyclate 100 MG Oral Tablet 02/21/2020 12:00:00 AM EDT eCW1 ([facility]) doxycycline hyclate 100 MG Oral Tablet 02/21/2020 12:00:00 AM EDT eCW1 ([facility]) doxycycline hyclate 100 MG Oral Tablet 02/21/2020 12:00:00 AM EDT eCW1 ([facility]) doxycycline hyclate 100 MG Oral Tablet 02/21/2020 12:00:00 AM EDT eCW1 ([facility]) doxycycline hyclate 100 MG Oral Tablet 02/21/2020 12:00:00 AM EDT eCW1 ([facility]) Famotidine 20 MG Oral Tablet 02/16/2020 12:00:00 AM EDT eCW1 ([facility]) Famotidine 20 MG Oral Tablet 02/16/2020 12:00:00 AM EDT eCW1 ([facility])
[2020-12-11] MEDS ORDERED: cefTRIAXone SOD 1 GM in D5W MINI-BAG PLUS 50 ML IV ONE (18:15)
[2020-12-11] MEDS ORDERED: ACETAMINOPHEN 325 MG TAB PO ONE (18:15)
[2020-12-11] MEDS ORDERED: NS 1,000 ML IV ONE (18:15)
--- NOTE | 2020-12-11 18:55 | REPVR ---
PROCEDURE INFORMATION: Exam: CT Abdomen And Pelvis Without Contrast Exam date and time: 12/11/2020 6:33 PM Age: 60 years old Clinical indication: Abdominal pain; Additional info: Concern for obstructing stone, fever/poss pyelo TECHNIQUE: Imaging protocol: Computed tomography of the abdomen and pelvis without contrast. Radiation optimization: All CT scans at this facility use at least one of these dose optimization techniques: automated exposure control; mA and/or kV adjustment per patient size (includes targeted exams where dose is matched to clinical indication); or iterative reconstruction. COMPARISON: No relevant prior studies available. FINDINGS: Heart: Small pericardial effusion. Liver: Normal. No mass. Gallbladder and bile ducts: There are gallstones present. No evidence of cholecystitis demonstrated. Pancreas: Normal. No ductal dilation. Spleen: There is mild splenomegaly with a maximum span of 13 centimeters. No focal abnormalities demonstrated. Adrenal glands: Normal. No mass. Kidneys and ureters: Normal. No hydronephrosis. Stomach and bowel: Unremarkable. No obstruction. No mucosal thickening. Appendix: No evidence of appendicitis. Intraperitoneal space: Unremarkable. No free air. No significant fluid collection. Vasculature: The aortoiliac vessels demonstrate mild atherosclerotic calcification. Retroaortic left renal vein. Lymph nodes: Unremarkable. No enlarged lymph nodes. Urinary bladder: Diffuse thickening of the bladder wall likely related to changes of chronic bladder outlet obstruction. Mild perivesicular inflammatory changes may suggest cystitis. Reproductive: The prostate gland demonstrates moderate hyperplasia. Hazy periprosthetic fat may suggest acute or subacute prostatic inflammation and prostatitis. Bones/joints: Severe central spinal stenosis L2-L3, L3-L4 and L4-L5. Large indeterminate age Schmorl's node at inferior endplate of L2. Dextroscoliosis. Soft tissues: Large left inguinal hernia with increased density demonstrated within the herniated contents concerning for possible incarceration. IMPRESSION: 1. There are gallstones present. No evidence of cholecystitis demonstrated. 2. There is mild splenomegaly with a maximum span of 13 centimeters. No focal abnormalities demonstrated. 3. The prostate gland demonstrates moderate hyperplasia. Hazy periprosthetic fat may suggest acute or subacute prostatic inflammation and prostatitis. Moderate prostatic hyperplasia. Possible prostatitis. 4. Large left inguinal hernia with increased density demonstrated within the herniated contents concerning for possible incarceration. 5. Diffuse thickening of the bladder wall likely related to changes of chronic bladder outlet obstruction. Mild perivesicular inflammatory changes may suggest cystitis. Electronically signed by: Waqar Roberto On 12/11/2020 18:55:02 PM
[2020-12-11] MEDS ORDERED: ASPI81TA26 PO (19:27)
[2020-12-11] MEDS ORDERED: OXYB15TA14 PO (19:27)
[2020-12-11] MEDS ORDERED: IBUP80TA PO (19:27)
[2020-12-11 20:35] LABS: RSV AMPLIFICATION NEGATIVE (NEGATIVE)
[2020-12-11] MEDS ORDERED: ACETAMINOPHEN TAB 650MG DOSE (2X325MG) PO PRN (21:15)
--- OUTSIDE RECORDS SUMMARY | 2020-12-11 21:34 | CCD ---
Author Author [facility] Organization [facility] Address Unknown Phone Unavailable Care Team Providers Care Remote Encoding Operations Supervisor Name Role Phone KRISTAENOW, Anupama TREVINO PA [...] CHRISTOPHER PA Unavailable Unavailable Servage, L Valerie RELAY TELEGRAPHER Unavailable Unavailable Servage, L Valerie RELAY TELEGRAPHER Unavailable Unavailable Servage, L Valerie RELAY TELEGRAPHER Unavailable Unavailable Servage, L Valerie RELAY TELEGRAPHER Unavailable Unavailable Servage, L Valerie RELAY TELEGRAPHER Unavailable Unavailable Servage, L Valerie RELAY TELEGRAPHER Unavailable Unavailable Servage, L Valerie RELAY TELEGRAPHER Unavailable Unavailable Servage, L Valerie RELAY TELEGRAPHER Unavailable Unavailable Servage, L Valerie RELAY TELEGRAPHER Unavailable Unavailable Servage, L Valerie RELAY TELEGRAPHER Unavailable Unavailable Servage, L Valerie RELAY TELEGRAPHER Unavailable Unavailable Servage, L Valerie RELAY TELEGRAPHER Unavailable Unavailable Servage, L Valerie RELAY TELEGRAPHER Unavailable Unavailable Servage, L Valerie RELAY TELEGRAPHER Unavailable Unavailable Servage, L Valerie RELAY TELEGRAPHER Unavailable Unavailable Servage, L Valerie RELAY TELEGRAPHER Unavailable Unavailable Servage, L Valerie RELAY TELEGRAPHER Unavailable Unavailable Servage, L Valerie RELAY TELEGRAPHER Unavailable Unavailable Servage, L Valerie RELAY TELEGRAPHER Unavailable Unavailable Servage, L Valerie RELAY TELEGRAPHER Unavailable Unavailable Servage, L Valerie RELAY TELEGRAPHER Unavailable Unavailable Servage, L Valerie RELAY TELEGRAPHER Unavailable Unavailable Servage, L Valerie RELAY TELEGRAPHER Unavailable Unavailable Servage, L Valerie RELAY TELEGRAPHER Unavailable Unavailable Servage, L Valerie RELAY TELEGRAPHER Unavailable Unavailable Servage, L Valerie RELAY TELEGRAPHER Unavailable Unavailable Servage, L Valerie RELAY TELEGRAPHER Unavailable Unavailable Servage, L Valerie RELAY TELEGRAPHER Unavailable Unavailable Servage, L Valerie RELAY TELEGRAPHER Unavailable Unavailable Servage, L Valerie RELAY TELEGRAPHER Unavailable Unavailable Servage, L Valerie RELAY TELEGRAPHER Unavailable Unavailable Servage, L Valerie RELAY TELEGRAPHER Unavailable Unavailable Servage, L Valerie RELAY TELEGRAPHER Unavailable Unavailable Servage, L Valerie RELAY TELEGRAPHER Unavailable Unavailable Servage, L Valerie RELAY TELEGRAPHER Unavailable Unavailable Servage, L Valerie RELAY TELEGRAPHER Unavailable Unavailable Servage, L Valerie RELAY TELEGRAPHER Unavailable Unavailable Servage, L Valerie RELAY TELEGRAPHER Unavailable Unavailable Servage, L Valerie RELAY TELEGRAPHER Unavailable Unavailable Servage, L Valerie RELAY TELEGRAPHER Unavailable Unavailable Servage, L Valerie RELAY TELEGRAPHER Unavailable Unavailable Servage, L Valerie RELAY TELEGRAPHER Unavailable Unavailable Servage, L Valerie RELAY TELEGRAPHER Unavailable Unavailable Servage, L Valerie RELAY TELEGRAPHER Unavailable Unavailable Servage, L Valerie RELAY TELEGRAPHER Unavailable Unavailable Servage, L Valerie RELAY TELEGRAPHER Unavailable Unavailable Servage, L Valerie RELAY TELEGRAPHER Unavailable Unavailable Servage, L Valerie RELAY TELEGRAPHER Unavailable Unavailable Servage, L Valerie RELAY TELEGRAPHER Unavailable Unavailable Servage, L Valerie RELAY TELEGRAPHER Unavailable Unavailable Servage, L Valerie RELAY TELEGRAPHER Unavailable Unavailable Servage, L Valerie RELAY TELEGRAPHER Unavailable Unavailable Servage, L Valerie RELAY TELEGRAPHER Unavailable Unavailable Servage, L Valerie RELAY TELEGRAPHER Unavailable Unavailable Servage, L Valerie RELAY TELEGRAPHER Unavailable Unavailable Servage, L Valerie RELAY TELEGRAPHER Unavailable Unavailable CROOKS SR, UMU WILD MD [...] JOSUE MD Unavailable Unavailable Servage, L Valerie RELAY TELEGRAPHER Unavailable Unavailable Servage, L Valerie RELAY TELEGRAPHER Unavailable Unavailable Servage, L Valerie RELAY TELEGRAPHER Unavailable Unavailable Servage, L Valerie RELAY TELEGRAPHER Unavailable Unavailable Servage, L Valerie RELAY TELEGRAPHER Unavailable Unavailable Servage, L Valerie RELAY TELEGRAPHER Unavailable Unavailable Servage, L Valerie RELAY TELEGRAPHER Unavailable Unavailable Servage, L Valerie RELAY TELEGRAPHER Unavailable Unavailable Servage, L Valerie RELAY TELEGRAPHER Unavailable Unavailable Servage, L Valerie RELAY TELEGRAPHER Unavailable Unavailable Servage, L Valerie RELAY TELEGRAPHER Unavailable Unavailable Servage, L Valerie RELAY TELEGRAPHER Unavailable Unavailable Servage, L Valerie RELAY TELEGRAPHER Unavailable Unavailable Servage, L Valerie RELAY TELEGRAPHER Unavailable Unavailable Servage, L Valerie RELAY TELEGRAPHER Unavailable Unavailable Servage, L Valerie RELAY TELEGRAPHER Unavailable Unavailable Servage, L Valerie RELAY TELEGRAPHER Unavailable Unavailable Servage, L Valerie RELAY TELEGRAPHER Unavailable Unavailable Servage, L Valerie RELAY TELEGRAPHER Unavailable Unavailable Servage, L Valerie RELAY TELEGRAPHER Unavailable Unavailable Servage, L Valerie RELAY TELEGRAPHER Unavailable Unavailable Servage, L Valerie RELAY TELEGRAPHER Unavailable Unavailable Servage, L Valerie RELAY TELEGRAPHER Unavailable Unavailable Servage, L Valerie RELAY TELEGRAPHER Unavailable Unavailable Servage, L Valerie RELAY TELEGRAPHER Unavailable Unavailable Servage, L Valerie RELAY TELEGRAPHER Unavailable Unavailable Servage, L Valerie RELAY TELEGRAPHER Unavailable Unavailable Servage, L Valerie RELAY TELEGRAPHER Unavailable Unavailable Servage, L Valerie RELAY TELEGRAPHER Unavailable Unavailable Servage, L Valerie RELAY TELEGRAPHER Unavailable Unavailable Servage, L Valerie RELAY TELEGRAPHER Unavailable Unavailable Servage, L Valerie RELAY TELEGRAPHER Unavailable Unavailable Servage, L Valerie RELAY TELEGRAPHER Unavailable Unavailable Servage, L Valerie RELAY TELEGRAPHER Unavailable Unavailable Servage, L Valerie RELAY TELEGRAPHER Unavailable Unavailable Servage, L Valerie RELAY TELEGRAPHER Unavailable Unavailable Servage, L Valerie RELAY TELEGRAPHER Unavailable Unavailable Servage, L Valerie RELAY TELEGRAPHER Unavailable Unavailable Servage, L Valerie RELAY TELEGRAPHER Unavailable Unavailable Servage, L Valerie RELAY TELEGRAPHER Unavailable Unavailable Servage, L Valerie RELAY TELEGRAPHER Unavailable Unavailable Servage, L Valerie RELAY TELEGRAPHER Unavailable Unavailable Servage, L Valerie RELAY TELEGRAPHER Unavailable Unavailable Servage, L Valerie RELAY TELEGRAPHER Unavailable Unavailable Servage, L Valerie RELAY TELEGRAPHER Unavailable Unavailable Servage, L Valerie RELAY TELEGRAPHER Unavailable Unavailable Servage, L Valerie RELAY TELEGRAPHER Unavailable Unavailable Servage, L Valerie RELAY TELEGRAPHER Unavailable Unavailable Servage, L Valerie RELAY TELEGRAPHER Unavailable Unavailable Servage, L Valerie RELAY TELEGRAPHER Unavailable Unavailable Servage, L Valerie RELAY TELEGRAPHER Unavailable Unavailable Servage, L Valerie RELAY TELEGRAPHER Unavailable Unavailable Servage, L Valerie RELAY TELEGRAPHER Unavailable Unavailable Servage, L Valerie RELAY TELEGRAPHER Unavailable Unavailable Servage, L Valerie RELAY TELEGRAPHER Unavailable Unavailable Servage, L Valerie RELAY TELEGRAPHER Unavailable Unavailable Re-disclosure Warning The records that [...] is protected by Article 27-F of the [facility] Public Health law. If you continue you may have access to information: Regarding HIV / AIDS; Provided by facilities licensed or operated by the [facility] Office of Mental Health; or Provided by the [facility] Office for People With Developmental Disabilities. If such information is present, then the following [facility] mandated warning applies: This information has [...] law may result in a fine or assisted sentence or both. A general authorization for the release of medical or other information is NOT sufficient authorization for further disc losure. Allergies and Adverse Reactions Type Description Substance Reaction Status Data Source(s ) CLASS PCN (penicillin) PCN (penicillin) HIVES [facility] Drug allergy Penicillin (For Allergies Use Only) Drug allergy Hives Active eCW1 ([facility]) Family History Family Member Name Family Member Gender Family Member Status Date o f Status Description Data Source(s) Unknown Unknown Problem MEDENT ([facility]) Mother and father-Type unknown Unknown Male Problem MEDENT ([facility]) () Unknown Male Problem MEDENT ([facility]) Unknown Male Problem MEDENT ([facility] Encounters Encounter Providers Location Date Indications Data Source(s ) Outpatient Attender: GAYLA LEGGETT [facility] 11/25 01:30:00 PM EST MEDENT ([facility] Outpatient Attender: Aston SAHU Physical Therapy 09:30:00 AM EST MEDENT ([facility] ) Outpatient Attender: MARLON NIELSEN MDConsultant: Valerie perez RELAY TELEGRAPHER 11/05/2020 08:51:00 AM EST - 11/05/2020 08:51:00 AM EST [facility] Outpatient Attender: MARLON NIELSEN MD Family Practice 11/05/2020 08:30:0 0 AM EST MED[facility] ([facility]) [place] [address] [facility] [address] 10/31/2020 12:00:00 AM EST eCW1 ([facility]) Outpatient Attender: GAYLA LEGGETT [facility] 04/2020 01:45:00 PM EST MED[facility] ([facility] Outpatient Attender: GAYLA LEGGETT [facility] 02/2020 02:45:00 PM EDT MEDENT ([facility] [address] [address] 07/26/2020 12:00:00 AM EDT eCW1 ([facility]) Outpatient Attender: Valerie Pierson NPConsultant: Vaelrie srinivasan RELAY TELEGRAPHER 07/22/2020 11:14:00 AM EDT - 07/22/2020 12:14:00 PM EDT [facility] Outpatient Attender: JOSUE DUNCAN MDConsultant: Valerie velarde RELAY TELEGRAPHER 07/22/2020 11:13:00 AM EDT - 07/22/2020 12:13:00 PM EDT [facility] Outpatient Attender: JOSUE DUNCAN MD Medical [facility] 07/22 10:00:00 AM EDT MEDENT (Josue Duncan MD) [facility] [address] [address] 06/20/2020 12:00:00 AM EDT eCW1 ([facility]) Outpatient Attender: GAYLA LEGGETT [facility] 0801/2020 10:45:00 AM EDT [facility] ([facility] [place] [address] [address] [address] 05/07/2020 12:00:00 AM EDT eCW1 ([facility]) Outpatient Attender: MARLON NIELSEN MD Family Practice 04/30/2020 01:30:0 0 PM EDT MEDENT ([facility]) Outpatient Attender: MARLON NIELSEN MDConsultant: Valerie perez RELAY TELEGRAPHER 04/30/2020 12:42:00 PM EDT - 04/30/2020 12:42:00 PM EDT [facility] Outpatient Attender: GAYLA LEGGETT [facility] 02/23 10:45:00 AM EDT [facility] ([facility] [address] [address] 03/04/2020 12:00:00 AM EDT eCW1 ([facility]) [address] [address] 02/25/2020 12:00:00 AM EDT eCW1 ([facility]) [address] [place] [address] 02/25/2020 12:00:00 AM EDT eCW1 ([facility]) [address] [address] 02/23/2020 12:00:00 AM EDT eCW1 ([facility]) [address] [place] [address] 02/21/2020 12:00:00 AM EDT eCW1 ([facility]) [address] [place] [address] 02/18/2020 12:00:00 AM EDT eCW1 ([facility]) [address] [place] [address] 02/16/2020 12:00:00 AM EDT eCW1 ([facility]) [address] [address] 02/15/2020 12:00:00 AM EDT eCW1 [facility]) Outpatient Attender: Aston SAHU Physical Therapy 03:45:00 PM EDT MEDENT ([facility]) Outpatient Attender: JUNITO CROOKS SR 02/05/2020 10:54:00 AM EDT [facility] Outpatient Attender: MARLON NIELSEN MDConsultant: Valerie perez NP 01/30/2020 11:26:00 AM EDT - 01/30/2020 11:26:00 AM EDT [address] [address] 01/26/2020 12:00:00 AM EDT eCW1 ([facility]) Outpatient Attender: GAYLA LEGGETT [facility] 02/2020 09:45:00 AM EST MEDENT ([facility] [address] [address] 12/18/2019 12:00:00 AM EST eCW1 ([facility]) [address] [address] 12/11/2019 12:00:00 AM EST eCW1 ([facility] [address] [place] [address] 11/22/2019 12:00:00 AM EST eCW1 ([facility] [address] [place] [address] 11/08/2019 12:00:00 AM EST eCW1 ([facility]) Outpatient Attender: Aston SAHU Physical Therapy 01:45:00 PM EST MEDENT ([facility]) [facility] [address] [address] 10/26/2019 12:00:00 AM EST eCW1 ([facility]) Emergency Attender: URIEL Farah : Valerie Pierson NP EMERGENCY ROOM-ER 11/17/2018 06:32:00 PM EST - 11/17/2018 08:24:00 PM [facility] Medications Medication Brand Name Start Date [...] CAPSULE BY MOUTH ONCE A DAY 30 [place] NUTES AFTER THE SAME MEAL SOLD: 09/12/2020 [facility] 0.4 mg 08/12/2020 12:00:00 AM EDT capsule 30 TAKE 1 CAPSULE BY MOUTH ONCE A DAY 30 MINUTES AFTER THE SAME MEAL TAKE 1 CAPSULE BY MOUTH ONCE A DAY 30 [place] NUTES AFTER THE SAME MEAL SOLD: 10/10/2020 [facility] 0.4 mg 08/12/2020 12:00:00 AM EDT capsule 30 TAKE 1 CAPSULE BY MOUTH ONCE A DAY 30 MINUTES AFTER THE SAME MEAL TAKE 1 CAPSULE BY MOUTH ONCE A DAY 30 [place] NUT[place] AFTER THE SAME MEAL SOLD: 08/13/2020 [facility] 0.4 mg 08/12/2020 12:00:00 AM EDT capsule 30 TAKE 1 CAPSULE BY MOUTH ONCE A DAY 30 MINUTES AFTER THE SAME MEAL TAKE 1 CAPSULE BY MOUTH ONCE A DAY 30 [place] NUT[place] AFTER THE SAME MEAL SOLD: 11/07/2020 [facility] 0.4 mg 08/12/2020 12:00:00 AM EDT capsule 30 TAKE 1 CAPSULE BY MOUTH ONCE A DAY 30 MINUTES AFTER THE SAME MEAL TAKE 1 CAPSULE BY MOUTH ONCE A DAY 30 [place] NUT[place] AFTER THE SAME MEAL SOLD: 12/05/2020 [...] {tablet} active Doxycycline Hyclate 100 MG eCW1 ([facility]) doxycycline hyclate 100 MG Oral Tablet Doxycycline Hyc late 100 MG Doxycycline Hyclate 100 MG 02/21/2020 12:00:00 AM EDT 1.0 {tablet} active Doxycycline Hyclate 100 MG eCW1 ([facility]) doxycycline hyclate 100 MG Oral Tablet Doxycycline Hyc late 100 MG Doxycycline Hyclate 100 MG 02/21/2020 12:00:00 AM EDT active 1 tablet eCW1 ([facility]) doxycycline hyclate 100 MG Oral Tablet Doxycycline Hyc late 100 MG Doxycycline Hyclate 100 MG 02/21/2020 12:00:00 AM EDT active 1 tablet eCW1 ([facility]) doxycycline hyclate 100 MG Oral Tablet Doxycycline Hyc late 100 MG Doxycycline Hyclate 100 MG 02/21/2020 12:00:00 AM EDT 1.0 {tablet} active Doxycycline Hyclate 100 MG eCW1 ([facility]) 100 mg 02/21/2020 12:00:00 AM EDT tablet 10 TAKE ONE TABLET BY MOUTH EVERY 12 HOURS FOR 5 DAYS TAKE ONE TABLET BY MOUTH EVERY 12 HOURS FOR 5 DAYS [facility] doxycycline hyclate 100 MG Oral Tablet Doxycycline Hyc late 100 MG Doxycycline Hyclate 100 MG 02/21/2020 12:00:00 AM EDT 1.0 {tablet} active Doxycycline Hyclate 100 MG eCW1 ([facility]) 500 mg 02/19/2020 12:00:00 AM EDT capsule [...] {tablet_at_bedtime_as_needed} active Fa motidine 20 MG eCW1 ([facility]) 10 mg 02/16/2020 12:00:00 AM EDT tablet [...] {tablet_at_bedtime_as_needed} active Fa motidine 20 MG eCW1 ([facility]) 20 mg 02/16/2020 12:00:00 AM EDT tablet [...] TABLET BY MOUTH EVERY DAY SOLD: 11/02/2019 [facility] Docusate Sodium 100 MG Oral Capsule [...] type / Coverage type Policy ID Covered constitution party ID Covered constitution party's relationship to [place] Policy [place] Plan Information NORTH [id number] SP [id number] [place] [id number] 18 [id number] [place] [facility] [place] [id number] 18 [id number] NORTH CARE MEDICAID [id number] S [id number] [place] Commercial [id number] Self [id number] [facility] Care Commercial [id number] Self [id number] [place] Medicaid/P/P Commercial [id number] Self [id number] [place]/CHP/FHP Commercial [id number] Self [id number] [place] Commercial [id number] Self [id number] [place] Medicaid/CHP/FHP Commercial [id number] Self [id number] [place] [facility] Care Commercial [id number] Self [id number] Emil Vision MKD [id number] S [id number] [place] [facility] Medicaid [id number] S [id number] (DO NOT USE) North Care Auth PCP Not MVNHC/YHC/GHC [id number] S [id number] Medicaid [id number] Wrap Claims [id number] S [id number] Dental Dentaquest MKD [id number] S [id number] Medicaid [id number] Regular Clinic Visit [id number] S [id number] [place] [id number] S [id number] ANSI-Commercial [id number] ANSI-Commercial [id number] ANSI-Commercial [id number] NORTH CARE MEDICAID [id number] S [id number] [place] [id number] S [id number] [place] Health Care Commercial [id number] Self [id number] [place] [id number] Self [id number] [place] Commercial [id number] Self [id number] [place] [facility] [place] [id number] 1 [id number] [place] [id number] 18 [id number] [place] [facility] [id number] 18 [id number] [place]/CHP/FHP Commercial [id number] Self [id number] [place]/FHP Commercial [id number] Self [id number] [facility] C[place] [facility] [place] [id number] 18 [id number] [place] Care [place] Commercial [id number] Self [id number] ANSI-Commercial [id number] North Medicaid/CHP/FHP Commercial [id number] Self [id number] ANSI-Commercial [id number] ANSI-Commercial [id number] [place]/CHP/FHP Commercial [id number] Self [id number] ANSI-Commercial [id number] [place] [facility] Care Commercial [id number] Self [id number] ANSI-Commercial [id number] [place] Commercial [id number] Self [id number] [place] [id number] Self [id number] [place] Commercial [id number] Self [id number] [place] Medicaid/CHP/FHP Commercial [id number] Self [id number] [place]/CHP/FHP Commercial [id number] Self [id number] ANSI-Commercial [id number] ANSI-Commercial [id number] ANSI-Commercial [id number] Problems, Conditions, and Diagnoses Code Display Name Description Problem Type Effective Dates Data Source(s) [id number] Male urethral stricture Male urethral stricture P roblem 11/05/2020 12:00:00 AM EST MEDENT ([facility]) D50.9 [id number] Iron deficiency anemia, unspecif ied iron deficiency anemia type Problem 10/31/2020 12:00:00 AM EST eCW1 ([facility]) [id number] Onychomycosis Onychomycosis Problem 03/19/2020 12:00:00 AM EDT MEDENT ([facility] Corns and callosities Corns and callosities Problem 03/19/2020 12:00:00 AM EDT MEDENT ([facility] [id number] Ingrowing nail Ingrowing nail Problem 01/02/2020 12:00:00 AM EDT - 03/19/2020 12:00:00 AM EDT MED[facility] ([facility] E7800 Pure hypercholesterolemia, unspecified P ure hypercholesterolemia, unspecified Diagnosis 07/22/2020 11:14:00 AM EDT [facility] I10 Essential (primary) hypertension Essential (primary) h ypertension Diagnosis 07/22/2020 11:14:00 AM EDT [facility] N419 Inflammatory disease of prostate, unspec ified Inflammatory disease of prostate, unspecified Diagnosis 07/22/2020 11:13:00 AM EDT [facility] E8342 Hypomagnesemia Hypomagnesemia Diagnosis 07/22/2020 11:13: 00 AM EDT [facility] N390 Urinary tract infection, site not specif ied Urinary tract infection, site not specified Diagnosis 07/22/2020 11:13:00 AM EDT [facility] E039 Hypothyroidism, unspecified Hypothyroidism, unspecifie d Diagnosis 07/22/2020 11:13:00 AM EDT [facility] E119 Type 2 diabetes mellitus without complic ations Type 2 diabetes mellitus without complications Diagnosis 07/22/2020 11:13:00 AM EDT [facility] D649 Anemia, unspecified Anemia, unspecified Diagnosis 0 07/22/2020 11:13:00 AM EDT [facility] E785 Hyperlipidemia, unspecified Hyperlipidemia, unspecifie d Diagnosis 07/22/2020 11:13:00 AM EDT [facility] J02.9 Acute pharyngitis, unspecified ACUTE PHARYNGITIS, UNSP ECIFIED Diagnosis 02/05/2020 10:54:00 AM EDT [facility] Surgeries/Procedures Procedure Description Date Indications Data Source(s) ARTHROCENTESIS ASPIR&/INJECTION MAJOR JT/BURSA 021 12:00:00 AM EST MEDENT ([facility]) RADEX SHOULDER COMPLETE MINIMUM 2 VIEWS 11/25/2020 12: 00:00 AM EST MEDENT ([facility]) ECHO TTHRC R-T 2D W/WOM-MODE COMPL SPEC&COLR DOP 07/22 12:00:00 AM EDT MEDENT (Jouse Duncan MD) ARTHROCENTESIS ASPIR&/INJECTION MAJOR JT/BURSA 020 12:00:00 AM EDT MEDENT ([facility] ) Influenza immunization administered or previously received 12/11/2019 12:00:00 AM EST eCW1 ([facility]) Hammertoe Proc One Toe 11/15/2019 12:00:00 AM EST [facility] ([facility] ARTHROCENTESIS ASPIR&/INJECTION MAJOR JT/BURSA 020 12:00:00 AM EST MEDENT ([facility] ) APPL MODALITY 1/> AREAS ELEC STIMJ EA 15 MIN 9 12:00:00 AM EST MEDENT ([facility] ) THERAPEUTIC PX 1/> AREAS EACH 15 MIN EXERCISES 019 12:00:00 AM EST MEDENT ([facility]) Results ID Date Data Source [id number] 07/22/2020 12:41:00 PM EDT [facility] Name Value Range Interpretation Code Description Data Urszula rce(s) Supporting Document(s) Iron [Mass/volume] in Serum or Plasma 41 UG/DL 42 - 135 L [facility] ID Date Data Source [id number] 07/22/2020 12:41:00 PM EDT [facility] Name Value Range Interpretation Code Description Data Urszula rce(s) Supporting Document(s) Magnesium [Mass/volume] in Serum or Plasma 1.9 MG/DL 1.7 - 2.2 [facility] ID Date Data Source [id number] 07/22/2020 12:41:00 PM EDT [facility] Name Value Range Interpretation Code Description Data Urszula rce(s) Supporting Document(s) [facility] Cholesterol [Mass/volume] in Serum or Plasma 145 MG/DL 131 - 200 [facility] Deprecated Triglyceride [Mass/volume] in Serum or Plasma 60 MG/DL 3 5 - 160 [facility] HDL 60 MG/DL 29 - 86 [facility] Cholesterol in LDL [Mass/volume] in Serum or Plasma by Direc t assay 77 mg/dL 65 - 175 [facility] Cholesterol.total/Cholesterol in HDL [Mass Ratio] in Serum o r Plasma 2.4 3.4 - 4.9 L [facility] LDL/HDL 1.28 1.00 - 3.55 [facility] ital CVE RISK CHOL/HDL LDL/HDLMEN: 1/2 AVERAGE 3.43 1.00 AVERAGE 4.97 3.55 2X AVERAGE 9.55 6.25 3X AVERAGE 23.99 7.99WOMEN: 1/2 AVERAGE 3.27 1.47 AVERAGE 4.44 3.22 2X AVERAGE 7.05 5.03 3X AVERAGE 11.04 6.14 ID Date Data Source [id number] 07/22/2020 12:41:00 PM EDT [facility] Name Value Range Interpretation Code Description Data Urszula rce(s) Supporting Document(s) COMPREHENSIVE METABOLIC PANEL [facility] COMPREHENSIVE METABOLIC PANEL Sodium [Moles/volume] in Serum or Plasma 141 mEq/L 134 - 153 [facility] Potassium [Moles/volume] in Serum or Plasma 4.3 mEq/L 3.6 - 5.0 [facility] Chloride [Moles/volume] in Serum or Plasma 104 mEq/L 98 - 107 [facility] Carbon dioxide, total [Moles/volume] in Serum or Plasma 26 MEQ/L 22 - 30 [facility] Glucose [Mass/volume] in Serum or Plasma 94 MG/DL 65 - 110 [facility] BUN 16 MG/DL 7 - 21 [facility] Creatinine [Mass/volume] in Serum or Plasma 0.9 MG/DL 0.7 - 1.5 [facility] BUN/CREAT 18 8 - 27 [facility] Protein [Mass/volume] in Serum or Plasma 7.3 G/DL 6.3 - 8.2 [facility] Albumin [Mass/volume] in Serum or Plasma 4.4 G/DL 3.9 - 5.0 [facility] Globulin [Mass/volume] in Serum by calculation 2.9 GM/DL 2.4 - 3.2 [facility] A/G RATIO 1.5 0.8 - 2.0 [facility] Calcium [Mass/volume] in Serum or Plasma 9.3 MG/DL 8.4 - 10.2 [facility] Bilirubin.total [Mass/volume] in Serum or Plasma 0.7 MG/DL 0.2 - 1.3 [facility] Alkaline phosphatase [Enzymatic activity/volume] in Serum or Plasma 73 U/L 38 - 126 [facility] Aspartate aminotransferase [Enzymatic activity/volume] in Serum or Plasma 19 U/L 5 - 40 [facility] Alanine aminotransferase [Enzymatic activity/volume] in Seru m or Plasma 17 U/L 7 - 56 [facility] Anion gap 3 in Serum or Plasma 11.0 mmol/L 8.0 - 16.0 [facility] AGE 59 yrs [facility] al NON-AA GFR >60 mL/min [facility] ital AFR AMER GFR >60 mL/min [facility] spital Male GFR In terprentation 20-49 [...] >32 mL/min Normal ID Date Data Source [id number] 07/22/2020 12:27:00 PM EDT [facility] Name Value Range Interpretation Code Description Data Urszula rce(s) Supporting Document(s) Cobalamin (Vitamin B12) [Mass/volume] in Serum or Plasma 545 PG/ML 232 - 1245 [facility] ID Date Data Source [id number] 07/22/2020 12:27:00 PM EDT [facility] Name Value Range Interpretation Code Description Data Urszula rce(s) Supporting Document(s) Thyrotropin [Units/volume] in Serum or Plasma by Detec tion limit <= 0.05 mIU/L 2.44 uIU/mL 0.47 - 5.01 [facility] ID Date Data Source [id number] 07/22/2020 12:27:00 PM EDT [facility] Name Value Range Interpretation Code Description Data Urszula rce(s) Supporting Document(s) Prostate specific Ag [Mass/volume] in Serum or Plasma 3.29 ng/mL 0.00 - 4.00 [facility] \\BLDo\\PSA INTERPRETA TION\\BLDx\\ The PSA assay should [...] be used interchangeably. ID Date Data Source [id number] 07/22/2020 11:53:00 AM EDT [facility] Name Value Range Interpretation Code Description Data Urszula rce(s) Supporting Document(s) Hemoglobin A1c/Hemoglobin.total in Blood 5.1 % 4.4 - 6.1 [facility] {A1]{HB] ID Date Data Source [id number] 07/22/2020 11:36:00 AM EDT [facility] Name Value Range Interpretation Code Description Data Urszula rce(s) Supporting Document(s) CBC W/AUTOMATED DIFF [facility] COMPLETE BLOOD COUNT Leukocytes [#/volume] in Blood by Automated count 7.9 10^3/uL 4.2 - 1 1.0 [facility] Erythrocytes [#/volume] in Blood by Automated count 4.47 10^6/uL 4. 50 - 6.30 L [facility] Hemoglobin [Mass/volume] in Blood 12.4 g/dL 14.0 - 16.0 L [facility] Hematocrit [Volume Fraction] of Blood by Automated count 38.9 % 4 1.0 - 51.0 L [facility] Erythrocyte mean corpuscular volume [Entitic volume] by Auto mated count 87.0 fL 80.0 - 94.0 [facility] Erythrocyte mean corpuscular hemoglobin [Entitic mass] by Automated count 27.7 pg 27.0 - 34.0 [facility] Erythrocyte mean corpuscular hemoglobin concentration [Mass/volume] by Automated count 31.9 g/dL 31.0 - 36.0 [facility] Erythrocyte distribution width [Ratio] by Automated count 13.3 % 11.5 - 14.8 [facility] Platelets [#/volume] in Blood by Automated count 225 10^3/uL 150 - 45 0 [facility] Platelet mean volume [Entitic volume] in Blood by Automated count 9.4 fL 7.4 - 10.4 [facility] Neutrophils/100 leukocytes in Blood by Automated count 69.4 % 37. 0 - 80.0 [facility] Lymphocytes/100 leukocytes in Blood by Manual count 20.6 % 25.0 - 40.0 L [facility] Monocytes/100 leukocytes in Blood by Automated count 8.2 % 3.0 - 8.0 H [facility] Eosinophils/100 leukocytes in Blood by Automated count 0.9 % 0.0 - 7.0 [facility] Basophils/100 leukocytes in Blood by Automated count 0.6 % 0.0 - 2.0 [facility] %IG 0.3 % 0.0 - 0.0 [facility] %NRBC 0.0 % 0.0 - 0.0 [facility] al Neutrophils [#/volume] in Blood by Automated count 5.48 10^3/uL 2.00 - 6.90 [facility] Lymphocytes [#/volume] in Blood by Automated count 1.63 10^3/uL 0.60 - 3.40 [facility] Monocytes [#/volume] in Blood by Automated count 0.65 10^3/uL 0.00 - 0.90 [facility] Eosinophils [#/volume] in Blood by Automated count 0.07 10^3/uL 0.00 - 0.70 [facility] Basophils [#/volume] in Blood by Automated count 0.05 10^3/uL 0.00 - 0.20 [facility] #IG 0.02 10^3/uL 0.00 - 0.10 [facility] #NRBC 0.00 10^3/uL 0.00 - 0.00 [facility] MANUAL DIFF NOT INDICATED [facility] RBC MORPH NOT INDICATED [facility] spital ID Date Data Source [id number] 04/30/2020 01:01:00 PM EDT [facility] ([facility]) Name Value Range Interpretation Code Description Data Urszula rce(s) Supporting Document(s) Color of Urine Laboratory test result [facility] ([facility]) Leukocytes Laboratory test result [facility] ([facility]) Spec [place] 1.005 [facility] ([facility]) pH of Urine by Test strip 8 [facility] NT ([facility]) Appearance of Urine Laboratory test result [facility] ([facility]) Inhouse Glucose Laboratory test result [facility] ([facility]) Protein [Presence] in Urine by Test strip Laboratory test result [facility] ([facility]) Nitrate [Presence] in Urine Laboratory test result [facility] ([facility]) Bilirubin.total [Presence] in Urine by Test strip Laboratory test res ult [facility] ([facility]) Urobilinogen Laboratory test result [facility] ([facility]) Ketones [Presence] in Urine by Test strip Laboratory test result [facility] ([facility]) Blood type and Indirect antibody screen panel - Blood Laboratory test result [facility] ([facility]) ID Date Data Source [id number] 03/06/2020 01:00:00 PM EDT [facility] Name Value Range Interpretation Code Description Data Urszula rce(s) Supporting Document(s) SARS CORONAVIRUS 2 RNA [facility] This lab was ordered by [facility] and reported by [facility]. ID Date Data Source [id number] 11/15/2019 12:49:00 PM EST [facility] (Amandeep AmezquitaP.Norberto., [...] Never Smoker completed Never S moker eCW1 ([facility]) Smoking 02/16/2020 12:00:00 AM EDT Never Smoker completed Never S moker eCW1 ([facility]) Smoking 02/16/2020 12:00:00 AM EDT Never Smoker completed Never S moker eCW1 ([facility]) Vital Signs ID Date Data Source UNK Name Value Range Interpretation Code Description Data Source(s) Oxygen saturation in Arterial blood by Pulse oximetry 93 % 93 % [facility] ([facility]) Respiratory rate 18 /min 18 /min [facility] ( [facility]) Heart rate 73 /min 73 /min [facility] ([facility]) Diastolic blood pressure 86 mm[Hg] 86 mm[Hg] [facility] ([facility]) Systolic blood pressure 135 mm[Hg] 135 mm[Hg] M EDENT ([facility]) Diastolic blood pressure 70 mm[Hg] 70 mm[Hg] eCW1 ([facility]) Systolic blood pressure 100 mm[Hg] 100 mm[Hg] e CW1 ([facility]) Body temperature 98.8 [degF] 98.8 [degF] eCW1 ( [facility]) Respiratory rate 18 /min 18 /min eCW1 ([facility]) Heart rate 79 /min 79 /min eCW1 ([facility]) Body mass index (BMI) [Ratio] 33.64 kg/m2 33.64 kg/m2 eCW1 ([facility]) Body height 74 [in_i] 74 [in_i] eCW1 ([facility]) Body weight 262 [lb_av] 262 [lb_av] eCW1 ([facility]) Oxygen saturation in Arterial blood by [...] Body weight 120.204 kg 120.204 kg [facility] ([facility]) Body weight 265.00 [lb_av] 265.00 [lb_av] MEDEN T ([facility]) Oxygen saturation in Arterial blood by Pulse oximetry 93 % 93 % [facility] ([facility]) Respiratory rate 20 /min 20 /min [facility] ( [facility]) Heart rate 67 /min 67 /min [facility] ([facility]) Diastolic blood pressure 76 mm[Hg] 76 mm[Hg] [facility] ([facility]) Systolic blood pressure 123 mm[Hg] 123 mm[Hg] M EDENT ([facility]) Diastolic blood pressure 80 mm[Hg] 80 mm[Hg] eCW1 ([facility]) Systolic blood pressure 120 mm[Hg] 120 mm[Hg] e CW1 ([facility]) Body temperature 98.8 [degF] 98.8 [degF] W1 ( [facility]) Respiratory rate 18 /min 18 /min eCW1 ([facility]) Heart rate 76 /min 76 /min eCW1 ([facility]) Body mass index (BMI) [Ratio] 33.46 kg/m2 33.46 kg/m2 [facility] ([facility]) Body height 74 [in_us] 74 [in_us] W1 ([facility]) Body weight Measured 260.6 [lb_av] 260.6 [lb_av ] W1 ([facility]) Diastolic blood pressure 80 mm[Hg] 80 mm[Hg] eCW1 ([facility]) Systolic blood pressure 118 mm[Hg] 118 mm[Hg] e CW1 ([facility]) Body temperature 98.3 [degF] 98.3 [degF] eCW1 ( [facility]) Respiratory rate 20 /min 20 /min eCW1 ([facility]) Heart rate 74 /min 74 /min eCW1 ([facility]) Body mass index (BMI) [Ratio] 32.84 kg/m2 32.84 kg/m2 eCW1 ([facility]) Body height 74 [in_us] 74 [in_us] eCW1 ([facility]) Body weight Measured 255.8 [lb_av] 255.8 [lb_av ] eCW1 ([facility]) Patient Treatment Plan of Care Planned Activity Planned Date Details Description Data Source (s) doxycycline hyclate 100 MG Oral Tablet 02/21/2020 12:00:00 AM EDT eCW1 ([facility]) doxycycline hyclate 100 MG Oral Tablet 02/21/2020 12:00:00 AM EDT eCW1 ([facility]) doxycycline hyclate 100 MG Oral Tablet 02/21/2020 12:00:00 AM EDT eCW1 ([facility]) doxycycline hyclate 100 MG Oral Tablet 02/21/2020 12:00:00 AM EDT eCW1 ([facility]) doxycycline hyclate 100 MG Oral Tablet 02/21/2020 12:00:00 AM EDT eCW1 ([facility]) doxycycline hyclate 100 MG Oral Tablet 02/21/2020 12:00:00 AM EDT eCW1 ([facility]) Famotidine 20 MG Oral Tablet 02/16/2020 12:00:00 AM EDT eCW1 ([facility]) Famotidine 20 MG Oral Tablet 02/16/2020 12:00:00 AM EDT eCW1 ([facility])
--- NOTE | 2020-12-11 21:39 | HPEPDOC ---
General Date of Admission 12/11/2020 Date of Service: Dec 11, 2020 Chief Complaint The patient is a 60-year-old male admitted with a reason for visit of Fever, Pain With Urination. Source: Patient, Old records Timing/Duration: Day(s) (2) Severity: Mild Associated Symptoms: Fever, Loss of appetite, Weakness History of Present Illness Patient is a 60 yo very pleasant male who is not a very good historian with PMH of HTN, BPH, and ureteral stricture presented to [facility] for 2 days(since Wednesday)of low grade fever, urinary retention, dysuria. He denies urinary frequency or urgency. Denies diarrhea, abdominal pain, or blood in stool. Reported last BM was around 2PM this afternoon. He denies any nausea, vomiting, chest pain, palpitation, or dyspnea. He reported generalized weakness and decreased palpitation. Denies having intercourse with men Home Medications Scheduled Aspirin (Aspirin EC) 81 Mg Tablet.dr, 81 MG PO QHS, (Reported) Atorvastatin Calcium (Atorvastatin Calcium) 10 Mg Tab, 10 MG PO DAILY, (Reported) Docusate Sodium (Docusate Sodium) 100 Mg Cap, 200 MG PO QHS, (Reported) Oxybutynin Chloride (Oxybutynin Chloride ER) 15 Mg Tab.er.24, 15 MG PO DAILY, (Reported) Sennosides/Docusate Sodium (Senna Plus Tablet) 1 Tab Tab, 25.8 MG PO QHS, (Reported) Tamsulosin HCl (Flomax) 0.4 Mg Cap, 0.4 MG PO QHS, (Reported) Scheduled PRN Ibuprofen (Ibuprofen) 800 Mg Tablet, 800 MG PO TID PRN for PAIN, (Reported) Allergies Coded Allergies: Penicillins (Verified Allergy, Intermediate, HIVES, 11/15/19) Past Medical History Medical History Essential hypertension BPH Pure hypercholesterolemia Arthritis Constipation Injury of left knee 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 diverticulosis 08/2018 Right 2nd hammer toe correction 10/2019 Family History Father: Alcoholic, Cancer (unknown type) Mother: Cancer (unknown type) Social History * Smoker: Denies Alcohol: occationally (one beer occasionally, denies binge drinking behavior) A-FIB/CHADSVASC A-FIB History Current/History of A-Fib/PAF?: No Review of Systems Constitutional: Reports: Chills, Fever Eyes: Reports: Vision change (chronic, attributed to cataract) ENT: Denies: Dysphagia Skin: Denies: Rash Pulmonary: Denies: Dyspnea Cardiovascular: Denies: Chest Pain, Palpitations Gastrointestinal: Denies: Nausea, Vomiting, Abdominal Pain, Diarrhea, C onstipation Genitourinary: Reports: Dysuria, Retention, Other Symptoms (urgency); Denies: Frequency Musculoskeletal: Denies: Back Pain (Denies) Neurological: Denies: Numbness Psych: Reports: Mood Normal (Mild mood changes per patient due to sickness) Physical Examination General Exam: Positive: Alert, No Acute Distress, Other (pleasant) Eye Exam: Positive: Conjunctiva & lids normal; Negative: Sclera icteric ENT Exam: Positive: Atraumatic, Mucous membr. moist/pink Neck Exam: Positive: Supple Chest Exam: Positive: Clear to auscultation, Normal air movement; Negative: Rales, Rhonchi, Wheezing Heart Exam: Positive: Rate Normal, Regular Rhythm, Normal S1, Normal S2 Abdomen Exam: Positive: Normal bowel sounds, Soft; Negative: Tenderness Skin Exam: Positive: Nl turgor and temperature Neuro Exam: Positive: Normal Tone Psych Exam: Positive: Mood NL, Memory Intact Other physical findings No suprapubic tenderness, no CVA tenderness Vital Signs Vital Signs Date Time Temp Pulse Resp B/P (MAP) Pulse Ox O2 Delivery O2 Flow Rate FiO2 12/11/20 19:36 99.1 84 16 148/76 96 Room Air Laboratory Data Labs 24H Laboratory Tests 2 12/11/20 16:53: Urine Color YELLOW, Urine Appearance CLOUDYH, Urine pH 5.0, Urine Specific [place] 1.010, Urine Protein 1+H, Urine Glucose (UA) NEGATIVE, Urine Ketones TRACEH, Urine Blood 1+H, Urine Nitrite POSITIVEH, Urine Bilirubin NEGATIVE, Urine Urobilinogen 0.2, Urine Leukocyte Esterase 3+H, Urine WBC (Auto) TNTCH, Urine RBC (Auto) 10H, Urine Hyaline Casts (Auto) 0, Urine Bacteria (Auto) 3+H, Urine Squamous Epithelial Cells 1, Urine Mucus (Auto) SMALL, Urine Sperm (Auto) 12/11/20 17:09: Immature Granulocyte % (Auto) 0.5, Neutrophils (%) (Auto) 85.8H, Lymphocytes (%) (Auto) 7.1L, Monocytes (%) (Auto) 6.3, Eosinophils (%) (Auto) 0.1, Basophils (%) (Auto) 0.2, Neutrophils # (Auto) 15.4H, Lymphocytes # (Auto) 1.3L, Monocytes # (Auto) 1.1H, Eosinophils # (Auto) 0.0, Basophils # (Auto) 0.0, Nucleated Red Blood Cells % (auto) 0.0, Total Bilirubin 1.4H, Direct Bilirubin 0.3H, Aspartate Amino Transf (AST/SGOT) 36, Alanine Aminotransferase (ALT/SGPT) 27, Alkaline Phosphatase 85, Total Protein 7.0, Albumin 3.5, Albumin/Globulin Ratio 1.0 12/11/20 17:24: POC Glucose (Misc Panel) 92, POC Sodium (Misc Panel) 136, POC Potassium (Misc Panel) 4.2, POC Chloride (Misc Panel) 101, POC Total CO2 (Misc Panel) 27.0, POC Blood Urea Nitrogen (Misc Panel 19, POC Ionized Calcium (Misc Panel) 4.5, POC Creatinine (Misc Panel) 1.0, POC Hematocrit (Misc Panel) 42.0 12/11/20 18:53: Lactic Acid Level 0.8 12/11/20 19:32: Coronavirus (COVID-19)(PCR) NEGATIVE, Influenza Type A (RT-PCR) NEGATIVE, Influenza Type B (RT-PCR) NEGATIVE, Respiratory Syncytial Virus (PCR) NEGATIVE CBC/BMP Laboratory Tests 12/11/20 17:09 Microbiology Microbiology 12/11/20 Blood Culture, Received Pending 12/11/20 Blood Culture, Received Pending 12/11/20 Urine Culture, Received Pending Assessment/Plan 1. UTI -start Ceftriaxone IV -patient denies diarrhea or abdominal pain -lactic acid=0.8 -trend CBC, BMP, I&O, IV NS 60ml/hr -tylenol, antiemetics PRN 2. History of essential hypertension -not on medication outpatient -Monitor vital signs 3. BPH -Cont home meds 4. Cholelithiasis, asymptomatic. -Gallstones with no evidence of cholecystitis noted on CT abd/pelvis. Conservative care 5. Mild splenomegaly -mild splenomegaly with a maximum span of 13 cm noted without focal abnormalities -consider outpatient follow up 6. Prostatis -Prostatis noted on CT abd/pelvis -GC&Chlamydia neg -may be due to urinary pathogens -patient denies abdominal pain or diarrhea -follows urology at [place] 7. Left inguinal hernia -large left inguinal hernia with demonstrated within the herniated contents concerning for possible incarceration. -ER contacted Dr. Deleon, and Dr. Deleon said the risk of bowel incarceration is low given no abdominal pain -patient denies abdominal pain, voiced last BM was this afternoon, denies blood in stool DVT prophylaxis: lovenox Plan / VTE VTE Prophylaxis Ordered?: Yes GME ATTESTATION GME ATTESTATION My faculty preceptor for this patient encounter was physically present during the encounter and was fully available. All aspects of the patient interview, examination, medical decision making process, and medical care plan development were reviewed and approved by the faculty preceptor. The faculty preceptor is aware and concurs with the plan as stated in the body of this note and will attest to such by his/her cosignature. ATTENDING NOTE I, Luis E Turner DO, performed a history and physical examination of the patient and discussed his management with the resident, Frank Gilmore DO. I reviewed the resident's note and agree with the documented findings and plan of care. FRANK GILMORE DO Dec 11, 2020 21:39 LUIS E TURNER DO Dec 12, 2020 07:15
[2020-12-11] MEDS: ENOXAPARIN 40MG/0.4ML SYRINGE (J1650 PER 10MG) SC SCH (21:57)
[2020-12-11] MEDS: TAMSULOSIN 0.4 MG CAP PO SCH (21:57)
[2020-12-11] MEDS: ASPIRIN 81 MG ENTERIC TAB PO SCH (21:57)
[2020-12-11] MEDS: NS 1,000 ML IV SCH (21:58)
[2020-12-11 22:28] LABS: CHLAMYDIA DNA AMPLIFICATION NEGATIVE (NEGATIVE); GC DNA AMPLIFICATION NEGATIVE (NEGATIVE)
[2020-12-11 22:30] VITALS: BP 129/71
[2020-12-11] MEDS ORDERED: METOCLOPRAMIDE 5 MG TAB PO PRN (23:30)
[2020-12-12 06:00] VITALS: BP 128/80
[2020-12-12] MEDS: cefTRIAXone SOD 2 GM in D5W MINI-BAG PLUS 50 ML IV SCH (06:06)
[2020-12-12 06:41] LABS: HEMATOCRIT 36.4 % (42.0-52.0); HEMOGLOBIN 11.6 g/dl (13.5-17.5); MEAN CORPUSCULAR HEMOGLOBIN 28.1 pg (27.0-33.0); MEAN CORPUSCULAR HGB CONC 31.9 g/dl (32.0-36.5); MEAN CORPUSCULAR VOLUME 88.1 fl (80.0-96.0); PLATELET COUNT, AUTOMATED 178 10^3/uL (150-450); RED BLOOD COUNT 4.13 10^6/uL (4.30-6.10); WHITE BLOOD COUNT 16.2 10^3/uL (4.0-10.0)
[2020-12-12 07:14] LABS: BLOOD UREA NITROGEN 15 MG/DL (7-18); CALCIUM LEVEL 8.2 MG/DL (8.8-10.2); CARBON DIOXIDE LEVEL 25 MEQ/L (21-32); CHLORIDE LEVEL 105 MEQ/L (98-107); CREATININE FOR GFR 0.87 MG/DL (0.70-1.30); GLOMERULAR FILTRATION RATE > 60.0 (>49); GLUCOSE, FASTING 90 MG/DL (70-100); POTASSIUM SERUM 3.8 MEQ/L (3.5-5.1); SODIUM LEVEL 137 MEQ/L (136-145)
[2020-12-12 08:55] VITALS: BP 118/72
[2020-12-12] MEDS: oxyBUTYnin *DITROPAN XL* 5 MG TABCR PO SCH (09:23)
[2020-12-12] MEDS: ATORVASTATIN 10 MG TAB PO SCH (09:23)
[2020-12-12] MEDS ORDERED: AZITHROMYCIN 250MG TABLET PO ONE (11:30)
--- NOTE | 2020-12-12 13:00 | IPNPDOC ---
Text Note Date of Service The patient was seen on 12/12/20. NOTE Subjective: Patient continues to complain of dysuria. He stated that he meliton nues to have chills. Objective: GENERAL APPEARANCE: NAD HEENT: no scleral icterus, no JVD, EOMI CARDIOVASCULAR: S1S2 LUNGS: CTA ABDOMEN: soft & not tender w palpitation MUSCULOSKELETAL: no cyanosis, no swelling INTEGUMENT: no generalized pallor NEUROLOGICAL: cranial nerve function from 2-12 intact intact, follows commands, speech not dysarthric Assessment and plan Patient is 60 years old male with past medical history of BPH, UTI, urethral stricture, hypertension, hyperlipidemia presented to the hospital with chills and dysuria SIRS Secondary to UTI Patient had fever of 100.3, leukocytosis of 18 on admission Blood culture, urine culture Ceftriaxone IV Patient had chronic UTI, urethral stricture. He received treatment with fluoroquinolones, concern for bacterial resistances. Added azithromycin for possible prostatitis. UTI/prostatitis See above Constipation Continue laxatives Hypertension Blood pressures under control BPH Follow-up with urologist in the outpatient settings Left inguinal hernia No surgical intervention indicated for now VS,Fishbone, I+O VS, Fishbone, I+O Laboratory Tests 12/11/20 17:09 12/12/20 06:23 Vital Signs Date Time Temp Pulse Resp B/P (MAP) Pulse Ox O2 Delivery O2 Flow Rate FiO2 12/12/20 08:55 98.2 62 20 118/72 (87) 96 Room Air I&O- Last 24 Hours up to 6 AM 12/12/20 06:00 Intake Total 1200 ml Output Total 375 ml Balance 825 ml BRANDON COHEN DO Dec 12, 2020 13:00
[2020-12-12] MEDS: SENNA 8.6 MG TAB (SENOKOT) PO SCH ×2 (13:18→21:02)
[2020-12-12 14:00] VITALS: BP 121/91
[2020-12-12] MEDS: NS 1,000 ML IV SCH (14:49)
[2020-12-12 20:34] VITALS: BP 112/75
[2020-12-12] MEDS ORDERED: SENNA 8.6 MG TAB (SENOKOT) PO SCH (21:00)
[2020-12-12] MEDS ORDERED: DOCUSATE SODIUM 100MG CAPSULE PO SCH ×2 (21:00)
[2020-12-12] MEDS: TAMSULOSIN 0.4 MG CAP PO SCH (21:01)
[2020-12-12] MEDS: ASPIRIN 81 MG ENTERIC TAB PO SCH (21:01)
[2020-12-12] MEDS: ENOXAPARIN 40MG/0.4ML SYRINGE (J1650 PER 10MG) SC SCH (21:01)
[2020-12-13 05:57] LABS: HEMATOCRIT 34.3 % (42.0-52.0); HEMOGLOBIN 10.8 g/dl (13.5-17.5); MEAN CORPUSCULAR HEMOGLOBIN 27.9 pg (27.0-33.0); MEAN CORPUSCULAR HGB CONC 31.5 g/dl (32.0-36.5); MEAN CORPUSCULAR VOLUME 88.6 fl (80.0-96.0); PLATELET COUNT, AUTOMATED 196 10^3/uL (150-450); RED BLOOD COUNT 3.87 10^6/uL (4.30-6.10); WHITE BLOOD COUNT 8.9 10^3/uL (4.0-10.0)
[2020-12-13] MEDS: NS 1,000 ML IV SCH (05:59)
[2020-12-13] MEDS: cefTRIAXone SOD 2 GM in D5W MINI-BAG PLUS 50 ML IV SCH (05:59)
[2020-12-13 06:00] VITALS: BP 128/81
[2020-12-13 06:27] LABS: BLOOD UREA NITROGEN 15 MG/DL (7-18); CALCIUM LEVEL 7.7 MG/DL (8.8-10.2); CARBON DIOXIDE LEVEL 26 MEQ/L (21-32); CHLORIDE LEVEL 107 MEQ/L (98-107); CREATININE FOR GFR 0.67 MG/DL (0.70-1.30); GLOMERULAR FILTRATION RATE > 60.0 (>49); GLUCOSE, FASTING 95 MG/DL (70-100); SODIUM LEVEL 141 MEQ/L (136-145)
[2020-12-13] MEDS: SENNA 8.6 MG TAB (SENOKOT) PO SCH (07:53)
[2020-12-13] MEDS: oxyBUTYnin *DITROPAN XL* 5 MG TABCR PO SCH (08:54)
[2020-12-13] MEDS: ATORVASTATIN 10 MG TAB PO SCH (08:54)
[2020-12-13] MEDS ORDERED: AZITHROMYCIN 250MG TABLET PO SCH (09:00)
[2020-12-13] MEDS ORDERED: SENOKOT S TAB PO SCH (09:00)
[2020-12-13] MEDS ORDERED: CEPH500T PO (10:11)
--- NOTE | 2020-12-13 13:29 | IPNPDOC ---
Text Note Date of Service The patient was seen on 12/13/20. NOTE Subjective: Patient continues to complain of dysuria. He stated that he meliton nues to have chills. Objective: GENERAL APPEARANCE: NAD HEENT: no scleral icterus, no JVD, EOMI CARDIOVASCULAR: S1S2 LUNGS: CTA ABDOMEN: soft & not tender w palpitation MUSCULOSKELETAL: no cyanosis, no swelling INTEGUMENT: no generalized pallor NEUROLOGICAL: cranial nerve function from 2-12 intact intact, follows commands, speech not dysarthric Assessment and plan Patient is 60 years old male with past medical history of BPH, UTI, urethral stricture, hypertension, hyperlipidemia presented to the hospital with chills and dysuria SIRS Secondary to UTI Patient had fever of 100.3, leukocytosis of 18 on admission Blood culture, urine culture Ceftriaxone IV Patient had chronic UTI, urethral stricture. He received treatment with fluoroquinolones, concern for bacterial resistances. Added azithromycin for possible prostatitis. UTI/prostatitis See above Constipation Continue laxatives Hypertension Blood pressures under control BPH Follow-up with urologist in the outpatient settings Left inguinal hernia No surgical intervention indicated for now VS,Fishbone, I+O VS, Fishbone, I+O Laboratory Tests 12/13/20 05:28 Vital Signs Date Time Temp Pulse Resp B/P (MAP) Pulse Ox O2 Delivery O2 Flow Rate FiO2 12/13/20 06:00 98.1 74 20 128/81 (97) 99 Room Air I&O- Last 24 Hours up to 6 AM 12/13/20 06:00 Intake Total 3480 ml Output Total 2945 ml Balance 535 ml BRANDON COHEN DO Dec 13, 2020 13:29
--- NOTE | 2020-12-13 13:43 | DS.PDOC ---
Discharge Summary General Date of Admission Dec 11, 2020 at 20:35 Date of Discharge 12/13/20 Discharge Summary PROCEDURES PERFORMED DURING STAY: [None]. ADMITTING DIAGNOSES: SIRS UTI/prostatitis Constipation Hypertension BPH Left inguinal hernia DISCHARGE DIAGNOSES: SIRS UTI/prostatitis Constipation Hypertension BPH Left inguinal hernia COMPLICATIONS/CHIEF COMPLAINT: Cystitis,Fever,Prostatitis. HISTORY OF PRESENT ILLNESS: Patient is 60 years old male with past medical history of BPH, UTI, urethral stricture, hypertension, hyperlipidemia presented to the hospital with chills and dysuria HOSPITAL COURSE: During the hospital stay the following issues addressed Sepsis Secondary to UTI Patient had fever of 100.3, leukocytosis of 18 on admission Blood culture negative Ceftriaxone IV Patient had chronic UTI, urethral stricture. Urine culture positive for Klebsiella oxytocia UTI/prostatitis See above Constipation Continue laxatives Hypertension Blood pressures under control BPH Follow-up with urologist in the outpatient settings Left inguinal hernia No surgical intervention indicated for now DISCHARGE MEDICATIONS: Please see below. ALLERGIES: Please see below. PHYSICAL EXAMINATION ON DISCHARGE: VITAL SIGNS: Please see below. GENERAL APPEARANCE: NAD HEENT: no scleral icterus, no JVD, EOMI CARDIOVASCULAR: S1S2 LUNGS: CTA ABDOMEN: soft & not tender w palpitation MUSCULOSKELETAL: no cyanosis, no swelling INTEGUMENT: no generalized pallor NEUROLOGICAL: cranial nerve function from 2-12 intact intact, follows commands, speech not dysarthric LABORATORY DATA: Please see below. PROGNOSIS: Fair ACTIVITY: [As tolerated]. DIET: Regular DISCHARGE PLAN: Home ITEMS TO FOLLOWUP ON ON OUTPATIENT: Follow-up with urologist in 3-5 days DISCHARGE CONDITION: [Stable]. TIME SPENT ON DISCHARGE: 40minutes. Vital Signs/I&Os Vital Signs Date Time Temp Pulse Resp B/P (MAP) Pulse Ox O2 Delivery O2 Flow Rate FiO2 12/13/20 06:00 98.1 74 20 128/81 (97) 99 Room Air I&O- Last 24 Hours up to 6 AM 12/13/20 06:00 Intake Total 3480 ml Output Total 2945 ml Balance 535 ml Laboratory Data Labs 24H Laboratory Tests 2 12/13/20 05:28: Nucleated Red Blood Cells % (auto) 0.0, Anion Gap 8, Glomerular Filtration Rate > 60.0, Calcium Level 7.7L CBC/BMP Laboratory Tests 12/13/20 05:28 Microbiology Microbiology 12/11/20 Blood Culture - Preliminary, Resulted No growth after 24 hours . All specim... 12/11/20 Blood Culture - Preliminary, Resulted No growth after 24 hours . All specim... 12/11/20 Urine Culture - Final, Complete Klebsiella Oxytoca Discharge Medications Scheduled Aspirin (Aspirin EC) 81 Mg Tablet.dr, 81 MG PO QHS, (Reported) Atorvastatin Calcium (Atorvastatin Calcium) 10 Mg Tab, 10 MG PO DAILY, (Reported) Cephalexin (Cephalexin) 500 Mg Tablet, 500 MG PO TID Docusate Sodium (Docusate Sodium) 100 Mg Cap, 200 MG PO QHS, (Reported) Oxybutynin Chloride (Oxybutynin Chloride ER) 15 Mg Tab.er.24, 15 MG PO DAILY, (Reported) Sennosides/Docusate Sodium (Senna Plus Tablet) 1 Tab Tab, 25.8 MG PO QHS, (Reported) Tamsulosin HCl (Flomax) 0.4 Mg Cap, 0.4 MG PO QHS, (Reported) Scheduled PRN Ibuprofen (Ibuprofen) 800 Mg Tablet, 800 MG PO TID PRN for PAIN, (Reported) Allergies Coded Allergies: Penicillins (Verified Allergy, Intermediate, HIVES, 11/15/19) BRANDON COHEN DO Dec 13, 2020 13:43
[2021-12-12] MEDS ORDERED: SENOKOT S TAB PO SCH (12:30)
== END 2020-12-13 14:13 | disposition home or self-care (01) | DRG 463 ==
LOC: M ED 16:00 → M ED INP 20:35 → M MS5PR 22:30
PROVIDERS: ADMIT Internal Medicine; ATTEND Internal Medicine
DX: N39.0 Urinary tract infection, site not specified (principal); I10 Essential (primary) hypertension; N41.9 Inflammatory disease of prostate, unspecified; K80.20 Calculus of gallbladder without cholecystitis without obstruction; N40.0 Benign prostatic hyperplasia without lower urinary tract symptoms; K40.90 Unilateral inguinal hernia, without obstruction or gangrene, not specified as recurrent; E78.5 Hyperlipidemia, unspecified; B96.1 Klebsiella pneumoniae [K. pneumoniae] as the cause of diseases classified elsewhere; K59.00 Constipation, unspecified; Z79.82 Long term (current) use of aspirin; Z79.899 Other long term (current) drug therapy; Z88.0 Allergy status to penicillin; M19.90 Unspecified osteoarthritis, unspecified site

== ENCOUNTER → 2020-12-11 | Outpatient (CLI) | payer OTHER ==
[~2020-12-11] MED LIST changes: +ASPI81TA26 PO; +CEPH500T PO; -DOCU100C16; +DOCU100C16 PO; +IBUP80TA PO; +OXYB15TA14 PO
== END ==
LOC: M LABSMTC 11:01
PROVIDERS: ATTEND Pediatrics
DX: Z20.822 Contact with and (suspected) exposure to COVID-19 (principal)
CPT/HCPCS: C9803; U0003

== ENCOUNTER → 2021-01-14 | Outpatient (REF) | payer OTHER ==
[~2021-01-14] MED LIST changes: +ASPI81TA26 PO; +CEPH500T PO; +IBUP80TA PO; +OXYB15TA14 PO
[2021-01-14 14:23] LABS: APPEARANCE, URINE HAZY (CLEAR); BACTERIA, URINE AUTO 1+ (NEGATIVE); BILIRUBIN, URINE AUTO NEGATIVE (NEGATIVE); BLOOD, URINE BLOOD 1+ (NEGATIVE); COLOR, URINE STRAW (YELLOW); GLUCOSE, URINE (UA) AUTO NEGATIVE (NEGATIVE); KETONE, URINE AUTO NEGATIVE (NEGATIVE); LEUKOCYTE ESTERASE, URINE AUTO 3+ (NEGATIVE); MUCUS, URINE SMALL (NEGATIVE); NITRITE, URINE AUTO NEGATIVE (NEGATIVE); PROTEIN, URINE AUTO NEGATIVE (NEGATIVE); RBC, URINE AUTO 6 /HPF (0-3); SPECIFIC GRAVITY URINE AUTO 1.005 (1.002-1.035); SQUAMOUS EPITHELIAL CELL UR AU 0 /HPF (0-6); UROBILINOGEN, URINE AUTO 0.2 mg/dL (0.0-2.0); WBC, URINE AUTO 131 /HPF (0-3)
== END ==
LOC: M SFHCPLAZ 14:06
PROVIDERS: ATTEND Physician Assistant
DX: R30.0 Dysuria (principal)

== ENCOUNTER → 2021-05-22 | Outpatient (CLI) | payer OTHER ==
[2021-05-22 11:09] LABS: HEMATOCRIT 42.2 % (42.0-52.0); HEMOGLOBIN 13.1 g/dl (13.5-17.5); MEAN CORPUSCULAR HEMOGLOBIN 28.6 pg (27.0-33.0); MEAN CORPUSCULAR VOLUME 92.1 fl (80.0-96.0); PLATELET COUNT, AUTOMATED 220 10^3/uL (150-450); RED BLOOD COUNT 4.58 10^6/uL (4.30-6.10); WHITE BLOOD COUNT 8.3 10^3/uL (4.0-10.0)
[2021-05-22 11:23] LABS: HEMOGLOBIN A1c 5.5 %
[2021-05-22 11:43] LABS: ALBUMIN 3.8 GM/DL (3.2-5.2); ALT/SGPT 31 U/L (12-78); BILIRUBIN,TOTAL 0.7 MG/DL (0.2-1.0); BLOOD UREA NITROGEN 15 MG/DL (7-18); CALCIUM LEVEL 8.5 MG/DL (8.8-10.2); CARBON DIOXIDE LEVEL 33 MEQ/L (21-32); CHLORIDE LEVEL 106 MEQ/L (98-107); CHOLESTEROL LEVEL 150 MG/DL (<200); CHOLESTEROL RISK RATIO 2.142 (<5); FERRITIN 166 NG/ML (26-388); GLOMERULAR FILTRATION RATE > 60.0 (>49); GLUCOSE, FASTING 86 MG/DL (70-100); HDL CHOLESTEROL 70 MG/DL (>40); IRON (FE) 51 UG/DL (65-175); LDL CHOLESTEROL 73 MG/DL (<100); NON-HDL-C 80 MG/DL; PERCENT SATURATION 22.2 % (19.7-50.0); POTASSIUM SERUM 4.2 MEQ/L (3.5-5.1); SODIUM LEVEL 140 MEQ/L (136-145); TOTAL IRON BINDING CAPACITY 230 UG/DL (250-450); TOTAL PROTEIN 6.9 GM/DL (6.4-8.2); TRIGLYCERIDES LEVEL 37 MG/DL (<150)
== END ==
LOC: M PLALAB 08:11
PROVIDERS: ATTEND Nurse Practitioner Adult Health
DX: E78.00 Pure hypercholesterolemia, unspecified (principal); I10 Essential (primary) hypertension; Z13.1 Encounter for screening for diabetes mellitus

== ENCOUNTER → 2021-11-04 | Outpatient (CLI) | payer OTHER | LOC: M PLALAB 08:27 | PROVIDERS: ATTEND Specialist | DX: Z12.5 Encounter for screening for malignant neoplasm of prostate (principal) ==

== ENCOUNTER → 2021-11-04 | Outpatient (CLI) | payer OTHER ==
[2021-11-04 10:11] LABS: HEMATOCRIT 42.1 % (42.0-52.0); HEMOGLOBIN 13.6 g/dl (13.5-17.5); MEAN CORPUSCULAR HEMOGLOBIN 28.4 pg (27.0-33.0); MEAN CORPUSCULAR HGB CONC 32.3 g/dl (32.0-36.5); MEAN CORPUSCULAR VOLUME 87.9 fl (80.0-96.0); PLATELET COUNT, AUTOMATED 252 10^3/uL (150-450); RED BLOOD COUNT 4.79 10^6/uL (4.30-6.10); WHITE BLOOD COUNT 18.1 10^3/uL (4.0-10.0)
[2021-11-04 10:38] LABS: BLOOD UREA NITROGEN 20 MG/DL (7-18); GLUCOSE, FASTING 122 MG/DL (70-100)
[2021-11-04 10:39] LABS: ALT/SGPT 25 U/L (12-78); BILIRUBIN,TOTAL 0.9 MG/DL (0.2-1.0); CALCIUM LEVEL 9.3 MG/DL (8.8-10.2); CARBON DIOXIDE LEVEL 23 MEQ/L (21-32); CHLORIDE LEVEL 107 MEQ/L (98-107); GLOMERULAR FILTRATION RATE > 60.0 (>49); IRON (FE) 34 UG/DL (65-175); POTASSIUM SERUM 4.4 MEQ/L (3.5-5.1); SODIUM LEVEL 139 MEQ/L (136-145); TOTAL PROTEIN 7.6 GM/DL (6.4-8.2)
[2021-11-04 10:47] LABS: HEMOGLOBIN A1c 5.2 %
== END ==
LOC: M PLALAB 08:29
PROVIDERS: ATTEND Nurse Practitioner Adult Health
DX: Z13.1 Encounter for screening for diabetes mellitus (principal); I10 Essential (primary) hypertension

== ENCOUNTER → 2022-01-14 | Outpatient (CLI) | payer OTHER | LOC: M PLAIMG 15:09 | PROVIDERS: ATTEND Physician Assistant | DX: M51.16 Intervertebral disc disorders with radiculopathy, lumbar region (principal); M51.26 Other intervertebral disc displacement, lumbar region; M51.27 Other intervertebral disc displacement, lumbosacral region ==

== ENCOUNTER → 2022-01-26 | Outpatient (CLI) | payer OTHER | LOC: M PLALAB 12:05 | PROVIDERS: ATTEND Physician Assistant | DX: R97.20 Elevated prostate specific antigen [PSA] (principal) ==

== ENCOUNTER → 2022-02-20 | Outpatient (REF) | payer OTHER | LOC: M LAB REF 16:44 | PROVIDERS: ATTEND Physician Assistant | DX: J06.9 Acute upper respiratory infection, unspecified (principal) ==

== ENCOUNTER 2022-02-21 22:11 | Emergency (ER) | payer OTHER ==
[~2022-02-21] VITALS: Ht 188 cm; Wt 118.2 kg
[2022-02-21 22:11] VITALS: BP 139/93
[2022-02-22] MEDS ORDERED: PERCOCET 5MG/325MG TAB PO ONE (00:10)
[2022-02-22] MEDS ORDERED: BOOSTRIX/ADACEL VACCINE (DIPHTH/PERTUSS/ACELL/TETANUS) 0.5ML SYR IM ONE (00:20)
== END 2022-02-22 02:16 | disposition home or self-care (01) ==
LOC: M ED 22:11
DX: S62.613A Displaced fracture of proximal phalanx of left middle finger, initial encounter for closed fracture (principal); S62.617A Displaced fracture of proximal phalanx of left little finger, initial encounter for closed fracture; S62.615A Displaced fracture of proximal phalanx of left ring finger, initial encounter for closed fracture; W01.0XXA Fall on same level from slipping, tripping and stumbling without subsequent striking against object, initial encounter; I10 Essential (primary) hypertension; M54.50 Low back pain, unspecified; R51.9 Headache, unspecified; Z87.448 Personal history of other diseases of urinary system; Z88.0 Allergy status to penicillin; Y92.009 Unspecified place in unspecified non-institutional (private) residence as the place of occurrence of the external cause; Y93.9 Activity, unspecified; Y99.9 Unspecified external cause status; Z79.82 Long term (current) use of aspirin; Z79.899 Other long term (current) drug therapy

== ENCOUNTER → 2022-03-03 | Outpatient (CLI) | payer OTHER | LOC: M SOG 08:22 | PROVIDERS: ATTEND Physician Assistant | DX: S62.619D Displaced fracture of proximal phalanx of unspecified finger, subsequent encounter for fracture with routine healing (principal) ==

== ENCOUNTER → 2022-03-12 | Outpatient (CLI) | payer OTHER | LOC: M SOG 08:40 | PROVIDERS: ATTEND Physician Assistant | DX: S62.617D Displaced fracture of proximal phalanx of left little finger, subsequent encounter for fracture with routine healing (principal) ==

== ENCOUNTER → 2022-04-21 | Outpatient (CLI) | payer OTHER | LOC: M SOG 08:03 | PROVIDERS: ATTEND Orthopaedic Surgery Hand Surgery | DX: S62.617D Displaced fracture of proximal phalanx of left little finger, subsequent encounter for fracture with routine healing (principal) ==

== ENCOUNTER → 2022-08-05 | Outpatient (REF) | payer OTHER ==
[2022-08-05 20:37] LABS: APPEARANCE, URINE MANUAL CLEAR (CLEAR); COLOR, URINE MANUAL LT YELLOW (YELLOW); SPECIFIC GRAVITY,URINE MANUAL 1.005 (1.002-1.035)
[2022-08-05 20:38] LABS: BILIRUBIN, URINE MANUAL NEGATIVE (NEGATIVE); BLOOD URINE MANUAL NEGATIVE (NEGATIVE); GLUCOSE, URINE (UA) MANUAL NEGATIVE (NEGATIVE); KETONE, URINE MANUAL NEGATIVE (NEGATIVE); LEUKOCYTE ESTERASE, URINE MAN POSITIVE (NEGATIVE); NITRITE, URINE MANUAL NEGATIVE (NEGATIVE); PROTEIN, URINE MANUAL NEGATIVE (NEGATIVE); UROBILINOGEN, URINE MANUAL NORMAL (NORMAL)
[2022-08-05 21:06] LABS: BACTERIA, URINE SMALL AMOUNT; HYALINE CAST, URINE NONE SEEN /lpf (0-1); RBC, URINE NONE SEEN /hpf (0-3); SQUAMOUS EPITHELIAL CELL URINE SMALL AMOUNT /hpf (SMALL AMT)
== END ==
LOC: M LAB REF 17:25
PROVIDERS: ATTEND Physician Assistant
DX: N39.0 Urinary tract infection, site not specified (principal)

== ENCOUNTER → 2022-08-07 | Outpatient (CLI) | payer OTHER | LOC: M PLALAB 11:53 | PROVIDERS: ATTEND Physician Assistant | DX: R97.20 Elevated prostate specific antigen [PSA] (principal) ==

== ENCOUNTER → 2022-10-28 | Outpatient (CLI) | payer OTHER ==
[2022-10-28 17:52] LABS: BLOOD UREA NITROGEN 15 MG/DL (9-23); GLOMERULAR FILTRATION RATE > 60.0 (>49)
== END ==
LOC: M PLALAB 15:46
PROVIDERS: ATTEND Orthopaedic Surgery Hand Surgery
DX: M25.532 Pain in left wrist (principal)

== ENCOUNTER → 2022-12-03 | Outpatient (CLI) | payer OTHER ==
[~2022-12-03] MED LIST changes: +PROHANCE 279.3MG/ML 15ML VIAL ONE; +PROHANCE 279.3MG/ML 5ML VIAL ONE
== END ==
LOC: M PLAIMG 13:19
PROVIDERS: ATTEND Orthopaedic Surgery Hand Surgery
DX: M25.532 Pain in left wrist (principal)
CPT/HCPCS: 73223; A9576

== ENCOUNTER → 2022-12-15 | Outpatient (REF) | payer OTHER ==
[~2022-12-15] MED LIST changes: -PROHANCE 279.3MG/ML 15ML VIAL ONE; -PROHANCE 279.3MG/ML 5ML VIAL ONE
== END ==
LOC: M LAB REF 16:22
PROVIDERS: ATTEND Physician Assistant
DX: R05.9 Cough, unspecified (principal)

== ENCOUNTER 2023-03-03 07:18 | Day surgery (SDC) | payer OTHER ==
[~2023-03-03] VITALS: Ht 188 cm; Wt 115.7 kg
[~2023-03-03 07:18] MED LIST changes: +ACETYLCHOLINE OPHTH SOLN 1% 2ML (MIOCHOL-E) As Ordered ONE; +BSS IRRIG/VANCO(10MG)/TOBRA(5MG)/EPINEPH(1:1000-0.5CC)500ML BAG-ORONLY IR ONE; +CYCLOPENTOLATE 1% OPHTH SOLN 2ML BTL OS SCH; +DUOVISC (0.50ML VISCOAT/0.85ML PROVISC) OPHTH KIT As Ordered ONE; +FLAX1CAP5 PO; +GNP250TA9 PO; +LIDOCAINE 1% SDV 5ML VIAL As Ordered ONE; +LIDOCAINE 3.5 % 1ML OPHTH TOPICAL GEL OU ONE; +MULT-90 PO; +OFLOXACIN 0.3 % (OCUFLOX) OPTH SOL 5ML OS ONE; +OMEG350C PO; +OMEGCAP9 PO; +PHENYLEPHRINE 10% OPHTH SOL 5ML OS PRN; +PHENYLEPHRINE 2.5% OPHTH SOL 2ML OS SCH; +TROPICAMIDE 1% OPHTH SOLN 15ML OS SCH; +XALA0.007 OU
[2023-03-03] MEDS ORDERED: MIDAZOLAM INJ 2MG/2ML VIAL As Ordered ONE (09:10)
[2023-03-03] MEDS ORDERED: fentaNYL 100 MCG/2 ML INJECTION As Ordered ONE (09:10)
[2023-03-03 11:17] VITALS: BP 148/79
== END 2023-03-03 14:23 | disposition home or self-care (01) ==
LOC: M SDC 07:18
PROVIDERS: ATTEND Ophthalmology
DX: H25.12 Age-related nuclear cataract, left eye (principal); H40.812 Glaucoma with increased episcleral venous pressure, left eye; R51.9 Headache, unspecified; N40.0 Benign prostatic hyperplasia without lower urinary tract symptoms; Z88.0 Allergy status to penicillin; E78.5 Hyperlipidemia, unspecified; F32.A Depression, unspecified; Z79.82 Long term (current) use of aspirin; Z79.899 Other long term (current) drug therapy
CPT/HCPCS: 66991; C1783; J2250; J3010; V2632

== ENCOUNTER → 2023-04-09 | Outpatient (CLI) | payer OTHER ==
[~2023-04-09] MED LIST changes: -ACETYLCHOLINE OPHTH SOLN 1% 2ML (MIOCHOL-E) As Ordered ONE; -BSS IRRIG/VANCO(10MG)/TOBRA(5MG)/EPINEPH(1:1000-0.5CC)500ML BAG-ORONLY IR ONE; -CYCLOPENTOLATE 1% OPHTH SOLN 2ML BTL OS SCH; -DUOVISC (0.50ML VISCOAT/0.85ML PROVISC) OPHTH KIT As Ordered ONE; -LIDOCAINE 1% SDV 5ML VIAL As Ordered ONE; -LIDOCAINE 3.5 % 1ML OPHTH TOPICAL GEL OU ONE; -OFLOXACIN 0.3 % (OCUFLOX) OPTH SOL 5ML OS ONE; -PHENYLEPHRINE 10% OPHTH SOL 5ML OS PRN; -PHENYLEPHRINE 2.5% OPHTH SOL 2ML OS SCH; -TROPICAMIDE 1% OPHTH SOLN 15ML OS SCH
== END ==
LOC: M SOG 09:00
PROVIDERS: ATTEND Orthopaedic Surgery
DX: M25.512 Pain in left shoulder (principal); M25.511 Pain in right shoulder

== ENCOUNTER → 2023-05-12 | Outpatient (CLI) | payer OTHER ==
[2023-05-12 17:33] LABS: HEMOGLOBIN A1c 5.2 % (4.0-6.0)
[2023-05-12 17:40] LABS: ALBUMIN 3.8 G/DL (3.2-5.2); ALKALINE PHOSPHATASE 68 U/L (46-116); ALT/SGPT 20 U/L (7.0-40); AST/SGOT 13 U/L (<34); BILIRUBIN,TOTAL 0.9 MG/DL (0.3-1.2); BLOOD UREA NITROGEN 14 MG/DL (9-23); CARBON DIOXIDE LEVEL 28 MMOL/L (20-31); CHLORIDE LEVEL 105 MMOL/L (98-107); CREATININE FOR GFR 0.81 MG/DL (0.70-1.30); GLOMERULAR FILTRATION RATE > 60.0 (>49); GLUCOSE, FASTING 76 MG/DL (74-106); POTASSIUM SERUM 4.2 MMOL/L (3.5-5.1); SODIUM LEVEL 138 MMOL/L (136-145); TOTAL PROTEIN 6.8 G/DL (5.7-8.2)
== END ==
LOC: M PLALAB 16:02
PROVIDERS: ATTEND Nurse Practitioner Adult Health
DX: I10 Essential (primary) hypertension (principal); Z13.1 Encounter for screening for diabetes mellitus

== ENCOUNTER → 2023-11-09 | Outpatient (CLI) | payer OTHER ==
[2023-11-09 18:41] LABS: HEMOGLOBIN A1c 5.2 % (4.0-6.0)
[2023-11-09 18:45] LABS: ALBUMIN 3.8 G/DL (3.2-5.2); ALKALINE PHOSPHATASE 68 U/L (46-116); ALT/SGPT 17 U/L (7.0-40); AST/SGOT 13 U/L (<34); BILIRUBIN,TOTAL 0.7 MG/DL (0.3-1.2); BLOOD UREA NITROGEN 13 MG/DL (9-23); CALCIUM LEVEL 8.7 MG/DL (8.3-10.6); CARBON DIOXIDE LEVEL 25 MMOL/L (20-31); CHLORIDE LEVEL 108 MMOL/L (98-107); CHOLESTEROL LEVEL 137 MG/DL (<200); CHOLESTEROL RISK RATIO 2.92 (<5); CREATININE FOR GFR 0.92 MG/DL (0.70-1.30); GLOMERULAR FILTRATION RATE > 60.0 (>49); GLUCOSE, FASTING 85 MG/DL (74-106); HDL CHOLESTEROL 46.9 MG/DL (>40); LDL CHOLESTEROL 68.1 MG/DL (<100); NON-HDL-C 90.1 MG/DL; POTASSIUM SERUM 4.4 MMOL/L (3.5-5.1); SODIUM LEVEL 139 MMOL/L (136-145); TOTAL PROTEIN 6.6 G/DL (5.7-8.2); TRIGLYCERIDES LEVEL 110 MG/DL (<150)
== END ==
LOC: M PLALAB 14:58
PROVIDERS: ATTEND Nurse Practitioner Adult Health
DX: I10 Essential (primary) hypertension (principal); Z13.1 Encounter for screening for diabetes mellitus; E78.00 Pure hypercholesterolemia, unspecified; R68.89 Other general symptoms and signs

== ENCOUNTER → 2024-02-07 | Outpatient (CLI) | payer MEDICARE, MEDICAID | LOC: M PLALAB 12:22 | PROVIDERS: ATTEND Physician Assistant | DX: R97.20 Elevated prostate specific antigen [PSA] (principal) ==

== ENCOUNTER → 2024-03-17 | Outpatient (CLI) | payer MEDICARE | LOC: M RAD 12:19 | PROVIDERS: ATTEND Physician Assistant | DX: S80.911A Unspecified superficial injury of right knee, initial encounter (principal); Y93.9 Activity, unspecified; Y92.9 Unspecified place or not applicable ==

== ENCOUNTER → 2024-08-28 | Outpatient (CLI) | payer MEDICARE, MEDICAID | LOC: M PLALAB 11:57 | PROVIDERS: ATTEND Physician Assistant | DX: N40.0 Benign prostatic hyperplasia without lower urinary tract symptoms (principal); R97.20 Elevated prostate specific antigen [PSA] ==

== ENCOUNTER → 2024-11-07 | Outpatient (CLI) | payer MEDICARE, MEDICAID ==
[2024-11-07 17:39] LABS: MEAN CORPUSCULAR HEMOGLOBIN 28.6 pg (27.0-33.0); MEAN CORPUSCULAR HGB CONC 32.5 g/dl (32.0-36.5); MEAN CORPUSCULAR VOLUME 88.1 fl (80.0-96.0); PLATELET COUNT, AUTOMATED 243 10^3/uL (150-450); RED BLOOD COUNT 4.54 10^6/uL (4.30-6.10); WHITE BLOOD COUNT 8.3 10^3/uL (4.0-10.0)
[2024-11-07 18:06] LABS: ALBUMIN 3.8 G/DL (3.2-5.2); ALKALINE PHOSPHATASE 75 U/L (40-129); ALT/SGPT 17 U/L (7.0-40); AST/SGOT 16 U/L (<34); BILIRUBIN,TOTAL 0.6 MG/DL (0.3-1.2); BLOOD UREA NITROGEN 15 MG/DL (9-23); CALCIUM LEVEL 9.3 MG/DL (8.3-10.6); CARBON DIOXIDE LEVEL 25 MMOL/L (20-31); CHLORIDE LEVEL 108 MMOL/L (98-107); CHOLESTEROL LEVEL 143 MG/DL (<200); CHOLESTEROL RISK RATIO 2.83 (<5); CREATININE FOR GFR 0.83 MG/DL (0.70-1.30); FERRITIN 171.2 NG/ML (10.5-307.3); GLOMERULAR FILTRATION RATE > 60.0 (>49); GLUCOSE, FASTING 80 MG/DL (74-106); HDL CHOLESTEROL 50.4 MG/DL (>40); HEMOGLOBIN A1c 5.3 % (4.0-6.0); LDL CHOLESTEROL 76.8 MG/DL (<100); NON-HDL-C 92.6 MG/DL; POTASSIUM SERUM 4.3 MMOL/L (3.5-5.1); SODIUM LEVEL 139 MMOL/L (136-145); TOTAL PROTEIN 7.2 G/DL (5.7-8.2); TRIGLYCERIDES LEVEL 79 MG/DL (<150)
== END ==
LOC: M PLALAB 14:01
PROVIDERS: ATTEND Nurse Practitioner Adult Health
DX: E78.00 Pure hypercholesterolemia, unspecified (principal); I10 Essential (primary) hypertension; D50.9 Iron deficiency anemia, unspecified; Z13.1 Encounter for screening for diabetes mellitus

== ENCOUNTER → 2025-03-02 | Outpatient (CLI) | payer MEDICARE, MEDICAID ==
[~2025-03-02] MED LIST changes: -FLOM0.4C39 PO; +TAMS-18 PO
== END ==
LOC: M PLALAB 11:26
PROVIDERS: ATTEND Physician Assistant
DX: R97.20 Elevated prostate specific antigen [PSA] (principal)

== ENCOUNTER → 2025-04-30 | Outpatient (CLI) | payer MEDICARE, MEDICAID ==
[2025-04-30 16:23] LABS: ALT/SGPT 18 U/L (7.0-40); AST/SGOT 21 U/L (<34); CALCIUM LEVEL 9.1 MG/DL (8.3-10.6); CARBON DIOXIDE LEVEL 27 MMOL/L (20-31); CHLORIDE LEVEL 108 MMOL/L (98-107); CREATININE FOR GFR 0.78 MG/DL (0.70-1.30); GLOMERULAR FILTRATION RATE > 90.0 (>49); POTASSIUM SERUM 4.3 MMOL/L (3.5-5.1); SODIUM LEVEL 141 MMOL/L (136-145)
== END ==
LOC: M PLALAB 13:52
PROVIDERS: ATTEND Nurse Practitioner Adult Health
DX: I10 Essential (primary) hypertension (principal)

== ENCOUNTER → 2025-05-26 | Outpatient (REF) | payer MEDICARE, MEDICAID | LOC: M LAB REF 17:20 | DX: B34.9 Viral infection, unspecified (principal) ==

== ENCOUNTER → 2025-08-31 | Outpatient (REF) | payer MEDICARE, MEDICAID ==
[~2025-08-31] MED LIST changes: -IBUP-1022 PO; +IBUP600T42 PO
== END ==
LOC: M PLALAB 13:03
PROVIDERS: ATTEND Specialist
DX: R97.20 Elevated prostate specific antigen [PSA] (principal)